=== PATIENT | male | born 1935 | race Caucasian/White ===

== ENCOUNTER 2017-09-17 17:41 | Inpatient (IN) | payer BC, MEDICARE ==
[2017-09-17 18:27] VITALS: BMI 32.9
[2017-09-17] MEDS ORDERED: Pantoprazole 40 MG VIAL IVP SCH (18:30)
[2017-09-17 18:59] LABS: #Basophils 0.1 thou/uL (0.0-0.2); #Eosinphils 0.2 thou/uL (0.0-0.7); #Lymphocytes 1.2 thou/uL (1.20-3.40); #Monocytes 0.8 thou/uL (0.11-0.59); #Neutrophils 7.5 thou/uL (1.40-6.50); %Basophils 0.6 % (0.0-1.0); %Eosinophils 1.7 % (0.0-10.0); %Lymphocytes 12.3 % (21.0-51.0); %Monocytes 7.8 % (0.0-10.0); %Neutrophils 77.6 % (42.0-75.0); Mean Corpuscular HGB CONC 33.4 g/dL (32.0-36.0); Mean Corpuscular Hemoglobin 30.4 pg (27.0-31.0); Mean Corpuscular Volume 91.1 fL (78.0-98.0); Mean Platelet Volume 6.8 fL (7.4-10.4); Platelet Count 406 thou/uL (130-400); RBC Distribution Width 12.6 % (11.5-14.5); Red Blood Cell (RBC) Count 3.96 mill/uL (4.70-6.10); White Blood Cell (WBC) Count 9.6 thou/uL (4.8-10.8)
[2017-09-17 19:13] LABS: Anion Gap 14 mmol/L (10-20); BUN (Urea Nitrogen) 37 mg/dL (8.4-25.7); Calc. Creatinine Clearance 81 mL/min (70-130); Calcium 9.6 mg/dL (7.8-10.44); Carbon Dioxide 27 mmol/L (23-31); Chloride 100 mmol/L (98-107); Estimated GFR-MDRD 67; Glucose 77 mg/dL (83-110); Potassium 4.2 mmol/L (3.5-5.1); Sodium 137 mmol/L (136-145)
[2017-09-17] MEDS: Piperacillin/Tazobactam 3.375 GM in Sodium Chloride 0.9% 100 ML IVPB SCH (20:38)
[2017-09-17] MEDS: Gabapentin 300 MG CAP PO SCH (21:16)
[2017-09-18] MEDS: Piperacillin/Tazobactam 3.375 GM in Sodium Chloride 0.9% 100 ML IVPB SCH ×4 (01:51→19:54)
[2017-09-18 04:09] LABS: #Basophils 0.1 thou/uL (0.0-0.2); #Eosinphils 0.3 thou/uL (0.0-0.7); #Lymphocytes 1.4 thou/uL (1.20-3.40); #Monocytes 0.7 thou/uL (0.11-0.59); %Basophils 0.7 % (0.0-1.0); %Eosinophils 3.3 % (0.0-10.0); %Lymphocytes 16.9 % (21.0-51.0); %Monocytes 8.1 % (0.0-10.0); Hemoglobin 10.5 g/dL (14.0-18.0); Mean Corpuscular HGB CONC 33.9 g/dL (32.0-36.0); Mean Corpuscular Hemoglobin 30.9 pg (27.0-31.0); Mean Corpuscular Volume 91.2 fL (78.0-98.0); Mean Platelet Volume 6.7 fL (7.4-10.4); Platelet Count 346 thou/uL (130-400); RBC Distribution Width 12.6 % (11.5-14.5); White Blood Cell (WBC) Count 8.4 thou/uL (4.8-10.8)
[2017-09-18 04:24] LABS: Anion Gap 10 mmol/L (10-20); BUN (Urea Nitrogen) 31 mg/dL (8.4-25.7); Calc. Creatinine Clearance 96 mL/min (70-130); Calcium 8.4 mg/dL (7.8-10.44); Carbon Dioxide 27 mmol/L (23-31); Chloride 105 mmol/L (98-107); Estimated GFR-MDRD 82; Glucose 91 mg/dL (83-110); Sodium 138 mmol/L (136-145)
[2017-09-18] MEDS: Levothyroxine 150 MCG TAB PO SCH (05:30)
--- NOTE | 2017-09-18 08:10 | ULT ---
RIGHT UPPER QUADRANT ULTRASOUND: Date: 09/18/17 INDICATION: Concern for cholelithiasis. FINDINGS: There is a partially underdistended gallbladder with sludge and stones. No sonographic Rios's sign is reported. Common bile duct measures 4.2 mm. Pancreas is obscured. Right kidney measures 12.0 x 5.4 x 5.3 cm. There is a 1.2 cm exophytic cyst seen off the superior to mid pole of the right kidney. Smaller, 8.0 mm, cyst is seen off the anterior aspect of the upper pole of the right kidney. There is an adrenal adenoma seen within the right adrenal gland as seen and evaluated on comparison C Ts from 2004 and 2017. Liver is mildly enlarged, measuring 22.8 cm. IMPRESSION: 1. Cholelithiasis and gallbladder sludge without evidence of cholecystitis. 2. Right renal cyst. 3. Right adrenal adenoma. POS: [facility]
[2017-09-18] MEDS: Gabapentin 100 MG CAP PO SCH (09:21)
[2017-09-18] MEDS: Pantoprazole 40 MG VIAL IVP SCH (09:22)
[2017-09-18] MEDS: Gabapentin 300 MG CAP PO SCH (21:03)
[2017-09-19] MEDS: Piperacillin/Tazobactam 3.375 GM in Sodium Chloride 0.9% 100 ML IVPB SCH ×2 (01:50→08:39)
[2017-09-19 05:44] LABS: #Basophils 0.1 thou/uL (0.0-0.2); #Eosinphils 0.3 thou/uL (0.0-0.7); #Lymphocytes 1.4 thou/uL (1.20-3.40); #Monocytes 0.6 thou/uL (0.11-0.59); #Neutrophils 6.4 thou/uL (1.40-6.50); %Basophils 0.7 % (0.0-1.0); %Eosinophils 3.3 % (0.0-10.0); %Lymphocytes 15.7 % (21.0-51.0); %Monocytes 7.3 % (0.0-10.0); Hemoglobin 10.7 g/dL (14.0-18.0); Mean Corpuscular HGB CONC 33.2 g/dL (32.0-36.0); Mean Corpuscular Hemoglobin 30.6 pg (27.0-31.0); Mean Corpuscular Volume 92.3 fL (78.0-98.0); Mean Platelet Volume 6.8 fL (7.4-10.4); Platelet Count 433 thou/uL (130-400); RBC Distribution Width 12.6 % (11.5-14.5); White Blood Cell (WBC) Count 8.8 thou/uL (4.8-10.8)
[2017-09-19] MEDS: Levothyroxine 150 MCG TAB PO SCH (07:11)
[2017-09-19 08:27] VITALS: TEMP 97.5
[2017-09-19] MEDS: Gabapentin 100 MG CAP PO SCH (08:40)
[2017-09-19] MEDS: Pantoprazole 40 MG VIAL IVP SCH (08:41)
--- NOTE | 2017-09-19 11:29 | PRG ---
DATE OF SERVICE: 09/19/2017 SUBJECTIVE: Mr. Tsai feels better today, has no pain, no nausea. He is tolerating regular diet starting this morning. OBJECTIVE: VITAL SIGNS: He is afebrile. Vital signs are stable. ABDOMEN: Soft, nontender, nondistended. ASSESSMENT: Enteritis, resolving. PLAN: Discharge home on oral antibiotics for another week. Follow up with Dr. Yap. The me ntions gallstones seen on CT done at the [facility]. He does have chronic right subscapular p ain, so I suspect this is symptomatic, I would recommend elective outpatient laparoscopic cholecystec kati at a later date, not right now.
--- NOTE | 2017-09-19 11:34 | DIS ---
DATE OF ADMISSION: 09/17/2017 DATE OF DISCHARGE: 09/19/2017 ADMITTING DIAGNOSES: Small bowel enteritis, gout, benign prostatic hyperplasia, chronic pain, venous stasis disease. DISCHARGE DIAGNOSES: Small bowel enteritis, gout, benign prostatic hyperplasia, chronic pain, venous stasis disease. PROCEDURES: None. CONDITION AT DISCHARGE: Improved. STAFF: Taz Yap M.D. HOSPITAL COURSE: The patient was admitted with small bowel enteritis, initially on clear liquids onl y, on broad spectrum antibiotics. He is now improved clinically, has no residual pain. This morning, his infectious count is normal. His vital signs are stable. He is to be discharged home. We will give him a week of outpatient antibiotics. He will follow up with Dr. Yap in a week.
[2017-09-19 12:10] VITALS: BP 102/61
== END 2017-09-19 13:51 | disposition home or self-care (01) | DRG 392 ==
LOC: ONC 17:41
PROVIDERS: ADMIT Surgery; ATTEND Surgery
DX: K52.9 Noninfective gastroenteritis and colitis, unspecified (principal); M10.9 Gout, unspecified; N40.0 Benign prostatic hyperplasia without lower urinary tract symptoms; I87.8 Other specified disorders of veins; G89.29 Other chronic pain
CPT/HCPCS: 36415; 76705; 80048; 85025; A4216; C9113; J2543; J7050

== ENCOUNTER 2017-09-30 16:26 | Inpatient (IN) | payer BC, MEDICARE ==
[2017-09-30 16:53] LABS: #Basophils 0.1 thou/uL (0.0-0.2); #Eosinphils 0.2 thou/uL (0.0-0.7); #Lymphocytes 1.3 thou/uL (1.20-3.40); #Neutrophils 6.1 thou/uL (1.40-6.50); %Basophils 0.6 % (0.0-1.0); %Eosinophils 1.9 % (0.0-10.0); %Lymphocytes 14.8 % (21.0-51.0); %Monocytes 11.6 % (0.0-10.0); %Neutrophils 71.2 % (42.0-75.0); Mean Corpuscular HGB CONC 33.7 g/dL (32.0-36.0); Mean Corpuscular Volume 89.1 fL (78.0-98.0); Mean Platelet Volume 6.1 fL (7.4-10.4); Platelet Count 618 thou/uL (130-400); RBC Distribution Width 13.4 % (11.5-14.5); Red Blood Cell (RBC) Count 3.34 mill/uL (4.70-6.10); White Blood Cell (WBC) Count 8.6 thou/uL (4.8-10.8)
[2017-09-30 17:18] LABS: ALT (SGPT) 14 U/L (8-55); AST (SGOT) 21 U/L (5-34); Albumin 3.6 g/dL (3.4-4.8); Alkaline Phosphatase 88 U/L (40-150); Anion Gap 14 mmol/L (10-20); BUN (Urea Nitrogen) 26 mg/dL (8.4-25.7); Bilirubin, Total 0.6 mg/dL (0.2-1.2); CK (CPK) 47 U/L (30-200); Calc. Creatinine Clearance 0 mL/min (70-130); Calcium 9.1 mg/dL (7.8-10.44); Carbon Dioxide 28 mmol/L (23-31); Chloride 97 mmol/L (98-107); Estimated GFR-MDRD 49; Globulin 2.9 g/dL (2.4-3.5); Glucose 93 mg/dL (83-110); Lipase 89 U/L (8-78); Potassium 3.7 mmol/L (3.5-5.1); Protein, Total 6.5 g/dL (5.8-8.1); Sodium 135 mmol/L (136-145)
[2017-09-30 17:19] LABS: CKMB 1.4 ng/mL (0-6.6)
--- NOTE | 2017-09-30 17:30 | RAD ---
CHEST ONE VIEW: 09/30/17 HISTORY: Dizziness. COMPARISON: 08/21/14. FINDINGS: Left sided transvenous pacemaker with lead position right atrium and right ventricle. Elongation of t he aorta. There is cardiomegaly. Pulmonary vessels and hilum are normal. Blunting of the left costoph renic angle related to small effusion or atelectasis. The right costophrenic angle is clear. No conso lidation or masses. No pneumothorax or osseous abnormalities. IMPRESSION: 1. Cardiomegaly without evidence of congestive heart failure. 2. Small effusion or atelectasis in the left lung base. POS: [facility]
[2017-09-30 17:42] LABS: PTT 56.9 SEC (22.9-36.1)
[2017-09-30 17:44] LABS: INR-International Normal Ratio 1.9; Prothrombin Time 21.4 SEC (12.0-14.7)
[2017-09-30 17:45] LABS: Iron 23 ug/dL (65-175); Iron Binding Capacity, Total 345 mcg/dL (261-462)
[2017-09-30] MEDS ORDERED: Pantoprazole 40 MG VIAL ONE (18:04)
[2017-09-30 20:56] VITALS: BMI 31.4
[2017-09-30] MEDS ORDERED: Acetaminophen 325 MG TAB PO PRN (22:26)
[2017-09-30] MEDS ORDERED: Guaifenesin DM 100-10/5 ML UDCUP PO PRN (22:26)
[2017-09-30] MEDS ORDERED: Ondansetron HCl/PF 4 MG/2 ML Vial IVP PRN (22:26)
[2017-09-30] MEDS: Sodium Chloride 0.9% 1,000 ML IV SCH (23:23)
--- NOTE | 2017-10-01 04:08 | HP ---
REASON FOR ADMISSION: Possible GI bleed, labile hypertension. HISTORY OF PRESENT ILLNESS: The patient gives history of having black tarry stools 3 days back. He has not had any since then. He also mentions that 2 weeks back he had nausea, vomiting, and had gone to see his primary care physician Dr. Gallegos. He had a CT of the abdomen and ultrasound of the abdomen done which showed findings suggestive of inflammation/infection in the intestines. He was given an option to either undergo surgery or antibiotics. He chose antibiotics. From last week, his blood pressure has been labile, it goes down to 90/60 with dizziness and comes up to 126/70 at home. This has been ongoing from last 1 week. He checks his blood pressures 3 times a day. He went for followup with Dr. Gallegos this afternoon and was asked to go to the emergency room as due to heavy fluctuation in blood pressures with patient being symptomatic. PAST MEDICAL AND SURGICAL HISTORY: History of multiple colon surgeries, chronic atrial fibrillation with prior ablation, pacemaker, history of CHF, history of colon cancer. Tonsillectomy, mastoidectomy, vasectomy, hernia repair bilateral, has had electrical cardioversion done on 04/23/2010, AV guicho ablation done in 07/2010, had prior angiogram done in 06/2013, which showed mild to moderate coronary artery disease, diastolic dysfunction due to atrial fibrillation, hypothyroidism, sensorineural deafness. CURRENT MEDICATIONS: Aspirin 81 mg p.o. daily, Pradaxa 150 mg p.o. twice daily , allopurinol 300 mg p.o. daily, Avodart 0.5 mg p.o. q.a.m., Lasix 120 mg daily , Synthroid 150 mcg p.o. daily, Naprosyn 220 mg p.o. q.a.m., K-Dur 20 mEq p.o. daily. The patient finished a course of Levaquin and Flagyl. PERSONAL HISTORY: Does not abuse alcohol or drugs. 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 ALLERGIES: No known drug allergies. FAMILY HISTORY: No history of aortic aneurysm or coronary artery disease in both parents, per prior records. CODE STATUS: FULL. Power of mortgage assistant is his . REVIEW OF SYSTEMS: The following complete review of systems was negative, unless otherwise mentioned in the HPI or below: Constitutional: Weight loss or gain, ability to conduct usual activities. Skin: Rash, itching. Eyes: Double vision, pain. ENT/Mouth: Nose bleeding, neck stiffness, pain, tenderness. Cardiovascular: Palpitations, dyspnea on exertion, orthopnea. Respiratory: Shortness of breath, wheezing, cough, hemoptysis, fever or night sweats. Gastrointestinal: Poor appetite, abdominal pain, heartburn, nausea, vomiting, constipation, or diarrhea. Genitourinary: Urgency, frequency, dysuria, nocturia. Musculoskeletal: Pain, swelling. Neurologic/Psychiatric: Anxiety, depression. Allergy/Immunologic: Skin rash, bleeding tendency. PHYSICAL EXAMINATION: GENERAL: The patient is an 82-year-old male who is currently not in any acute distress. VITAL SIGNS: Blood pressure 103/60, pulse 70 per minute, respiratory rate 18 per minute, temperature 98.1 degrees Fahrenheit, saturating 95% on room air. NECK: Supple, no. No elevated JVD. HEENT: Eyes: Extraocular muscles intact. Pupils reacting to light. Oral cavity: Mucous membranes are moist. No exudates or congestion. CARDIOVASCULAR SYSTEM: S1, S2 heard. Regular rhythm. RESPIRATORY: Air entry 1+ bilateral. No rales or rhonchi. ABDOMEN: Soft, bowel sounds heard. No tenderness, rigidity, or guarding. EXTREMITIES: No peripheral edema or calf tenderness. VASCULAR SYSTEM: Peripheral pulses 1+ bilateral, no ischemic ulcerations or gangrene. CENTRAL NERVOUS SYSTEM: No gross focal deficits noted. The patient is alert, awake, oriented well. PSYCHIATRIC SYSTEM: The patient's mood is euthymic. No hallucinations or delusions. LABORATORY DATA AND X-RAY FINDINGS: White count of 8.6, H&H 10 and 29, platelet count 618 with 71% neutrophils, MCV is 89. PT and INR is 21 and 1.9, PTT 56. Sodium 135, serum chloride 97, serum bicarbonate 28, BUN 26, creatinine 1.4. Serum iron 23, ferritin is 80. Liver enzymes are within normal limits. Albumin is 3.6. Lipase is 89. Chest x-ray done shows cardiomegaly with small effusions. CLINICAL IMPRESSION AND PLAN: The patient will be admitted to telemetry for possible gastrointestinal bleed with labile hypertension and feeling dizzy and unable to concentrate. We will reevaluate his CBC in the morning. His current hemoglobin is 10. We will also place him on normal saline at 50 mL per hour. We will obtain orthostatic blood pressures. We will continue his Avodart, Zyloprim, Synthroid for now. He will be on Protonix 40 mg IV q.12 hourly. The patient's Pradaxa, aspirin, and Aleve all three of which will be held for now. On the , the patient had an ultrasound done which showed cholelithiasis and gallbladder sludge without evidence of cholecystitis. He was briefly admitted by Dr. Agustin for small bowel enteritis and was sent home on Levaquin and Flagyl then. If his hemoglobin stays stable around 10 grams then patient will likely require a CT of the abdomen and pelvis in the morning. If his hemoglobin drops, then he likely will need a Gastroenterology consultation. He has history of chronic atrial fibrillation and is on Pradaxa for the same. We will closely monitor his vital signs as well and he will be on normal saline at 50 mL per hour. [facility]
[2017-10-01] MEDS: Levothyroxine 150 MCG TAB PO SCH (05:22)
[2017-10-01 05:42] LABS: #Basophils 0.1 thou/uL (0.0-0.2); #Eosinphils 0.2 thou/uL (0.0-0.7); #Lymphocytes 1.5 thou/uL (1.20-3.40); #Monocytes 0.9 thou/uL (0.11-0.59); #Neutrophils 5.7 thou/uL (1.40-6.50); %Basophils 0.7 % (0.0-1.0); %Eosinophils 2.6 % (0.0-10.0); %Lymphocytes 18.1 % (21.0-51.0); %Monocytes 10.7 % (0.0-10.0); %Neutrophils 67.8 % (42.0-75.0); Hemoglobin 9.9 g/dL (14.0-18.0); Mean Corpuscular HGB CONC 32.9 g/dL (32.0-36.0); Mean Corpuscular Hemoglobin 29.5 pg (27.0-31.0); Mean Corpuscular Volume 89.6 fL (78.0-98.0); Platelet Count 580 thou/uL (130-400); RBC Distribution Width 13.3 % (11.5-14.5); Red Blood Cell (RBC) Count 3.34 mill/uL (4.70-6.10); White Blood Cell (WBC) Count 8.5 thou/uL (4.8-10.8)
[2017-10-01 05:54] LABS: Anion Gap 11 mmol/L (10-20); BUN (Urea Nitrogen) 19 mg/dL (8.4-25.7); Calc. Creatinine Clearance 75 mL/min (70-130); Calcium 8.6 mg/dL (7.8-10.44); Carbon Dioxide 28 mmol/L (23-31); Chloride 101 mmol/L (98-107); Estimated GFR-MDRD 68; Glucose 90 mg/dL (83-110); Potassium 3.4 mmol/L (3.5-5.1); Sodium 137 mmol/L (136-145)
[2017-10-01] MEDS ORDERED: Prevnar 13-Val Conj/PF 0.5 ML SYRINGE IM ONE (09:00)
[2017-10-01] MEDS: Allopurinol 300 MG TAB PO SCH (09:29)
[2017-10-01] MEDS: Dutasteride 0.5 MG CAP PO SCH (09:29)
[2017-10-01] MEDS: Pantoprazole 40 MG VIAL IVP SCH ×2 (09:30→20:28)
[2017-10-01] MEDS: Enoxaparin Sodium 40 MG/0.4 ML SYRINGE SC SCH (09:30)
--- NOTE | 2017-10-01 11:17 | PQF ---
CLINICAL DOCUMENTATION IMPROVEMENT CLARIFICATION FORM: ICD-10 Updated PLEASE DO AN ADDENDUM TO THE PROGRESS NOTE WITH ANY DOCUMENTATION UPDATES OR ADDITIONS AND CARRY THROUGH TO DC SUMMARY. THANK YOU. DATE: 10/01/17 ATTN : DR. CRUZ Please exercise your independent, professional judgment in responding to the clarification form. Clinical indicators are provided on the bottom of this form for your review Please check appropriate box(s): [ ] Acute blood loss anemia [ ] Post-op anemia related to acute blood loss [ ] Anemia: [ ] Aplastic [ ] Nutritional [ ] Drug induced (specify) ___ [ ] Hemolytic [ ] Hereditary [ ] Acquired [ ] Autoimmune [ ] Non-autoimmune [ ] Enzyme disorder [ ] Chronic Anemia: [ ] Blood loss [ ] Hemolytic [ ] Simple [ ] Due to Vitamin B12 Deficiency [ ] Other [ ] Anemia of Chronic Disease (please specify) [ ] Anemia due to Neoplasm: [ ] Primary [ ] Secondary [ ] Anemia due to (please choose): [ ] Due to Chemotherapy [ ] Due to Radiotherapy [ ] Due to Immunotherapy [ ] Other diagnosis [ ] Unable to determine In addition, please specify: Present on Admission (POA): [ ] Yes [ ] No [ ] Unable to determine For continuity of documentation, please document condition throughout progress notes and discharge summary. Thank You. CLINICAL INDICATORS - SIGNS / SYMPTOMS / LABS H&P: "REASON FOR ADMISSION: POSSIBLE GI BLEED" "THE PATIENT GIVES HISTORY OF HAVING BLACK TARRY STOOLS 3 DAYS BACK" HGN 09/30: 10.0 HGN 10/01: 9.9 RISKS: RECENT INTESTINAL INFECTION H/O MULTIPLE COLON SURGERIES ANTICOAGULATION MEDICATIONS TREATMENT: IV FLUIDS TRANSFUSION OF PACKED CELLS (This form is maintained as a part of the permanent medical record) 2014 [employer]. All Rights Reserved ANTONIETA [email or web address] Office: [phone] [facility]
[2017-10-01] MEDS ORDERED: Sodium Chloride 0.9% 250 ML IV SCH (12:45)
[2017-10-01 19:38] LABS: Hemoglobin 10.2 g/dL (14.0-18.0)
--- NOTE | 2017-10-01 23:27 | PDOC.PN ---
- Objective Resuscitation Status: Resuscitation Status FULL:Full Resuscitation Vital Signs & Weight: Vital Signs (12 hours) Temp Pulse Resp BP Pulse Ox 10/01/17 19:05 97.6 F 85 16 112/56 L 94 L 10/01/17 17:49 73 97/53 L 10/01/17 15:29 98.3 F 72 18 96/57 L 97 10/01/17 13:39 74 95/60 10/01/17 12:23 97.4 F L 70 18 93/52 L 92 L I&O: 09/30/17 10/01/17 10/02/17 06:59 06:59 06:59 Intake Total 330 2170 Output Total 275 100 Balance 55 2070 Result Diagrams: 10/01/17 19:27 10/01/17 05:25 Dx/Plan - Plan * .
[2017-10-02] MEDS: Sodium Chloride 0.9% 1,000 ML IV SCH ×2 (03:04→11:44)
--- NOTE | 2017-10-02 04:25 | CON ---
DATE OF SERVICE: 10/01/2017 REASON FOR CONSULTATION: GI bleed. HISTORY OF PRESENT ILLNESS: Mr. Tsai is an 82-year-old gentleman who was admitted to the [facility] yesterday evening from Dr. Gallegos, his primary physician's office for fluctuating blood pressures and black stools for a few days. Patient reports he was actually here after he gone to his PCP with some loose stools and had a CAT scan at [facility] that apparently showed enteritis. This was nonspecific. It was felt that possibly he had infectious enteritis. He was seen by Dr. Jose monte and ultimately discharged today after admission on liquids and outpatient antibiotics. Today, on this admission, he states that he had dizziness for about 3 days before coming in and blood pressure fluctuations. Today, the patient's tells me that he has had black stools for 3 days. The nurse tells me he has had 2 black stools today. Presently, he feels okay, although he is a darek le bit upset. He is hungry and no one is letting him eat. In March of this year, he was seen for some diarrhea and bloody stool, which was felt to be infectious as well. At that time, he had an upp er endoscopy with Dr. Fabian, EGD at this hospital on 03/23/2017 and 03/25/2017, which was normal. The patient does have a history of colorectal cancer about 10 years ago. He has had a colonoscopy about 1-2 years ago at [facility]. He reports that I did this and told him that it was normal. LABORATORY DATA: Labs today, BUN was 26 when he came in, it was 19 today. Creatinine 1.4 and 1.05 t roderick, hemoglobin was 10.0 yesterday and 9.9 at 5 this morning, it was 10.7 on 09/19/2017. His white count was 580. Presently he feels well. He denies NSAID use. He takes Pradaxa, which did not help for which he has not had. This is the second day he had not had it. He was on Lovenox, this has bee n held. INR is 1.9. Liver function tests normal, lipase today on admission, electrolytes and CBC as per HPI. PAST MEDICAL HISTORY: Paroxysmal atrial fibrillation, prior attempted ablation, pacemaker, congestiv e heart failure with ejection fraction of 50% and significant diastolic dysfunction. He has a sensor ineural deafness, hypothyroidism. PAST SURGICAL HISTORY: Includes colon resection for colon cancer, and a colonoscopy about a year or two ago that was reportedly normal. An EGD in March of this year, which was normal. Angiogram on 07/04 with moderate to mild coronary artery disease. MEDICATIONS: He is on Aspirin, Pradaxa 150 b.i.d., allopurinol, Avodart, Lasix, Synthroid, Naprosyn, K-Dur and Levaquin. He was recently on metronidazole and Flagyl. MEDICATIONS: Tylenol, zolpidem or Avodart, Lovenox, Robitussin, Synthroid, Zofran, Protonix 40 IV q. 12, normal saline 50 an hour. PHYSICAL EXAMINATION: GENERAL: He is resting in bed. His is at the bedside. He is very hard of hearing. VITAL SIGNS: Temperature is 98, pulse 72, blood pressure 197/53. LUNGS: Clear. HEART: Regular rate and rhythm. ABDOMEN: Soft and nontender. There is no rebound or guarding. Bowel sounds are present, hyperactiv e. RECTAL EXAMINATION: Reveals melenic stool. ASSESSMENT: 1. Gastrointestinal bleed. He has melena on rectal exam. He takes aspirin and Plavix and Naprosyn at home and ulcer is the most likely etiology. 2. He has had previous issues with concern for gastrointestinal bleeding, one was in March, I [facility] it was this year, but actually last year. He had an upper endoscopy at the hospital, which was n ormal. He had a colonoscopy about a year or two ago at the [facility] for history of colorectal cancer. 3. The patient is on chronic anticoagulation, is probably a little bit over anticoagulated was on Pr adaxa, one would not expect an elevated INR, his is 1.9. RECOMMENDATIONS: 1. Check an H&H now. He is hypotensive. 2. Continue IV Protonix q.12 hours. 3. EGD in the morning. 4. If patient's hemoglobin drops below 7, will need to be resuscitated.
[2017-10-02] MEDS: Levothyroxine 150 MCG TAB PO SCH (06:09)
--- NOTE | 2017-10-02 11:13 | OP ---
DATE OF PROCEDURE: 10/02/2017 SURGEON: Ronnell White M.D. PROCEDURE: Esophagogastroduodenoscopy. PREPROCEDURE DIAGNOSES: 1. Melena. 2. Mild low blood pressure, but stable hemoglobin around 10. POSTOPERATIVE DIAGNOSES: 1. Hiatal hernia with no stigmata of bleeding such as Remi ulcers or erosions. 2. Normal esophagus, no signs of esophagitis. 3. Normal stomach in forward and retroflexed views. 4. Normal duodenal bulb in second and third portion. 5. Only yellow bile was noted in the upper GI tract extending to the third portion of the duodenum. 6. Two duodenal diverticula noted. No stigmata of bleeding. RECOMMENDATIONS: 1. As the patient has had a normal colonoscopy within last year and a half at the [facility] and a normal colonoscopy about 2 years before that as well, I recommend getting a tagge d bleeding scan. 2. I would hold Lovenox and his Pradaxa. I would check serial H&Hs. If hemoglobin is less than 10 I would transfuse a unit of blood secondary to his low blood pressure. 3. Would look for cardiac causes or medication causes of his hypotension that were present on admiss ion as his hemoglobin has remained right around 10 since he has been admitted. It is unclear how muc h he is truly bleeding. ANESTHESIA: TIVA. PROCEDURE IN DETAIL: After the patient was informed of the risks, benefits and possible complication s of endoscopy to include perforation, reactions to medication and aspiration, informed consent obtai nathanael. The patient was brought to endoscopy suite where he was sedated in gradual fashion. Once he wa s comfortable a bite block was placed in the incisural orifice. The endoscope was advance through th e esophagus, stomach, and second and third portion of duodenum and to the third and fourth portion. There were no bleeding sites identified. There was clear yellow bile in the duodenum. There was a d uodenal diverticula in the third portion of the duodenum and also at the periampullary region. The p ylorus was normal. The bulb was normal. Retroflexed views in the stomach were normal except for the hiatal hernia. There were no Remi's ulcerations or erosions or Dieulafoy-like lesions. The esop hagus was normal. The scope was removed. The patient tolerated procedure well with no complications .
[2017-10-02] MEDS: Allopurinol 300 MG TAB PO SCH (11:42)
[2017-10-02] MEDS: Pantoprazole 40 MG VIAL IVP SCH ×2 (11:42→21:09)
[2017-10-02] MEDS: Dutasteride 0.5 MG CAP PO SCH (11:42)
[2017-10-02] MEDS: Enoxaparin Sodium 40 MG/0.4 ML SYRINGE SC SCH (11:53)
[2017-10-02 12:12] LABS: Hemoglobin 9.2 g/dL (14.0-18.0)
--- NOTE | 2017-10-02 15:36 | NM ---
NUCLEAR MEDICINE BLEEDING SCAN: Date: 10/02/17 HISTORY: GI bleed. Normal EGD today. Black, tarry-colored stools. Normal colonoscopy yesterday. TECHNIQUE: Patient administered 28 mCi of technetium-99m tagged red blood cells. Static images were performed fo r a total of 89 minutes. FINDINGS: Expected distribution of the radiotracer. No evidence of an active GI bleed. IMPRESSION: No scintigraphic evidence of active GI bleed. POS: [facility]
[2017-10-02] MEDS ORDERED: GoLYTELY 4,000 ml Bottle PO SCH (19:15)
[2017-10-02 19:39] LABS: Hemoglobin 10.9 g/dL (14.0-18.0)
[2017-10-03] MEDS: Sodium Chloride 0.9% 1,000 ML IV SCH ×2 (01:04→14:54)
--- NOTE | 2017-10-03 04:37 | PDOC.PN ---
- Subjective Encounter Start Date: 10/02/17 Encounter Start Time: 15:00 Subjective: nsg notes rev, radha ovn, pt still dizzy but less frequently -: no new c/o - Objective Resuscitation Status: Resuscitation Status FULL:Full Resuscitation Vital Signs & Weight: Vital Signs (12 hours) Temp Pulse Resp BP BP Pulse Ox 10/03/17 04:00 97.3 F L 88 20 133/65 10/03/17 00:00 73 16 92/59 L 10/02/17 20:00 97.9 F 77 18 117/68 96 I&O: 10/01/17 10/02/17 10/03/17 06:59 06:59 06:59 Intake Total 330 2950 735 Output Total 275 575 25 Balance 55 4285 710 Result Diagrams: 10/02/17 19:31 10/01/17 05:25 Phys Exam - Physical Examination Constitutional: NAD HEENT: PERRLA, sclera anicteric Respiratory: no wheezing, no rales, no rhonchi, clear to auscultation bilateral Cardiovascular: RRR, no significant murmur, no rub Gastrointestinal: soft, non-tender, positive bowel sounds Neurological: moves all 4 limbs Dx/Plan - Plan * dizziness with melena * pt c/o of brbpr earlier today as well * s/p endoscopy and tagged rbc scan - grossly unremarkable * apprec GI c/s * H/H grossly stable but slight downward trend hypotension * improving * hold anithypertensives and diuretics * ? related to volume loss * cautious IV hydration diet: cardiac activity: as fracisco, rec PT dvt ppx d/w pt and his at bedside NB: pt limited by hearing impairment greater than 30 min spent at bedside reviewing plan as above and discussing findings with pt and his Review of Systems - Medications/Allergies Allergies/Adverse Reactions: Allergies Allergy/AdvReac Type Severity Reaction Status Date / Time No Known Allergies Allergy Verified 09/30/17 20:47 Medications: Current Medications Acetaminophen (Tylenol) 650 mg PO Q4H PRN PRN Reason: Headache/Fever or Pain Allopurinol (Zyloprim) 300 mg PO QAM [facility] Last Admin: 10/02/17 11:42 Dose: 300 mg Dutasteride (Avodart) 0.[facility] [place] Admin: 10/02/17 11:42 Dose: 0.5 mg Guaifenesin/Dextromethorphan (Robitussin Dm) 15 ml PO Q4H PRN PRN Reason: Cough Sodium Chloride (Normal Saline 0.9%) 1,000 mls @ 75 mls/hr IV .[id number] [facility] Last Admin: 10/03/17 01:04 Dose: Not Given Levothyroxine Sodium (Synthroid) 150 mcg PO 0600 [facility] Last Admin: 10/02/17 06:09 Dose: 150 mcg Ondansetron HCl (Zofran) 4 mg IVP Q6H PRN PRN Reason: Nausea/Vomiting Pantoprazole Sodium (Protonix) 40 mg IVP Q12HR [facility] Last Admin: 10/02/17 21:09 Dose: 40 mg Sodium Chloride (Flush - Normal Saline) 10 ml IVF Q12HR [facility] Last Admin: 10/02/17 21:10 Dose: 10 ml Sodium Chloride (Flush - Normal Saline) 10 ml IVF PRN PRN PRN Reason: Saline Flush
[2017-10-03] MEDS: Levothyroxine 150 MCG TAB PO SCH (06:32)
[2017-10-03] MEDS: Pantoprazole 40 MG VIAL IVP SCH (09:12)
[2017-10-03] MEDS: Allopurinol 300 MG TAB PO SCH (09:12)
[2017-10-03] MEDS: Dutasteride 0.5 MG CAP PO SCH (09:12)
[2017-10-03] MEDS ORDERED: Promethazine HCl 25 MG/ML VIAL SLOW IVP PRN (11:45)
[2017-10-03] MEDS ORDERED: Promethazine HCl 25 MG/ML VIAL IM PRN (11:45)
[2017-10-03] MEDS ORDERED: Ondansetron HCl/PF 4 MG/2 ML Vial IVP PRN (11:45)
[2017-10-03] MEDS ORDERED: PROPOFOL 200 MG/20 ML VIAL ONE (13:04)
[2017-10-03] MEDS ORDERED: Lidocaine 1% PF 5 ML VIAL ONE (13:04)
[2017-10-03 16:52] VITALS: BP 100/66; TEMP 97.4
--- NOTE | 2017-10-03 18:10 | OP ---
DATE OF PROCEDURE: 10/03/2017 OPERATIVE PROCEDURE: Colonoscopy. PREOPERATIVE DIAGNOSES: Gastrointestinal bleeding, negative EGD. The patient has history of colon c ancer, status post surgery many years ago. The patient underwent colonoscopy. 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 At the time of endoscopy, no bleeding seen . No other pathology seen. PROCEDURE IN DETAIL: The patient was placed on his left lateral position and was given sedation by A nesthesia Department. A rectal exam was done. The scope was advanced into the rectum. No lesions f elt on rectal exam. A Pentax video colonoscope was introduced into the rectum and advanced all the w ay into the cecum. The prep was good. The mucosa appears normal throughout the colon. The appendic al opening, ileocecal valve, cecum, no pathology seen. The colon was completely free of any blood or any coffee-ground material. The prep was good. Withdrawal of scope from the cecum to the ascending colon and hepatic flexure, no pathology seen. The transverse colon showed occasional diverticula. The splenic flexure and descending colon, no pathology seen. It appears that he has had a previous s igmoid resection. The anastomotic area appears healthy. He has some couple of anastomotic are a. Retroflexion of scope in the rectum show no pathology except for small hemorrhoids. RECOMMENDATIONS: 1. Heart healthy diet. 2. From a GI standpoint, he can be discharged home today. He will follow up with Dr. Ronnell Casey as an outpatient in the future.
--- NOTE | 2017-10-04 09:02 | DIS ---
DATE OF ADMISSION: 09/30/2017 DATE OF DISCHARGE: 10/03/2017 DISCHARGE DIAGNOSES: 1. Lower gastrointestinal bleed. 2. Atrial fibrillation. 3. Borderline hypotension. 4. Dizziness. 5. History of congestive heart failure. 6. History of pacemaker. HISTORY OF PRESENT ILLNESS: This patient is an 82-year-old male with history of complicated atrial f ibrillation situation who is followed by Dr. Jonathan Box. Patient is on Pradaxa and aspirin. He presented to the emergency department with the complaint of melanotic stools. The patient also had some related dizziness, and his blood pressure was in the 90s at times. The patient reported he had had a prior history of similar symptoms with lower GI bleeding. Given the fact that he was borderlin e hypotensive and was dizzy concerning for possible symptomatic hypotension. Patient was admitted to the hospital for further evaluation. Initially, his hemoglobin was 10, platelet count was 618. INR was 1.9. PTT is 56, PT is 21. BUN 26, creatinine 1.4. Iron was 23, ferritin 80. HOSPITAL COURSE: Patient was admitted to the hospital and his Pradaxa and aspirin were held. GI was consulted. The patient subsequently underwent upper endoscopy with no significant findings. He the n underwent a GI bleeding scan, which was also unremarkable and then ultimately on the day of dischar ge colonoscopy without significant findings. The patient's hemoglobin remained stable throughout his hospitalization with the initial level being 10.0 and his level at discharge being 10.9. PLAN: The patient's blood pressure was somewhat up and down, but ultimately on the day of discharge, he was ambulating well in the hallway following his colonoscopy and his blood pressure was 98/55 but he was completely asymptomatic with that and eager for discharge. I had a long discussion with the patient regarding the risks and benefits of being on the anticoagulation in the setting of the GI ble ed. Ultimately, I believe this is something he needs to follow up with Dr. Box to discuss. In the interim, however, he should remain off the anticoagulation for approximately 1 week to allow all bleeding to stop and all bleeding areas to clot and heal properly. He understands the potential ris k of stroke during that time, albeit somewhat low. DISPOSITION: Patient will be discharged to home. He will be on his usual diet and he will continue with his usual home medications to include Avodart 0.5 mg q.a.m., aspirin 81 mg every day, allopurino l 300 q.a.m., potassium 200 mEq b.i.d., Zofran 4 mg q.6., multivitamin 1 p.o. q.a.m., levothyroxine 1 50 mcg every day, and Lasix 120 mg p.o. daily. Patient is to have his usual activity level and he is to follow up with his primary care physician, Nnamdi Gallegos in 1 week and he is to follow up with Dr. Box within 1 week as well. Patient i s to return to the emergency department, should he have any problems prior to his followup.
== END 2017-10-03 18:12 | disposition home or self-care (01) | DRG 378 ==
LOC: ERS 16:26 → 2NO 19:51
PROVIDERS: ADMIT Internal Medicine Infectious Disease; ATTEND Internal Medicine Infectious Disease
PROC: 0DJ08ZZ Inspection of Upper Intestinal Tract, Via Natural or Artificial Opening Endoscopic (ICD-10-PCS; 2017-10-02)
PROC: 0DJD8ZZ Inspection of Lower Intestinal Tract, Via Natural or Artificial Opening Endoscopic (ICD-10-PCS; principal; 2017-10-03)
DX: K92.1 Melena (principal); I50.30 Unspecified diastolic (congestive) heart failure; I48.91 Unspecified atrial fibrillation; I95.9 Hypotension, unspecified; R42 Dizziness and giddiness; K57.30 Diverticulosis of large intestine without perforation or abscess without bleeding; K44.9 Diaphragmatic hernia without obstruction or gangrene; I25.10 Atherosclerotic heart disease of native coronary artery without angina pectoris; Z85.038 Personal history of other malignant neoplasm of large intestine; Z95.0 Presence of cardiac pacemaker; Z79.01 Long term (current) use of anticoagulants; Z79.82 Long term (current) use of aspirin
CPT/HCPCS: 36415; 71045; 78278; 80048; 80053; 82274; 82550; 82553; 82728; 83540; 83550; 83690; 84443; 84484; 85014; 85018; 85025; 85610; 85730; 86850; 86870; 86900; 86901; 86905; 86922; 93005; 93306; 96361; 96374; A4216; A9604; C9113; J1650; J2001; J2704

== ENCOUNTER 2018-04-29 08:04 | Inpatient (IN) | payer BC, MEDICARE ==
[2018-04-29] MEDS ORDERED: Ondansetron PF 4 MG/2 ML Vial ONE ×2 (08:14→10:31)
[2018-04-29] MEDS ORDERED: Morphine 4 MG/ML VIAL ONE (08:30)
[2018-04-29 08:36] LABS: #Basophils 0.1 thou/uL (0.0-0.2); #Eosinphils 0.2 thou/uL (0.0-0.7); #Lymphocytes 1.2 thou/uL (1.20-3.40); #Monocytes 0.6 thou/uL (0.11-0.59); #Neutrophils 4.5 thou/uL (1.40-6.50); %Basophils 1.1 % (0.0-1.0); %Eosinophils 3.1 % (0.0-10.0); %Lymphocytes 18.1 % (21.0-51.0); %Monocytes 8.8 % (0.0-10.0); %Neutrophils 68.8 % (42.0-75.0); Hemoglobin 16.1 g/dL (14.0-18.0); Mean Corpuscular Hemoglobin 28.2 pg (27.0-31.0); Platelet Count 242 thou/uL (130-400); RBC Distribution Width 14.2 % (11.5-14.5); White Blood Cell (WBC) Count 6.6 thou/uL (4.8-10.8)
[2018-04-29 08:51] LABS: ALT (SGPT) 18 U/L (8-55); AST (SGOT) 17 U/L (5-34); Albumin 3.8 g/dL (3.4-4.8); Alkaline Phosphatase 90 U/L (40-150); Anion Gap 14 mmol/L (10-20); BUN (Urea Nitrogen) 24 mg/dL (8.4-25.7); Bilirubin, Total 0.9 mg/dL (0.2-1.2); Calc. Creatinine Clearance 0 mL/min (70-130); Calcium 9.2 mg/dL (7.8-10.44); Carbon Dioxide 22 mmol/L (23-31); Chloride 107 mmol/L (98-107); Estimated GFR-MDRD 73; Globulin 2.8 g/dL (2.4-3.5); Glucose 145 mg/dL (83-110); Lipase 40 U/L (8-78); Potassium 4.1 mmol/L (3.5-5.1); Protein, Total 6.6 g/dL (5.8-8.1); Sodium 139 mmol/L (136-145)
[2018-04-29] MEDS ORDERED: Promethazine HCl 25 MG/ML VIAL ONE (08:56)
--- NOTE | 2018-04-29 10:16 | CT ---
CTA CHEST WITH IV CONTRAST AND 3D POSTPROCESSING CTA ABDOMEN WITH IV CONTRAST AND 3D POSTPROCESSING: Date: 04/29/18 HISTORY: 82-year-old male with abdominal pain. FINDINGS: There are vascular calcifications without evidence of aneurysmal dilatation of the thoracoabdominal a karina. The lumen is well opacified without intimal flap to suggest dissection. The main pulmonary ferny tamiko are well opacified without filling defects to suggest central pulmonary embolism. There is a tin y right pleural effusion. No pericardial effusion is seen. There is incomplete visualization of a left-sided thyroid nodule. The ascending thoracic aorta measur es 4.0 cm in diameter and the descending thoracic aorta measures 3.4 cm in diameter. There are mild d ependent changes in the lung bases. 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 There is good flow in the celiac axis, SMA, MEGGAN and re nal arteries. There is suggestion of inflammatory change in the mesentery of the left lower quadrant with associated dilated small bowel loop which are incompletely visualized. A small hiatal hernia is present. No free air or free fluid is seen in the abdomen. No lymphadenopath y is noted in the chest or abdomen. There are degenerative changes in the thoracolumbar spine. No asc ites is seen. There are calcified gallstones. A 1.5 cm exophytic right renal cyst is noted. There is a fat-containing heterogenous 3.5 cm right adrenal mass, which is smaller compared to exam o f 09/16/17 (6 cm). This mass measured 3.5 cm and had findings consistent with that of a benign adenom a on 10/21/04. IMPRESSION: 1. No evidence of aortic dissection. 2. Tiny right pleural effusion. 3. Right renal cyst. 4. Cholelithiasis. 5. Heterogeneous 3.5 cm right adrenal mass with interval reduction in size since 09/06/17. 6. Changes in the LLQ as above. Etiology uncertain. Ischemic process not excluded. D/W Dr Cheikh Elder over the phone @ 9:43 am. CODE CR POS: [facility]
[2018-04-29] MEDS ORDERED: Iopamidol 370 76% 100 ML VIAL ONE (10:30)
--- NOTE | 2018-04-29 13:04 | CT ---
CT ABDOMEN AND PELVIS WITHOUT IV CONTRAST: Date: 04/29/18 INDICATION: History of abdominal pain with recent CT aortic dissection protocol performed earlier. FINDINGS: There is a closed loop small bowel obstruction with wall thickening and mesenteric edema in the left lower quadrant of the abdomen. There is no leonardo evidence of pneumatosis. Previously administered excreted IV contrast is seen within the renal collecting systems. Remainder o f exam does not appear appreciably changed from the comparison examination. Right adrenal lesion is s imilar appearing. Gallbladder demonstrates small stones. No focal hepatic lesion is evident. Pancreas is unremarkable appearing. Diverticula involving third stage of duodenum is again noted. Motion iza fact limits image detail. No definite acute osseous abnormality is evident. IMPRESSION: 1. Findings most suspicious for a closed loop obstruction in the left lower quadrant with dilated lo ops of inflamed small bowel in the left lower quadrant suspicious for strangulation. No leonardo evidenc e of pneumatosis is present. There is prominent mesenteric edema. Surgical consultation is recommende d. 2. Cholelithiasis. 3. Right adrenal lesion as detailed on prior exams. 4. Other chronic findings as above. Findings called to Dr. Elder at 1230 hours on 04/29/18. CODE CR. POS: [facility]
[2018-04-29] MEDS ORDERED: Rocuronium Bromide 10 MG/ML (10ML VIAL) ONE ×2 (13:10→16:23)
[2018-04-29] MEDS ORDERED: Vecuronium 10 MG VIAL ONE (13:10)
[2018-04-29] MEDS ORDERED: PHENYLEPHRINE-NS 100 MCG/ML 10 ML SYRINGE ONE (13:10)
[2018-04-29] MEDS ORDERED: Lidocaine 1% PF 5 ML VIAL ONE (13:10)
[2018-04-29] MEDS ORDERED: PROPOFOL 200 MG/20 ML VIAL ONE (13:10)
[2018-04-29] MEDS ORDERED: Bupivacaine HCl 0.5%/Epinephrine 1:200,000/PF 30 ml Vial ONE (14:48)
[2018-04-29] MEDS ORDERED: Fentanyl 100 MCG/2 ML VIAL ONE ×2 (15:44→21:43)
[2018-04-29] MEDS ORDERED: Sodium Chloride 0.9% 30 ML ONE (15:47)
[2018-04-29 16:00] LABS: INR-International Normal Ratio 1.3; PTT 43.3 SEC (22.9-36.1); Prothrombin Time 15.8 SEC (12.0-14.7)
[2018-04-29] MEDS ORDERED: cefOXitin Sodium/Dextrose,Iso 2 GM in Premix Bag 1 BAG IVPB SCH ×2 (16:15→21:45)
[2018-04-29] MEDS ORDERED: Norepinephrine 8 MG/0.9% NS 250 ML ONE (16:20)
[2018-04-29] MEDS ORDERED: Lidocaine 2% Jelly 5 ML TUBE ONE (16:23)
--- NOTE | 2018-04-29 16:33 | HP ---
HISTORY: This is an 82-year-old man, who was seen in an [facility] in [place] with insidious onset generalized lower abdominal pain started since last night. The pain is described as crampy and intermittent. The maximum intensity, he rated the pain as "12/10". Pain is associated with multiple episodes of dry heaves, though no leonardo emesis. Last bowel movement and flatus yesterday. The patient denies any unexplained weight loss. He has not experienced similar pain in the past. PAST MEDICAL HISTORY: Significant for coronary artery disease, chronic atrial fibrillation, status post previous pulmonary ablation, colon cancer, hypothyroidism, benign prostatic hypertrophy and gout. PAST SURGICAL HISTORY: Significant for partial colectomy, childhood tonsillectomy and adenoidectomy, bilateral inguinal herniorrhaphies, AV guicho ablation, coronary angiography, pacemaker implantation, and previous upper and lower endoscopies. SOCIAL HISTORY: He is and lives at home with his . He denies any cigarette smoking, ethanol, or illicit drug abuse. FAMILY HISTORY: Noncontributory for this patient's age. PRE-HOSPITAL MEDICATIONS: Includes; 1. Pradaxa 150 mg p.o. b.i.d. 2. Allopurinol 300 mg p.o. daily. 3. Avodart 0.5 mg p.o. daily. 4. Aspirin 81 mg p.o. daily. 5. Levothyroxine 150 mcg p.o. daily. 6. K-Dur 20 mEq p.o. daily. ALLERGIES: THE PATIENT DENIES ANY KNOWN DRUG ALLERGIES. REVIEW OF SYSTEMS: Ten-point review of systems is essentially unremarkable except as stated in past medical history and chief complaint. PHYSICAL EXAMINATION: GENERAL: This reveals an 82-year-old normally developed man, who is otherwise coherent, interactive, and appears stated age. The patient is alert and oriented x3. He appears to be in no acute distress at the time of my evaluation. VITAL SIGNS: Include blood pressure 106/68, pulse is 73, respiratory rate is 19, temperature is 98.2 degrees Fahrenheit, oxygen saturation is 93% on room air. HEENT: Reveals normocephalic and atraumatic. Pupils equal, round, reactive to light and accommodation. NECK: He has no jugular venous distention noted. HEART: Reveals irregular rate and irregular rhythm. LUNGS: Clear to auscultation bilaterally. Breathing, regular and nonlabored. ABDOMEN: Soft and distended with right lower quadrant tenderness to palpation. He has no rebound tenderness present. Liver and spleen are nonpalpable below costal margin. EXTREMITIES: Reveal 2+ radial and pedal pulses bilaterally. No ankle edema is present. NEUROLOGIC: Reveals no focal deficits present. LABORATORY FINDINGS: Today includes a CBC with 6,600 white blood cells, hemoglobin and hematocrit of 16.1 and 50.2 respectively. Platelet count is 242,000. Metabolic profile; sodium 139, potassium is 4.1, chloride is 107, bicarb is 22, BUN 24, creatinine 0.99, glucose 145, lactic acid is 1.6. AST and ALT normal at 17 and 18 respectively. Serum lipase is also normal at 40. I have personally reviewed the CT scan of the abdomen and pelvis, which was obtained earlier in [place], this is remarkable for incidental cholelithiasis. Also noted is loop of intestine in the left lower quadrant, which appeared to be closed-loop obstructed. There is surrounding fat stranding. There is otherwise no pneumatosis intestinalis observed. IMPRESSION: 1. Closed-loop small bowel obstruction, likely secondary to adhesions. 2. Qualitative coagulopathy. The patient is on Pradaxa. 3. History of chronic atrial fibrillation. 4. History of coronary artery disease. 5. History of chronic congestive heart failure. PLAN: 1. We will correct the patient's coagulopathy if indicated by coagulation studies. 2. The patient needs an urgent laparoscopic and possible laparotomy for lysis of adhesion. 3. Above findings and plan have been discussed with the patient and his at bedside. 4. I advised the patient of the risks and benefits of the proposed surgery to include, but not limited to bleeding, infection, injury to bowel or surrounding structures. 5. The patient also understands that due to his comorbidities, he faces additional risk for myocardial infarction versus perioperative respiratory failure. 6. I did inform the patient that if the bowel is nonviable, this may require segmental small bowel resection with primary anastomosis. 7. The patient and his , both indicated understanding information given. 8. I answered their questions. 9. The patient and his have granted consent for the surgical intervention. Job ID: [id number]
[2018-04-29] MEDS ORDERED: Dextrose 50% Abboject 50 ML SYRINGE SLOW IVP PRN (20:25)
[2018-04-29] MEDS ORDERED: Dextrose 5% in Water 1,000 ML IV PRN (20:25)
[2018-04-29] MEDS ORDERED: Ondansetron PF 4 MG/2 ML Vial IVP PRN (20:25)
[2018-04-29] MEDS ORDERED: Acetaminophen 1,000 MG in Premix Bag 1 BAG IVPB SCH (20:45)
[2018-04-29] MEDS ORDERED: Lactated Ringer's 1,000 ML IV SCH (20:45)
[2018-04-29] MEDS ORDERED: Propofol 1,000 MG/100 ML VIAL IV ONE (20:52)
--- NOTE | 2018-04-29 20:56 | RAD ---
SUPINE VIEW ABDOMEN: 04/29/18 HISTORY: GI bleeding. AP view abdomen obtained. There is a Dobhoff tube in place, distal tip overlying the fourth portion of the duodenum. Surgical taylor seen in the left lower abdomen. Bowel taylor also seen. No evidence of bowel obstruction or ileus seen. No dilated loops of bowel se en. A moderate amount of stool seen in the colon. IMPRESSION: No evidence of bowel obstruction or ileus. Dobhoff tube in good position. POS: [facility]
--- NOTE | 2018-04-29 21:01 | RAD ---
AP VIEW CHEST: 04/29/18 HISTORY: Endotracheal tube placement. AP view chest obtained on 04/29/18. Comparison made to previous exam from 09/30/17. AP view chest demonstrates an NG tube in place. Distal tip is overlying the body of the stomach with the side port at the region of the gastroesophageal junction. There is a dual lead intracardiac pacing device in place. A right subclavian central line is seen dis ashley tip overlying the right atrium. Cardiomegaly seen. Pulmonary vascular congestion seen. Endotracheal tube is in good position. There is some blunting of the left costophrenic angle compatible with a small left sided pleural effu tereza. IMPRESSION: 1. Cardiomegaly. 2. Lines and tubes in good position. Endotracheal tube is in good position. Nasogastric tube jaylan uld be advanced approximately 5 cm to be in optimum position. POS: [facility]
[2018-04-29 21:04] LABS: Actual Bicarbonate (HCO3a) 20.6 mEq/L (22-28); Base Excess (BEa) -6.3 mEq/L (-2.0 to +3.0); CO2 Tension 45.9 mmHg (35.0-45.0); Calcium, Ionized 1.11 mmol/L (1.12-1.30); Carboxyhemoglobin (COHb) 1.3 gm% (0.0-3.0); O2 Tension (PaO2) 123.4 mmHg (> 60.0); Potassium - ABG Lab 4.71 mmol/L (3.70-5.30); pH, Arterial 7.27 (7.35-7.45)
[2018-04-29 21:24] LABS: ALV-art Gradient 318.325 (0-20); Puncture Site LINE
[2018-04-29 21:35] LABS: #Lymphocytes 0.8 thou/uL (1.20-3.40); #Monocytes 0.6 thou/uL (0.11-0.59); #Neutrophils 11.5 thou/uL (1.40-6.50); %Eosinophils 0.1 % (0.0-10.0); %Monocytes 4.9 % (0.0-10.0); Hemoglobin 15.9 g/dL (14.0-18.0); Mean Corpuscular Hemoglobin 29.5 pg (27.0-31.0); Mean Corpuscular Volume 92.4 fL (78.0-98.0); Mean Platelet Volume 6.9 fL (7.4-10.4); Platelet Count 351 thou/uL (130-400); RBC Distribution Width 14.1 % (11.5-14.5); Red Blood Cell (RBC) Count 5.38 mill/uL (4.70-6.10); White Blood Cell (WBC) Count 12.9 thou/uL (4.8-10.8)
[2018-04-29 21:42] LABS: INR-International Normal Ratio 1.3; PTT 36.7 SEC (22.9-36.1); Prothrombin Time 16.4 SEC (12.0-14.7)
[2018-04-29 21:47] LABS: Anion Gap 12 mmol/L (10-20); BUN (Urea Nitrogen) 19 mg/dL (8.4-25.7); Calc. Creatinine Clearance 0 mL/min (70-130); Calcium 8.3 mg/dL (7.8-10.44); Carbon Dioxide 22 mmol/L (23-31); Chloride 109 mmol/L (98-107); Estimated GFR-MDRD 70; Glucose 159 mg/dL (83-110); Magnesium 1.5 mg/dL (1.6-2.6); Phosphorus 3.2 mg/dL (2.3-4.7); Potassium 4.7 mmol/L (3.5-5.1); Sodium 138 mmol/L (136-145)
[2018-04-29] MEDS ORDERED: Propofol 1,000 MG/100 ML VIAL IV PRN (21:48)
[2018-04-29] MEDS ORDERED: Fentanyl BOLUS 250 ML IVPB PRN (21:48)
[2018-04-29] MEDS ORDERED: Propofol BOLUS 1,000 MG/100 ML VIAL IV PRN (21:48)
[2018-04-29] MEDS ORDERED: Fentanyl 100 MCG/2 ML VIAL SLOW IVP SCH (22:00)
[2018-04-29] MEDS: cefOXitin Sodium/Dextrose,Iso 2 GM in Premix Bag 1 BAG IVPB SCH (22:00)
[2018-04-29] MEDS: fentaNYL Citrate/PF 2,000 MCG in Sodium Chloride 0.9% 60 ML IV SCH (22:12)
[2018-04-30] MEDS ORDERED: Lactated Ringer's 1,000 ML IV SCH (01:30)
[2018-04-30] MEDS ORDERED: Sodium Chloride 0.9% 250 ML 250 ML IVPB SCH (01:30)
[2018-04-30] MEDS ORDERED: Magnesium 2 GM/50 ML 2 GM in Premix Bag 1 BAG IVPB SCH (01:30)
[2018-04-30] MEDS ORDERED: Lactated Ringer's 500 ML IV SCH (02:45)
[2018-04-30 04:54] LABS: Band 34 % (5-11); Hemoglobin 14.7 g/dL (14.0-18.0); Lymphocytes 2 % (21-51); MDiff Complete? YES; Mean Corpuscular HGB CONC 31.7 g/dL (32.0-36.0); Mean Corpuscular Hemoglobin 29.4 pg (27.0-31.0); Mean Corpuscular Volume 92.7 fL (78.0-98.0); Mean Platelet Volume 7.4 fL (7.4-10.4); Monocytes 6 % (0-10); Neutrophil 56 % (42-75); Platelet Count 302 thou/uL (130-400); Platelet Morphology Comment Appears Adequate; RBC Distribution Width 13.9 % (11.5-14.5); Reactive Lymphocytes 2 % (0-10); White Blood Cell (WBC) Count 15.6 thou/uL (4.8-10.8)
[2018-04-30 04:56] LABS: Phosphorus 3.4 mg/dL (2.3-4.7)
[2018-04-30 05:03] LABS: Anion Gap 16 mmol/L (10-20); BUN (Urea Nitrogen) 25 mg/dL (8.4-25.7); Calc. Creatinine Clearance 49 mL/min (70-130); Carbon Dioxide 17 mmol/L (23-31); Chloride 109 mmol/L (98-107); Estimated GFR-MDRD 40; Glucose 172 mg/dL (83-110); Magnesium 2.3 mg/dL (1.6-2.6); Sodium 137 mmol/L (136-145)
[2018-04-30] MEDS: cefOXitin Sodium/Dextrose,Iso 2 GM in Premix Bag 1 BAG IVPB SCH ×2 (05:09→15:00)
--- NOTE | 2018-04-30 05:42 | OP ---
DATE OF PROCEDURE: 04/29/2018 PREOPERATIVE DIAGNOSES: 1. Acute closed-loop small-bowel obstruction. 2. Acute peritonitis secondary to #1. POSTOPERATIVE DIAGNOSES: 1. Acute closed-loop small-bowel obstruction. 2. Acute peritonitis secondary to #1. 3. Extensive intra-abdominal adhesions and strangulated proximal ileum. PROCEDURES PERFORMED: 1. Placement of a triple-lumen right subclavian central venous catheter. 2. Exploratory laparotomy. 3. Extensive adhesiolysis. 4. Segmental small bowel resection with primary anastomosis. 5. Placement of feeding nasojejunal tube. ANESTHESIA: General endotracheal. ESTIMATED BLOOD LOSS: 320 mL. FLUIDS GIVEN: 6 packs of platelets and 3500 mL of crystalloids. SPONGE AND INSTRUMENT COUNT: Verified as correct x2. COMPLICATIONS: None apparent at the time of operation. INDICATION FOR PROCEDURE: This is an 82-year-old man with history of multiple abdominal operations, who presented to the emergency department with insidious onset of generalize lower abdominal pain, which started about midnight. Pain was described as crampy and intermittent and was rated at "12/10" at maximum intensity. Clinical radiographic examination was consistent with acute closed-loop small-bowel obstruction, for which the patient was brought to the operating room for exploration. Findings are consistent with extensive intraabdominal adhesions, there is a strangulated mid jejunum involving a long segment of bowel. Distal to this, there was another shorter segment of proximal ileum, which is encased in a dense adhesion involving the umbilical mesh herniorrhaphy. DESCRIPTION OF PROCEDURE: Informed consent was obtained from the patient and his . The patient was brought to the operating room and placed in supine position. Following general anesthesia, the right chest wall was sterilely prepped and draped in usual fashion. The right subclavian vein was cannulated with an 18-gauge introducer needle returning dark venous blood. A guidewire was passed through the needle and advanced into the right subclavian vein without resistance. Needle was withdrawn over the guidewire. Stab incision was made adjacent to the guidewire using 11 scalpel. Dilator was passed over the guidewire, dilating the subcutaneous tissues. Finally, a triple-lumen central venous catheter was advanced over the guidewire and placed in the left subclavian vein without resistance. The guidewire was removed and dark venous blood was aspirated from all 3 ports, which were individually flushed with saline. Catheter was secured to anterior chest wall using 3-0 silk suture at two points. Biopatch and sterile dressings were applied. Attention was then directed to the abdomen, where we proceeded with laparotomy. A Caruso catheter was inserted and placed to bedside drain. Orogastric tube was inserted and placed to wall suction. The abdomen was sterilely prepped and draped in the usual fashion. The skin below the umbilicus was infiltrated with 0.5% Marcaine with epinephrine. A small infraumbilical incision was made using 11 scalpel at the midline. The umbilical stalk was grasped here and elevated. Veress needle was inserted and advanced into the peritoneal cavity, through which the abdomen was insufflated with 2 L of CO2 gas. Intraabdominal pressure was noted at 1 mmHg. Following abdominal insufflation, Veress needle was removed and a 5-mm trocar introduced using a Visiport under laparoscopy. Laparoscopy revealed a dense intraabdominal adhesions involving the multiple loops of small bowel and anterior abdominal wall. Also noted, he has some bloody ascites which was highly suggestive of strangulated bowel as we suspected this in a closed loop of bowel obstruction. Given this, we decided to convert this to a laparotomy. The abdomen was desufflated. All ports were removed. A midline incision was then made using a 10 scalpel. Incision was carried through subcutaneous tissues and maintained hemostasis using cautery. Fascia was incised in midline using cautery. Peritoneal cavity was carefully entered using a fresh scalpel. We encountered some adhesions along the way, which were meticulously taken down using Metzenbaum scissors. The incision was then extended superiorly and inferiorly. Dense omental adhesions were carefully taken down off the abdominal wall. We were then able to inspect the small bowel from ligament of Treitz, encountering extensive amount of jejunal diverticula along the way with no evidence of diverticulitis. Bowel to bowel adhesions were taken down using Metzenbaum scissors as they were encountered. We were then able to encounter a segment of small bowel, which is a trapped densely to the previous umbilical herniorrhaphy with mesh. This was tediously, but meticulously taken down using Metzenbaum scissors. Care was taken to avoid enterotomies. We then continued without dissection encountering a long segment of small bowel, which was trapped in an adhesive band causing a closed-loop bowel obstruction. The bowel was quite strangulated, hyperemic, and hemorrhagic. It was markedly thick walled. The mesentery also was markedly thickened and hemorrhagic. Once the adhesive bands were excised, we elected to leave the bowel to observe it for return of circulation and peristalsis. The remainder of the small bowel was freed from adhering tissues. This allowed us to run the rest of the bowel down to the terminal ileum. The large intestine was then inspected from the cecum through the ascending, transverse colon, down to the level of the colorectal anastomosis and besides some hard stools within the colon, no other pathology was palpated. The gallbladder was dilated and palpated with a small cholesterol stone. The gallbladder itself was normal appearing. Liver was palpated, free of any abnormalities. The previous orogastric tube was palpated within the gastric lumen. At this juncture, a feeding nasojejunal tube was inserted by Anesthesia. The tip of which was palpated by myself within the gastric lumen. The manipulated tip of this catheter into proximal small bowel without resistance. I then turned my attention to the previous adherent bowel to the umbilical hernia mesh. This bowel appeared to be aperistaltic. I decided to resect this bowel. To achieve this, rent was created in the mesentery proximal and distal to the involved segment, through which the AURORA stapler was introduced. Bowel was divided. Mesentry of the specimen was serially divided using LigaSure device with good hemostasis. This was passed off the operative field followed by transmission to Pathology. The staple ends were then approximated in a [id number] fashion using interrupted sutures of 3-0 silk. Enterotomies made at both apices, through which free ends of AURORA stapler were introduced and functional end-to-end, but anatomic [id number] enteroenterostomy was perfected. Mesenteric defect was closed using a running stitch of 2-0 Vicryl. I inspected the long segment of small bowel, which was previously trapped in a closed-loop obstruction and the bowel is now peristaltic and pinking up nicely. I decided to avoid resection. Finding no other pathology, exploration was terminated. All sponges and instrument were removed and accounted for. The abdominal cavity was copiously irrigated clear with saline solution, perfected hemostasis using cautery. I placed a #19 Don drain in the deep pelvis and allowing this to exit the abdominal cavity through a separate stab incision. Drain was secured to anterior abdominal wall using 2-0 silk suture. I then placed one sheet of Seprafilm in the deep pelvis, return part of the small bowel and placed two more pieces of Seprafilm in between small bowel loops prior they rest in place in the normal anatomic position. Omentum was drawn over the remainder of the viscera. Fascia was approximated in the midline using a running stitch of #1 double-stranded PDS. Subcutaneous tissue was irrigated clear with saline solution. Good hemostasis was noted. Skin was closed using taylor. Sterile dressings were applied. The patient tolerated the operation without any apparent complication and was returned to the intensive care unit in critical, but stable condition. Job ID: [id number]
[2018-04-30] MEDS ORDERED: Sodium Bicarb 50 MEQ/50 ML Abboject 8.4% SYRINGE IVP SCH (05:45)
[2018-04-30] MEDS ORDERED: Sodium Chloride 0.9% 1,000 ML IV SCH (05:45)
[2018-04-30] MEDS ORDERED: Sodium Bicarbonate 150 MEQ in Dextrose 5% in Water 1,000 ML IV SCH ×2 (05:45→09:31)
[2018-04-30] MEDS ORDERED: Sodium Bicarb 50 MEQ/50 ML VIAL ONE (05:45)
--- NOTE | 2018-04-30 06:04 | PDOC.EVN ---
Event Note - Event Note Event Note: Called by nurse overnight for minimal urine output per hour. Increased IVF with no change, CVP 1-3, IVF boluses ordered with no change. Asked to go ahead and get am labs. BP trending down. Bedside evaluation of patient and phone call to Dr. Che. Bicarb drip started and bicab bolus. DC LR. Pt on minimal sedation. Brown urine output currently from leonardo blood post OR. Bilat BS clear. Bilateral radial and pedal pulses 2+.
[2018-04-30] MEDS: HumaLOG 300 UNITS/3 ML VIAL SC PRN ×2 (06:25→12:56)
[2018-04-30 06:45] LABS: Actual Bicarbonate (HCO3a) 20.7 mEq/L (22-28); Base Excess (BEa) -2.2 mEq/L (-2.0 to +3.0); CO2 Tension 30.6 mmHg (35.0-45.0); Calcium, Ionized 1.03 mmol/L (1.12-1.30); Hemoglobin (Hb) 14.1 g/dL (14.0-18.0); O2 Tension (PaO2) 108.9 mmHg (> 60.0); Potassium - ABG Lab 4.75 mmol/L (3.70-5.30); pH, Arterial 7.45 (7.35-7.45)
[2018-04-30] MEDS ORDERED: Hydrocortisone Sod Succ/PF 100 mg/2 ml Vial IVP SCH (07:00)
[2018-04-30 07:05] LABS: Puncture Site ALINE
--- NOTE | 2018-04-30 08:46 | RAD ---
PORTABLE CHEST: DATE: 04/30/2018. PROVIDED CLINICAL HISTORY: Respiratory failure. FINDINGS: Comparison 04/29/2018. Significant interval change with respect to the prior examination is not apparent. IMPRESSION: As above. POS: [facility]
[2018-04-30] MEDS ORDERED: Enoxaparin Sodium 30 MG/0.3 ML SYRINGE SC SCH (09:00)
[2018-04-30] MEDS ORDERED: Calcium Chloride 1 GM/10 ML Abboject SYRINGE IVP STA (09:30)
[2018-04-30] MEDS ORDERED: Calcium Chloride 1 GM/10 ML Abboject SYRINGE ONE (09:31)
[2018-04-30] MEDS ORDERED: Albumin 5% 500 ML ONE (10:12)
[2018-04-30] MEDS ORDERED: Midazolam HCl 2 mg/2 ml Vial SLOW IVP PRN (11:01)
[2018-04-30] MEDS ORDERED: Famotidine/PF 20 mg/2ml Vial SLOW IVP SCH ×2 (11:15→21:00)
[2018-04-30] MEDS ORDERED: Albumin 5% 250 ML ONE (11:45)
[2018-04-30] MEDS: DOPamine 400 MG/D5W 250 ML 250 ML IVPB SCH (11:46)
[2018-04-30 13:22] LABS: Actual Bicarbonate (HCO3a) 25.8 mEq/L (22-28); Base Excess (BEa) 3.3 mEq/L (-2.0 to +3.0); CO2 Tension 32.2 mmHg (35.0-45.0); Calcium, Ionized 1.09 mmol/L (1.12-1.30); Carboxyhemoglobin (COHb) 1.2 gm% (0.0-3.0); O2 Tension (PaO2) 133.3 mmHg (> 60.0); Potassium - ABG Lab 4.22 mmol/L (3.70-5.30); pH, Arterial 7.52 (7.35-7.45)
[2018-04-30 13:29] LABS: Puncture Site ALINE
[2018-04-30 14:28] LABS: Anion Gap 9 mmol/L (10-20); BUN (Urea Nitrogen) 30 mg/dL (8.4-25.7); Calc. Creatinine Clearance 49 mL/min (70-130); Calcium 8.5 mg/dL (7.8-10.44); Carbon Dioxide 27 mmol/L (23-31); Chloride 106 mmol/L (98-107); Estimated GFR-MDRD 40; Glucose 184 mg/dL (83-110); Potassium 4.3 mmol/L (3.5-5.1); Sodium 138 mmol/L (136-145)
[2018-04-30] MEDS ORDERED: DOPamine 400 MG/D5W 250 ML 250 ML IVPB SCH (15:45)
[2018-04-30] MEDS: Heparin 5,000 UNITS/ML VIAL SC SCH ×2 (17:38→21:59)
[2018-04-30] MEDS: Dextrose 5 %-0.45 % NaCl 1,000 ML IV SCH (17:38)
[2018-04-30] MEDS: Piperacillin/Tazobactam 3.375 GM in Sodium Chloride 0.9% 100 ML IVPB SCH (22:00)
--- NOTE | 2018-04-30 22:27 | PRG ---
DATE OF SERVICE: 04/30/2018 HISTORY OF PRESENT ILLNESS: Mr. Tsai is an 82-year-old man who is postop day #1 status post exploratory laparotomy with extensive adhesiolysis, segmental small bowel resection with primary anastomosis. The patient was admitted to the intensive care unit in critical condition. Overnight, his urinary output dwindled and was poorly responsive to fluid resuscitation. This morning, I placed him on bicarbonate infusion for several hours, having also given him fluid boluses. He remains on full mechanical ventilator support. He is minimally sedated, but appears comfortable, moving all extremities and following commands. Over the course of the day, his urinary output is improving. He is now on dopamine at 3 to 5 mcg/kg per min achieving main arterial pressure of 65 to 70. PHYSICAL EXAMINATION: VITAL SIGNS: Current vital signs include blood pressure 107/47, pulse is 78, respiratory rate is 18, temperature is 100.7 degrees Fahrenheit, oxygen saturation is 96% on FiO2 of 50%. HEENT: Reveals pupils are equal, round, and reactive to light bilaterally. HEART: Reveals regular rate and rhythm. No murmurs or gallops auscultated. LUNGS: Reveal bibasilar rhonchi. Breathing is regular and nonlabored. ABDOMEN: Soft and moderately distended. Incision is intact and clean. EXTREMITIES: Reveal 2 +radial and pedal pulses bilaterally. He has bilateral pedal and ankle edema present. NEUROLOGIC: Reveals no focal deficits present. LABORATORY FINDINGS: Includes a CBC with 15,600 white blood cells, hemoglobin and hematocrit of 14.7 and 46.3 respectively. Platelet count is 302,000. Differential count is as follows, 56 segmented neutrophils, 34 bands, 2 lymphocytes, and 6 monocytes. Initial arterial blood gas today with pH 7.45, pCO2 is 31, pO2 of 109, base excess is -2.2. Ionized calcium 1.03. Metabolic profile includes sodium 138, potassium is 4.3, chloride is 106, bicarb is 27, BUN 30, creatinine is 1.67, glucose is 184. IMPRESSION: 1. Postop day #1 status post exploratory laparotomy with extensive adhesiolysis and segmental small bowel resection with primary anastomosis for strangulated closed loop small bowel obstruction. 2. Acute respiratory failure. 3. Acute kidney injury secondary to closed loop small bowel obstruction. 4. Acute metabolic alkalosis. PLAN: 1. Continue with full mechanical ventilator support until the patient is hemodynamically stable. 2. Continue with fluid resuscitation. We will discontinue bicarbonate infusion and convert to D5 half-normal saline. Monitor urinary output as endpoint of resuscitation. 3. Continue with broad-spectrum antibiotic therapy. 4. Above findings and plan has been discussed with the patient's family at bedside. They both indicated understanding of information given. I have answered their questions. TIME SPENT: Total critical care time is 50 minutes. Job ID: [id number]
[2018-05-01] MEDS: Dextrose 5 %-0.45 % NaCl 1,000 ML IV SCH ×3 (01:19→15:50)
[2018-05-01] MEDS: Piperacillin/Tazobactam 3.375 GM in Sodium Chloride 0.9% 100 ML IVPB SCH ×4 (03:37→21:05)
[2018-05-01 04:10] LABS: Lactic Acid 1.9 mmol/L (0.5-2.2)
[2018-05-01 04:14] LABS: Anion Gap 11 mmol/L (10-20); BUN (Urea Nitrogen) 30 mg/dL (8.4-25.7); Calc. Creatinine Clearance 57 mL/min (70-130); Carbon Dioxide 28 mmol/L (23-31); Chloride 104 mmol/L (98-107); Estimated GFR-MDRD 48; Glucose 146 mg/dL (83-110); Magnesium 2.1 mg/dL (1.6-2.6); Phosphorus 2.5 mg/dL (2.3-4.7); Potassium 3.7 mmol/L (3.5-5.1); Sodium 139 mmol/L (136-145)
[2018-05-01 04:18] LABS: Band 20 % (5-11); Hemoglobin 10.4 g/dL (14.0-18.0); Hypochromia SLIGHT = 6-15 cells (100X) (0-5/hpf); Lymphocytes 1 % (21-51); MDiff Complete? YES; Mean Corpuscular HGB CONC 32.7 g/dL (32.0-36.0); Mean Corpuscular Hemoglobin 30.1 pg (27.0-31.0); Monocytes 4 % (0-10); Neutrophil 73 % (42-75); Platelet Count 186 thou/uL (130-400); Platelet Morphology Comment Appears Adequate; Reactive Lymphocytes 2 % (0-10); Red Blood Cell (RBC) Count 3.47 mill/uL (4.70-6.10); White Blood Cell (WBC) Count 16.9 thou/uL (4.8-10.8)
[2018-05-01 07:08] LABS: Actual Bicarbonate (HCO3a) 27.4 mEq/L (22-28); Base Excess (BEa) 3.8 mEq/L (-2.0 to +3.0); CO2 Tension 37.7 mmHg (35.0-45.0); Calcium, Ionized 1.06 mmol/L (1.12-1.30); Carboxyhemoglobin (COHb) 0.8 gm% (0.0-3.0); Hemoglobin (Hb) 11.2 g/dL (14.0-18.0); O2 Tension (PaO2) 87.6 mmHg (> 60.0); Potassium - ABG Lab 3.53 mmol/L (3.70-5.30); pH, Arterial 7.48 (7.35-7.45)
[2018-05-01 08:31] LABS: ALV-art Gradient 150.475 (0-20); Puncture Site ALINE
[2018-05-01] MEDS ORDERED: Pantoprazole 40 MG VIAL IVP SCH ×2 (09:00)
[2018-05-01] MEDS: Heparin 5,000 UNITS/ML VIAL SC SCH ×3 (09:01→21:05)
[2018-05-01] MEDS: Pantoprazole 40 MG VIAL IVP SCH ×2 (09:04→21:06)
[2018-05-01] MEDS ORDERED: Potassium Phosphate 30 MMOL in Sodium Chloride 0.9% 500 ML IVPB SCH (10:45)
--- NOTE | 2018-05-01 11:26 | PRG ---
DATE OF SERVICE: 05/01/2018 SUBJECTIVE: Mr. Tsai is an 82-year-old man who is 2 days status post exploratory laparotomy, extensive adhesiolysis, segmental small bowel resection, primary anastomosis. The patient remains on full mechanical ventilator support. Blood pressure is stable now. Urinary output is improving. He requires dopamine at 5 mcg/kg/min to sustain mean arterial pressure of almost 70. The patient is lightly sedated on fentanyl at 25 mcg/hr. With that, he moves all extremities and follows commands. He tolerates trophic feeds at 10 mL/hr. OBJECTIVE: VITAL SIGNS: This morning includes blood pressure 107/54, pulse is 78, respiratory rate is 16, temperature is 99.4 degrees Fahrenheit. Maximum temperature in the last 24 hours, however, is 100.7 degrees Fahrenheit. HEENT: Pupils are equal, round, and reactive to light and accommodation. He has decreased scleral edema. NECK: He has no jugular venous distention noted. HEART: Reveals regular rate and rhythm. No murmurs or gallops auscultated. LUNGS: Clear to auscultation bilaterally. Breathing, regular and nonlabored. ABDOMEN: Soft and moderately distended. Incision is intact clean and dry. Liver and spleen nonpalpable below costal margin. NEUROLOGIC: Reveals no focal deficits present. LABORATORY FINDINGS: Today includes a CBC with 16,900 white blood cells, hemoglobin and hematocrit 10.4 and 31.9 respectively. Platelet count is 186,000. Differential count as follows 73 segmented neutrophils, 20 bands, 1 lymphocyte, and 4 monocytes. Arterial blood gas this morning pH 7.48, pCO2 is 38, PO2 is 88, oxygen saturation 97%, base excess 3.8, ionized calcium is 1.06 and this is on FiO2 of 40%. Metabolic profile; sodium 139, potassium is 3.7, chloride is 104, bicarb is 28, BUN and creatinine 30 and 1.42 respectively which is better than 30 and 1.67 yesterday. Glucose is 146, magnesium is 2.1 and phosphorus is 2.5. IMPRESSIONS: 1. Postoperative day #2 status post exploratory laparotomy with segmental small bowel resection. 2. Resolving acute respiratory failure. 3. Resolving acute septic shock. PLAN: 1. Continue fluid resuscitation. Monitor urinary output and renal function as endpoint of resuscitation. 2. Correct abnormal electrolytes. 3. We will initiate weaning on the mechanical ventilator support and consider extubation once the patient's hemodynamic and neurological status indicates. 4. Acute kidney injury is resolving. No further intervention here warranted. Above findings and plan discussed with the patient's and daughter at bedside. They indicated understanding of information given. I have answered their questions. Total critical care time is 45 minutes. Job ID: [id number]
[2018-05-01 14:21] LABS: #Lymphocytes 0.6 thou/uL (1.20-3.40); #Monocytes 0.7 thou/uL (0.11-0.59); #Neutrophils 17.4 thou/uL (1.40-6.50); %Basophils 0.1 % (0.0-1.0); %Eosinophils 0.1 % (0.0-10.0); %Lymphocytes 3.2 % (21.0-51.0); %Monocytes 3.5 % (0.0-10.0); %Neutrophils 93.2 % (42.0-75.0); Hemoglobin 10.4 g/dL (14.0-18.0); Mean Corpuscular Hemoglobin 29.6 pg (27.0-31.0); Mean Corpuscular Volume 92.7 fL (78.0-98.0); Mean Platelet Volume 7.3 fL (7.4-10.4); Platelet Count 207 thou/uL (130-400); RBC Distribution Width 13.8 % (11.5-14.5); White Blood Cell (WBC) Count 18.7 thou/uL (4.8-10.8)
[2018-05-01 14:27] LABS: INR-International Normal Ratio 1.4; Prothrombin Time 17.5 SEC (12.0-14.7)
[2018-05-01] MEDS: DOPamine 400 MG/D5W 250 ML 250 ML IVPB SCH (15:49)
[2018-05-01] MEDS: Sodium Chloride 0.9% (PF) 10 ML VIAL FS PRN (21:06)
[2018-05-01] MEDS: fentaNYL Citrate/PF 2,000 MCG in Sodium Chloride 0.9% 60 ML IV SCH (22:34)
[2018-05-02] MEDS: Dextrose 5 %-0.45 % NaCl 1,000 ML IV SCH ×2 (02:35→18:32)
[2018-05-02] MEDS: DOPamine 400 MG/D5W 250 ML 250 ML IVPB SCH ×2 (02:45→18:49)
[2018-05-02] MEDS: Piperacillin/Tazobactam 3.375 GM in Sodium Chloride 0.9% 100 ML IVPB SCH ×4 (04:28→21:02)
[2018-05-02 04:57] LABS: Anion Gap 10 mmol/L (10-20); BUN (Urea Nitrogen) 25 mg/dL (8.4-25.7); Calc. Creatinine Clearance 74 mL/min (70-130); Calcium 7.8 mg/dL (7.8-10.44); Carbon Dioxide 27 mmol/L (23-31); Chloride 106 mmol/L (98-107); Estimated GFR-MDRD 64; Glucose 142 mg/dL (83-110); Phosphorus 2.7 mg/dL (2.3-4.7); Potassium 3.8 mmol/L (3.5-5.1); Sodium 139 mmol/L (136-145)
[2018-05-02 05:01] LABS: Band 26 % (5-11); Hemoglobin 9.4 g/dL (14.0-18.0); Lymphocytes 3 % (21-51); MDiff Complete? YES; Mean Corpuscular HGB CONC 33.1 g/dL (32.0-36.0); Mean Corpuscular Hemoglobin 30.5 pg (27.0-31.0); Mean Corpuscular Volume 92.1 fL (78.0-98.0); Mean Platelet Volume 7.4 fL (7.4-10.4); Monocytes 1 % (0-10); Neutrophil 70 % (42-75); Platelet Count 181 thou/uL (130-400); Platelet Morphology Comment Appears Adequate; RBC Distribution Width 13.7 % (11.5-14.5); White Blood Cell (WBC) Count 13.8 thou/uL (4.8-10.8)
[2018-05-02 07:13] LABS: Actual Bicarbonate (HCO3a) 27.2 mEq/L (22-28); Base Excess (BEa) 3.7 mEq/L (-2.0 to +3.0); CO2 Tension 36.7 mmHg (35.0-45.0); Calcium, Ionized 1.06 mmol/L (1.12-1.30); Carboxyhemoglobin (COHb) 0.4 gm% (0.0-3.0); Hemoglobin (Hb) 9.9 g/dL (14.0-18.0); O2 Tension (PaO2) 110.1 mmHg (> 60.0); Potassium - ABG Lab 3.65 mmol/L (3.70-5.30); pH, Arterial 7.49 (7.35-7.45)
[2018-05-02 07:16] LABS: ALV-art Gradient 129.225 (0-20); Puncture Site ALINE
[2018-05-02] MEDS: Pantoprazole 40 MG VIAL IVP SCH ×2 (07:50→20:57)
[2018-05-02] MEDS: Sodium Chloride 0.9% (PF) 10 ML VIAL FS PRN ×2 (07:51→20:57)
[2018-05-02] MEDS: Heparin 5,000 UNITS/ML VIAL SC SCH ×3 (07:51→20:56)
[2018-05-02] MEDS ORDERED: Potassium Phosphate 30 MMOL in Sodium Chloride 0.9% 500 ML IVPB SCH (08:00)
[2018-05-02] MEDS ORDERED: traMADol HCl 50 MG TAB PO PRN (10:59)
[2018-05-02] MEDS: traMADol HCl 50 MG TAB PO PRN (11:24)
[2018-05-02] MEDS: Acetaminophen 1,000 MG in Premix Bag 1 BAG IVPB SCH ×2 (12:42→17:59)
--- NOTE | 2018-05-02 20:57 | PRG ---
DATE OF SERVICE: 05/02/2018 SUBJECTIVE: Mr. Tsai is an 82-year-old man, who is postop day #2, status post exploratory laparotomy, extensive adhesiolysis, segmental small-bowel resection, and primary anastomosis. The patient is on mechanical ventilatory support. He is tolerated ventilator wean. Off sedation. He moves all extremities. Follows commands. Urinary output is adequate. He tolerates trophic tube feeds. He is on dopamine at 5 mcg/kg/minute. OBJECTIVE: VITAL SIGNS: This morning as noted, blood pressure 128/60, pulse 79, respiratory rate is 22, temperature is 99.3 degrees Fahrenheit, maximum temperature in last 24 hours 100.2 degrees Fahrenheit, and oxygen saturation 100% on FiO2 of 40%. HEENT: Pupils are equal, round, and reactive to light bilaterally. NECK: He has no jugular venous distention noted. HEART: Reveals regular rate and rhythm. No murmurs or gallops auscultated. LUNGS: Reveals scattered rhonchi. Breathing, regular and nonlabored. ABDOMEN: Soft and moderately tender to palpation. Incision is intact, clean, and dry. Harsh-Parnell drain returns 440 mL of slightly serosanguineous fluid. NEUROLOGIC: Reveals no focal deficits present. LABORATORY DATA: Laboratory findings today include CBC with 13,800 white blood cells, hemoglobin and hematocrit are 9.4 and 28.5 respectively. Platelet count 181,000. Metabolic profile; sodium 139, potassium is 3.8, chloride is 106, bicarb is 27, BUN is 25, creatinine is 1.10, glucose 142, magnesium 2.0, and phosphorus is 2.7. IMPRESSION: 1. Postop day #3, status post exploratory laparotomy. 2. Resolving acute respiratory failure. 3. Resolved acute kidney injury. 4. Stable acute blood loss anemia. 5. Resolving septic shock. PLAN: 1. The patient was successfully weaned and extubated without incident. 2. We will continue with dopamine infusion and wean as tolerated, so long as the main arterial pressure remains above 60 and the patient achieving adequate urinary output. 3. We will start iron replacement therapy once bowel function returns. 4. We will increase trophic tube feeds to 20 mL/h. Above findings and plan discussed with the patient and his and daughter at bedside. They indicated understanding information given. I have answered their questions Total critical care time is 45 minutes. Job ID: [id number]
[2018-05-03] MEDS: Acetaminophen 1,000 MG in Premix Bag 1 BAG IVPB SCH ×3 (01:25→11:33)
[2018-05-03] MEDS: Dextrose 5 %-0.45 % NaCl 1,000 ML IV SCH ×4 (03:10→22:45)
[2018-05-03] MEDS: Piperacillin/Tazobactam 3.375 GM in Sodium Chloride 0.9% 100 ML IVPB SCH ×4 (05:24→21:49)
[2018-05-03] MEDS ORDERED: Calcium Chloride 1 GM/10 ML Abboject SYRINGE IVP SCH (08:00)
[2018-05-03 08:26] LABS: Hemoglobin 8.6 g/dL (14.0-18.0); Mean Corpuscular HGB CONC 32.6 g/dL (32.0-36.0); Mean Corpuscular Hemoglobin 30.4 pg (27.0-31.0); Mean Corpuscular Volume 93.4 fL (78.0-98.0); Mean Platelet Volume 7.7 fL (7.4-10.4); Platelet Count 198 thou/uL (130-400); RBC Distribution Width 13.6 % (11.5-14.5); Red Blood Cell (RBC) Count 2.83 mill/uL (4.70-6.10); White Blood Cell (WBC) Count 8.8 thou/uL (4.8-10.8)
[2018-05-03 08:43] LABS: Anion Gap 12 mmol/L (10-20); BUN (Urea Nitrogen) 23 mg/dL (8.4-25.7); Calc. Creatinine Clearance 92 mL/min (70-130); Calcium 7.8 mg/dL (7.8-10.44); Carbon Dioxide 24 mmol/L (23-31); Chloride 109 mmol/L (98-107); Estimated GFR-MDRD 82; Glucose 129 mg/dL (83-110); Magnesium 1.9 mg/dL (1.6-2.6); Phosphorus 2.5 mg/dL (2.3-4.7); Potassium 3.8 mmol/L (3.5-5.1); Sodium 141 mmol/L (136-145)
[2018-05-03] MEDS: Pantoprazole 40 MG VIAL IVP SCH ×2 (08:48→20:11)
[2018-05-03] MEDS: Sodium Chloride 0.9% (PF) 10 ML VIAL FS PRN (08:48)
[2018-05-03] MEDS ORDERED: Potassium Phosphate 15 MMOL in Sodium Chloride 0.9% 250 ML 250 ML IVPB SCH (09:00)
[2018-05-03 09:09] LABS: Band 13 % (5-11); Eosinophils 2 % (0-10); Lymphocytes 8 % (21-51); MDiff Complete? YES; Monocytes 6 % (0-10); Neutrophil 71 % (42-75); Platelet Morphology Comment Appears Adequate; Polychromasia SLIGHT = 2-3 cells (100X) (0-2/hpf)
[2018-05-03] MEDS: Heparin 5,000 UNITS/ML VIAL SC SCH ×2 (09:51→20:24)
--- NOTE | 2018-05-03 13:59 | PRG ---
DATE OF SERVICE: 05/03/2018 SUBJECTIVE: Stephen Tsai is doing well today. He is confused. He is in ICU. He does interact, but he is confused. OBJECTIVE: VITAL SIGNS: Heart rate 75, respiratory rate 21, blood pressure 95/56. LUNGS: Clear to auscultation. CARDIAC: Regular rate and rhythm. No murmur or gallop. ABDOMEN: Soft. Bowel sounds present. Nondistended, non-tympanitic. Midline wound taylor intact, wound intact. No evidence of infection. LABORATORY DATA: This morning, his white count is 8 and hemoglobin 8.6. Basic metabolic profile is normal. ASSESSMENT AND PLAN: 1. Improved mental status postoperatively. Continue to observe in ICU. 2. Begin full liquids as tolerated. 3. Acute kidney injury, improved. 4. Stable anemia. No indications for transfusion. 5. Advance diet. Job ID: [id number]
[2018-05-04] MEDS: traMADol HCl 50 MG TAB PO PRN ×2 (00:23→11:03)
[2018-05-04 04:58] LABS: #Lymphocytes 0.4 thou/uL (1.20-3.40); #Monocytes 0.6 thou/uL (0.11-0.59); %Basophils 0.1 % (0.0-1.0); %Eosinophils 0.4 % (0.0-10.0); %Lymphocytes 3.6 % (21.0-51.0); %Monocytes 5.6 % (0.0-10.0); %Neutrophils 90.3 % (42.0-75.0); Hemoglobin 8.9 g/dL (14.0-18.0); Mean Corpuscular HGB CONC 31.3 g/dL (32.0-36.0); Mean Corpuscular Hemoglobin 29.4 pg (27.0-31.0); Mean Corpuscular Volume 93.7 fL (78.0-98.0); Mean Platelet Volume 7.3 fL (7.4-10.4); Platelet Count 250 thou/uL (130-400); RBC Distribution Width 13.7 % (11.5-14.5); Red Blood Cell (RBC) Count 3.03 mill/uL (4.70-6.10)
[2018-05-04] MEDS: Piperacillin/Tazobactam 3.375 GM in Sodium Chloride 0.9% 100 ML IVPB SCH ×4 (05:01→21:28)
[2018-05-04] MEDS: Dextrose 5 %-0.45 % NaCl 1,000 ML IV SCH ×2 (05:01→11:51)
[2018-05-04 05:22] LABS: Anion Gap 9 mmol/L (10-20); BUN (Urea Nitrogen) 22 mg/dL (8.4-25.7); Calc. Creatinine Clearance 92 mL/min (70-130); Calcium 8.4 mg/dL (7.8-10.44); Carbon Dioxide 24 mmol/L (23-31); Chloride 108 mmol/L (98-107); Estimated GFR-MDRD 82; Glucose 146 mg/dL (83-110); Magnesium 1.9 mg/dL (1.6-2.6); Phosphorus 2.1 mg/dL (2.3-4.7); Potassium 3.5 mmol/L (3.5-5.1); Sodium 137 mmol/L (136-145)
[2018-05-04] MEDS ORDERED: Magnesium 2 GM/50 ML 2 GM in Premix Bag 1 BAG IVPB SCH (08:00)
[2018-05-04] MEDS ORDERED: Potassium Phosphate 30 MMOL in Sodium Chloride 0.9% 500 ML IVPB SCH (08:00)
[2018-05-04] MEDS ORDERED: Potassium Phosphate 30 MMOL, Magnesium Sulfate 2 GM in Sodium Chloride 0.9% 250 ML 250 ML IVPB SCH (08:15)
[2018-05-04] MEDS ORDERED: Furosemide 40 MG/4 ML VIAL SLOW IVP SCH (08:30)
[2018-05-04] MEDS: Heparin 5,000 UNITS/ML VIAL SC SCH ×2 (09:01→21:27)
[2018-05-04] MEDS: Pantoprazole 40 MG VIAL IVP SCH ×2 (09:02→21:28)
--- NOTE | 2018-05-04 12:03 | ULT ---
ULTRASOUND RENAL BILATERAL STANDARD: Date: 05/04/18 HISTORY: Acute renal failure. COMPARISON: None. FINDINGS: Urinary bladder is decompressed with a Caruso catheter. Left kidney is not seen. Right kidney measures 12.2 x 5.7 x 5.3 cm with an exophytic cyst. IMPRESSION: 1. No evidence for obstructive uropathy on the right. Left kidney not seen. 2. Decompressed urinary bladder with a Caruso catheter. POS: [facility]
--- NOTE | 2018-05-04 14:19 | PRG ---
DATE OF SERVICE: 05/04/2018 SUBJECTIVE: Mr. Tsai is an 82-year-old man, who is postoperative day #5 status post exploratory laparotomy, extensive adhesiolysis, segmental small bowel resection with primary anastomosis. The patient was successfully extubated 2 days previously. He has been off dopamine infusion over the last 24 hours. Blood pressure is stable. The patient is awake today, but confused, though interactive. He does follow commands. [place] Coma Scale is noted at E4, V4, M6. Tube feeds were placed on hold as the patient was nauseated earlier today. Urinary output has been adequate. OBJECTIVE: VITAL SIGNS: Today include blood pressure 125/80, pulse is 74, respiratory rate is 26, maximum temperature in the last 24 hours is 98.7 degrees Fahrenheit, oxygen saturation is 96% on 4 L by nasal cannula oxygen. HEENT: Reveals pupils are equal, round, and reactive to light and accommodation. NECK: He does have jugular venous distention noted. HEART: Reveals irregular rate and irregular rhythm. LUNGS: Reveal bibasilar rhonchi. Breathing, regular and nonlabored. He has few expiratory wheezes present. ABDOMEN: Soft and distended. Incision is intact with incisional tenderness to palpation. Harsh-Parnell drain returns 170 mL of serous fluid over the last 24 hours. He has bowel sounds in all 4 quadrants. NEUROLOGIC: Reveals no focal deficits present. LABORATORY FINDINGS: Today include a CBC with 10,000 white blood cells, hemoglobin and hematocrit 8.9 and 28.4 respectively, platelet count is 250,000. Metabolic profile; sodium 137, potassium is 3.5, chloride is 108, bicarb is 24, BUN 22, creatinine 0.89, glucose is 146, magnesium is 1.9, phosphorus is 2.1. BNP is 338.5. Troponin I is 0.012. IMPRESSION: 1. Postoperative day #5 status post exploratory laparotomy, extensive adhesiolysis, and segmental small bowel resection with primary anastomosis. 2. Acute metabolic encephalopathy. 3. Acute hypokalemia. 4. Acute hypophosphatemia. 5. Acute hypomagnesemia. 6. Acute pulmonary insufficiency. PLAN: 1. Correct abnormal electrolytes. 2. Increase activity per Physical and Occupational Therapy. 3. Optimize pulmonary toilet in addition to bronchodilator therapy. 4. We will decrease IV fluid at this time and obtain 2D echocardiography to evaluate cardiac chamber size, wall motion, and function. 5. We will ask Cardiology to evaluate the patient with regard to the recent runs of ventricular tachycardia on the monitor. 6. Above findings and plan have been discussed with the patient's family. 7. We anticipate the patient will be transferred ultimately to inpatient rehabilitation once he becomes hemodynamically and neurologically stable. Job ID: [id number] MTDD
[2018-05-04 14:52] LABS: Anion Gap 14 mmol/L (10-20); BUN (Urea Nitrogen) 27 mg/dL (8.4-25.7); Calc. Creatinine Clearance 73 mL/min (70-130); Calcium 8.6 mg/dL (7.8-10.44); Carbon Dioxide 23 mmol/L (23-31); Chloride 109 mmol/L (98-107); Estimated GFR-MDRD 64; Glucose 136 mg/dL (83-110); Magnesium 2.3 mg/dL (1.6-2.6); Phosphorus 3.9 mg/dL (2.3-4.7); Potassium 4.1 mmol/L (3.5-5.1); Sodium 142 mmol/L (136-145)
--- NOTE | 2018-05-04 14:55 | CON ---
DATE OF CONSULTATION: 05/04/2018 [employer]IMARY [employer] AND TRACK AND FIELD COACH: Dr. Jonathan Box. HISTORY OF PRESENT ILLNESS: Mr. Tsai is a pleasant 82-year-old white gentleman, who comes to the hospital for abdominal pain. He was diagnosed with a closed-loop small bowel obstruction and acute peritonitis. Secondary to this, he was taken to the OR on the 29 of April for this and had an exploratory laparotomy with extensive adhesiolysis, segmental small-bowel resection with primary anastomosis and placement of feeding nasojejunal tube. He did well postoperatively. He has a pacemaker, unknown reasons for the pacemaker, but he has had history of atrial fibrillation, status post ablation. He may have had AVJ ablation. He has been in a postoperative state, doing well and started having several runs of a wide-complex irregular rhythm which was thought to be ventricular tachycardia, so Cardiology was consulted for this. On my evaluation, Mr. Tsai denies any chest pain, tightness, or pressure; only abdominal pain, which is much better since surgery. He is somewhat sedated and difficult to arouse but when arouse, he is able to converse. He has no other issues at that time. PAST MEDICAL HISTORY: 1. Atrial fibrillation, status post ablation from what I can tell. 2. Pacemaker placement. 3. Coronary artery disease. 4. Chronic atrial fibrillation. 5. Colon cancer. 6. Hypothyroidism. 7. BPH. 8. Gout. PAST SURGICAL HISTORY: 1. Partial colectomy. 2. Tonsillectomy. 3. Adenoidectomy. 4. Bilateral inguinal herniorrhaphies. 5. AV guicho ablation. 6. Coronary angiography. 7. Pacemaker implantation. 8. Upper and lower endoscopies. SOCIAL HISTORY: No alcohol, tobacco, or drugs. FAMILY HISTORY: Noncontributory. OUTPATIENT MEDICATIONS: Include, 1. Pradaxa 150 mg b.i.d. 2. Allopurinol 300 mg a day. 3. Avodart. 4. Aspirin 81 a day. 5. Levothyroxine 150 mcg a day. 6. Potassium chloride 20 mEq a day. ALLERGIES: NO KNOWN DRUG ALLERGIES. REVIEW OF SYSTEMS: Unobtainable as the patient is mostly sedated. PHYSICAL EXAMINATION: VITAL SIGNS: Temperature 98.4. His last fever was on the at 100.2. He had up to 100.9 on the 9th. Pulse 75, respiratory rate 30, saturating 95% on 1 L, blood pressure 135/78. GENERAL: Sedated, but easily arousable. HEENT: Normocephalic and atraumatic. NECK: Supple. LUNGS: Have mild crackles at bases. CARDIOVASCULAR: S1 and S2. No S3 or S4. There is a grade 2/6 systolic murmur at right upper sternal border. ABDOMEN: Soft. Positive bowel sounds. EXTREMITIES: Trace edema. SKIN: Warm and dry. LABORATORY DATA AND DIAGNOSTIC STUDIES: Laboratory work was reviewed. CBC with a white count of 10, hemoglobin 8.9, hematocrit 28, platelet count 250. Coags were reviewed. ABG was reviewed. Chemistry was reviewed. BNP was 338. Troponin was negative x2; one on the , one on the . Normal electrolytes. Glucose was 146. Lactic acid 1.9, this was on the 01 of May. Magnesium is normal. Phosphorus, a little bit on the low side. Renal ultrasound was reviewed. Chest x-ray showed dual chamber pacemaker in place with no evident change. ASSESSMENT: 1. Wide-complex tachycardia. 2. History of chronic atrial fibrillation. 3. History of AVJ ablation. 4. Pacemaker placement. PLAN: 1. We will get an interrogation of the device to see if this is in fact VT at times. It looks on the tracing that it could be artifact. At other times, it could also seem like it is atrial fibrillation. However, if he has had an AVJ ablation, this is less likely. Hopefully, the interrogation will give us some light to this matter. 2. Given his severe illness and the possibility of this being VT, some of it looks polymorphic at times, on the side of caution, we will start on amiodarone drip. We will get an echocardiogram. 3. We will follow. 4. Further recommendations per results of interrogation. Job ID: [id number]
[2018-05-04] MEDS: Amiodarone 450 MG in Dextrose 5% in Water 250 ML IVPB SCH (15:01)
--- NOTE | 2018-05-04 15:39 | RAD ---
ABDOMEN TWO VIEW WITH ONE VIEW CHEST: 05/04/18 HISTORY: Respiratory failure. Abdominal distention. COMPARISON: CT of 04/29/18. FINDINGS: The pulmonary arteries are markedly enlarged. Layering left effusion. Heart size is enlarged. Likely some free intraperitoneal gas. Dobhoff tube tip at the level of the third portion of the duode num. There is distended air filled loops of bowel in the upper abdomen. IMPRESSION: 1. Dobhoff tube tip at the level of the junction of the third and fourth portions of the duodenu m. 2. Lowe volume free intraperitoneal gas with left lower quadrant and multiple surgical clips. 3. Postsurgical ileus. POS: [facility]
[2018-05-04] MEDS ORDERED: Senokot 8.6 MG TAB PO PRN (16:09)
[2018-05-05] MEDS: Amiodarone 450 MG in Dextrose 5% in Water 250 ML IVPB SCH ×2 (00:30→17:39)
[2018-05-05 04:20] LABS: Band 3 % (5-11); Hemoglobin 10.2 g/dL (14.0-18.0); Hypochromia SLIGHT = 6-15 cells (100X) (0-5/hpf); Lymphocytes 18 % (21-51); MDiff Complete? YES; Mean Corpuscular HGB CONC 31.8 g/dL (32.0-36.0); Mean Corpuscular Hemoglobin 29.4 pg (27.0-31.0); Mean Corpuscular Volume 92.5 fL (78.0-98.0); Mean Platelet Volume 7.7 fL (7.4-10.4); Neutrophil 79 % (42-75); Platelet Count 359 thou/uL (130-400); Platelet Morphology Comment Appears Adequate; Red Blood Cell (RBC) Count 3.47 mill/uL (4.70-6.10); White Blood Cell (WBC) Count 4.7 thou/uL (4.8-10.8)
[2018-05-05] MEDS: Piperacillin/Tazobactam 3.375 GM in Sodium Chloride 0.9% 100 ML IVPB SCH ×4 (04:28→21:27)
[2018-05-05 04:31] LABS: Anion Gap 14 mmol/L (10-20); BUN (Urea Nitrogen) 45 mg/dL (8.4-25.7); Calc. Creatinine Clearance 48 mL/min (70-130); Calcium 8.3 mg/dL (7.8-10.44); Carbon Dioxide 24 mmol/L (23-31); Chloride 109 mmol/L (98-107); Estimated GFR-MDRD 39; Glucose 122 mg/dL (83-110); Magnesium 2.2 mg/dL (1.6-2.6); Phosphorus 3.7 mg/dL (2.3-4.7); Sodium 143 mmol/L (136-145)
[2018-05-05] MEDS ORDERED: Acetaminophen 1,000 MG in Premix Bag 1 BAG IVPB SCH (06:45)
[2018-05-05 07:32] LABS: Bilirubin Negative (Negative); Blood, Urine Large (Negative); Leukocyte Moderate (Negative); pH, Urine 6.5 (5.0-9.0)
[2018-05-05 07:35] LABS: Clarity Turbid (Clear); Glucose, Urine (Dipstick) Unable to Interpret mg/dL (Negative); Nitrite Unable to Interpret (Negative); Protein, Urine (Dipstick) Unable to Interpret mg/dL (Neg-Trace)
[2018-05-05 07:36] LABS: RBC/HPF GREATER THAN 50-TNTC HPF (0-3)
[2018-05-05 07:37] LABS: Hyaline Casts/LPF 0-3 HYALINE CAST LPF (0-3 Hyaline)
[2018-05-05 07:39] LABS: Bacteria/HPF None Seen HPF (None Seen)
[2018-05-05] MEDS: Lactated Ringer's 1,000 ML IV SCH ×2 (08:24→17:39)
[2018-05-05 08:25] LABS: ALT (SGPT) 16 U/L (8-55); AST (SGOT) 24 U/L (5-34); Albumin 2.5 g/dL (3.4-4.8); Alkaline Phosphatase 122 U/L (40-150); Bilirubin, Direct 0.6 mg/dL (0.1-0.3)
--- NOTE | 2018-05-05 08:58 | RAD ---
FRONTAL VIEW CHEST: COMPARISON: Reference is made to a radiograph of previous day. INDICATION: Fever. FINDINGS: There is enlargement of the cardiac silhouette with obscuration of the left lung base. There is a garcia zy density at the inferior right chest. Enteric catheter is again seen traversing the chest and the left upper abdomen. There is a right subclavian venous catheter. Air density at the partially image d left upper abdomen is grossly stable to prior exam. IMPRESSION: 1. Persistent bibasilar densities 2. Air density at the left upper abdomen incompletely assessed is grossly stable to prior exam. POS: [facility]
[2018-05-05] MEDS: Heparin 5,000 UNITS/ML VIAL SC SCH (09:00)
[2018-05-05 09:30] LABS: Actual Bicarbonate (HCO3a) 22.4 mEq/L (22-28); Base Excess (BEa) -0.5 mEq/L (-2.0 to +3.0); Calcium, Ionized 1.04 mmol/L (1.12-1.30); Carboxyhemoglobin (COHb) 0.6 gm% (0.0-3.0); Hemoglobin (Hb) 11.1 g/dL (14.0-18.0); O2 Tension (PaO2) 70.9 mmHg (> 60.0); Potassium - ABG Lab 3.78 mmol/L (3.70-5.30); pH, Arterial 7.48 (7.35-7.45)
[2018-05-05] MEDS: Pantoprazole 40 MG VIAL IVP SCH ×2 (09:35→20:31)
[2018-05-05] MEDS: Polyethylene Glycol 3350 17 GM Packet PER TUBE SCH (09:35)
[2018-05-05] MEDS ORDERED: Norepinephrine 8 MG/0.9% NS 250 ML ONE ×2 (09:47→11:35)
[2018-05-05] MEDS ORDERED: Fentanyl BOLUS 250 ML IVPB PRN ×2 (10:06→15:39)
[2018-05-05] MEDS ORDERED: DISCONTINUE PREVIOUS NARCOTIC PAIN MEDICATIONS AND BENZODIAZEPINES FS SCH ×2 (10:06→15:39)
[2018-05-05] MEDS ORDERED: Propofol 1,000 MG/100 ML VIAL IV PRN ×2 (10:06→15:39)
[2018-05-05] MEDS ORDERED: Lorazepam 2 MG/ML VIAL SLOW IVP PRN ×2 (10:06→15:39)
[2018-05-05] MEDS ORDERED: Morphine 2 MG/ML SYRINGE SLOW IVP PRN ×2 (10:06→15:39)
[2018-05-05] MEDS ORDERED: Propofol BOLUS 1,000 MG/100 ML VIAL IV PRN ×2 (10:06→15:39)
[2018-05-05 10:31] LABS: Puncture Site RRA
[2018-05-05] MEDS: fentaNYL Citrate/PF 2,000 MCG in Sodium Chloride 0.9% 60 ML IV SCH (10:48)
[2018-05-05 11:16] LABS: Actual Bicarbonate (HCO3a) 20.5 mEq/L (22-28); Base Excess (BEa) -3.2 mEq/L (-2.0 to +3.0); CO2 Tension 32.1 mmHg (35.0-45.0); Calcium, Ionized 1.07 mmol/L (1.12-1.30); Carboxyhemoglobin (COHb) 0.6 gm% (0.0-3.0); Hemoglobin (Hb) 10.2 g/dL (14.0-18.0); O2 Tension (PaO2) 66.7 mmHg (> 60.0); Potassium - ABG Lab 3.87 mmol/L (3.70-5.30); pH, Arterial 7.42 (7.35-7.45)
[2018-05-05] MEDS ORDERED: Iopamidol 370 76% 50 ML VIAL FS ONE (11:26)
[2018-05-05] MEDS ORDERED: Metoprolol Tartrate 5 MG/5 ML VIAL ONE (11:27)
[2018-05-05] MEDS ORDERED: Midazolam HCl 2 mg/2 ml Vial ONE ×3 (11:29→14:41)
[2018-05-05] MEDS ORDERED: Fentanyl 250 MCG/5 ML VIAL ONE (11:35)
[2018-05-05] MEDS ORDERED: Sodium Bicarb 50 MEQ/50 ML Abboject 8.4% SYRINGE ONE (11:35)
[2018-05-05] MEDS ORDERED: Calcium Chloride 1 GM/10 ML Abboject SYRINGE ONE ×2 (11:35→13:25)
[2018-05-05 11:36] LABS: ALV-art Gradient 320.975 (0-20); Puncture Site RRA
--- NOTE | 2018-05-05 11:43 | CT ---
ABDOMEN AND PELVIS WITHOUT IV CONTRAST: DATE: 05/05/2018. HISTORY: Postop fever. Recent small bowel surgery secondary to internal hernia and closed-loop obstruction. COMPARISON: Studies on 04/29/2018. FINDINGS: There are small bilateral pleural effusions with bibasilar areas of consolidation which may be relate d to atelectasis, but bibasilar pneumonia should be considered. The heart is enlarged. Cardiac pacemaking leads are again noted in place. There is a Dobbhoff feeding tube noted in place with the tip in the third portion of the duodenum. T he stomach is distended with contrast. There are gas densities seen in the nondependent portion of t he fundus of the stomach, and gas within the bowel wall involving the fundus of the stomach is suspec ramin. There are foci of gas seen within the liver with gas in the left hepatic lobe appearing to be within the region of the left portal vein and findings are worrisome for portal venous gas. No history of r ecent ERCP or manipulation of the common bile duct is provided. The gallbladder is mildly distended measuring 13 cm in length and several gallbladder calculi are pre sent in the gallbladder lumen. The heterogeneous right adrenal lesion is again identified. A subcentimeter too small to characterize hypodense lesion is again seen in the superior pole of the right kidney. The spleen, pancreas, left adrenal gland, and left kidney demonstrate a grossly normal nonenhanced CT appearance. Postsurgical changes of the small bowel are noted within the left upper quadrant left mid abdomen wit h suture material present. There is dilatation of the loop of bowel in the region of the anastomosis. No bowel wall thickening is present and no definite gas is seen within the bowel wall of loops of s mall bowel in the region of postsurgical change. There are dilated loops of small bowel measuring up to 4.3 cm. Findings could be related to ileus given recent postsurgical changes. There is no bowel wall thickening present. A small amount of free fluid is seen adjacent to the liver as well as in each paracolic gutter. Smal l foci of gas are seen within the anterior aspect of the right upper quadrant with a suggestion of pu nctate foci of gas adjacent to the region of postsurgical change involving loops of small bowel. There is a drainage catheter entering via the anterior left abdomen with the tip seen in the midline of the upper pelvis. Postsurgical changes of the rectosigmoid junction are noted. There is an increased density mass-like structure within the right anterolateral lower pelvis measuri ng 6.7 cm x 4.1 cm which was not present on the prior study and likely represents a hematoma. There is increased density material extending into the right inguinal canal also likely related to hemorrha ge and right inguinal hernia. A Caruso catheter is present in the urinary bladder which is decompressed. There is increased density seen within the urinary bladder which could be related to hemorrhage. Midline postsurgical changes are present. Subcutaneous edema is seen in the gluteal regions bilatera lly as well as involving the lateral aspect of the abdomen bilaterally. IMPRESSION: 1. Foci of gas within the liver related to gas within the portal vein which can be seen with ischemi c bowel. No definitive gas is seen within the wall of loops of small bowel, but there is gas within the nondependent portion of the fundus of the stomach which may be related to gas within the bowel wa ll of the fundus of the stomach. The stomach is also distended with contrast and gas. 2. Dilated loops of small bowel with postsurgical change of the small bowel. Dilated loops could be related to ileus given postoperative changes, although developing partial small bowel obstruction is a possibility. 3. Bibasilar areas of consolidation which could be related to atelectasis, but bibasilar pneumonia s hould be considered. 4. Small bilateral pleural effusions. 5. Cardiomegaly. 6. Cholelithiasis with distention of the gallbladder. 7. A small amount of free fluid in the abdomen with foci of free intraperitoneal gas also present. 8. Hematoma in the right anterior lower pelvis. There is also hemorrhage extending into the right i nguinal canal incompletely visualized in the most caudal extent. 9. Caruso catheter in the urinary bladder. There is increased density material in the urinary bladde r which may be related to hemorrhage within the urinary bladder. However, correlation for hematuria is suggested. 10. Postsurgical changes rectosigmoid junction. 11. Subcutaneous edema. 12. Stable heterogeneous right adrenal lesion. 13. Above findings were discussed with Dr. Che on 05/05/2018 at 1056 hours involving gas within the portal veins and suggestion of pneumatosis involving the fundus of the stomach. Bowel ischemia canno t be excluded given the portal venous gas. CODE CR POS: [facility]
[2018-05-05] MEDS ORDERED: Lidocaine 2 gm/D5W 500 ml 0 ML ONE (11:45)
[2018-05-05 12:01] LABS: INR-International Normal Ratio 1.2; PTT 31.8 SEC (22.9-36.1); Prothrombin Time 15.4 SEC (12.0-14.7)
--- NOTE | 2018-05-05 12:11 | PRG ---
DATE OF SERVICE: 05/05/2018 SUBJECTIVE: Mr. Tsai is an 82-year-old man, who is postoperative day #6 status post exploratory laparotomy, segmental small bowel resection for acute closed- loop small-bowel obstruction. The patient was successfully extubated 2 days ago. Overnight, he has become progressively confused with oliguria. His abdomen has been markedly distended. He is having abdominal pain. OBJECTIVE: VITAL SIGNS: This morning include blood pressure 116/59, pulse is 78 and irregular, respiratory rate is 24, temperature is 102.2 degrees Fahrenheit, oxygen saturation is 96% on FiO2 100%. He was re-intubated this morning for progressive respiratory difficulties. HEENT: Pupils are equal, round, reactive to light bilaterally. HEART: Reveals irregular rate and irregular rhythm. LUNGS: Reveal bibasilar rhonchi. Breathing, regular and nonlabored. ABDOMEN: Soft, markedly distended, and tender to palpation. Incision is otherwise intact. He has gross rebound tenderness present. EXTREMITIES: Reveal 2+ radial and pedal pulses bilaterally. No ankle edema is present. NEUROLOGIC: Reveals no focal deficits present. LABORATORY FINDINGS: Today include a CBC with 4007 white blood cells, hemoglobin and hematocrit are 10.2 and 32.1 respectively, platelet count is 359,000. Metabolic profile; sodium 143, potassium is 4.0, chloride is 109, bicarb is 24, BUN is 45, creatinine is elevated now at 1.69, glucose is 122, magnesium 2.2, phosphorus 3.7. CT scan of the abdomen and pelvis is remarkable for scant pneumoperitoneum with small amount of free fluid in right upper quadrant. There is also portal venous gas, which is new. Chest x-ray as well as the evaluation of the CT scan of the abdomen and pelvis reveal bilateral lower lobe pulmonary consolidation. No pneumoperitoneum is present. IMPRESSIONS: 1. Postop day #6 status post exploratory laparotomy with segmental small bowel resection for closed-loop small-bowel obstruction. 2. Suspected acute ischemic bowel necrosis. 3. Acute hypoxemic respiratory failure. 4. Acute kidney injury. PLAN: Bronchoscopy to exclude acute pneumonia. This will be followed by exploratory laparotomy and possible bowel resection. Above findings and plan discussed with the patient's family at bedside. They indicated understanding of information given. I have answered their questions. Total Critical Care time : 45 minutes Job ID: [id number] [facility]
--- NOTE | 2018-05-05 12:23 | OP ---
DATE OF PROCEDURE: 05/05/2018 PREOPERATIVE DIAGNOSES: 1. Acute respiratory failure. 2. Suspected bilateral pneumonia. POSTOPERATIVE DIAGNOSES: 1. Acute respiratory failure. 2. Suspected bilateral pneumonia. PROCEDURES PERFORMED: Fiberoptic bronchoscopy with bronchoalveolar lavage. INDICATIONS FOR PROCEDURE: An 82-year-old man, postop day #6 status post exploratory laparotomy with segmental small-bowel resection for closed-loop small-bowel obstruction. The patient developed worsening hypoxemic respiratory insufficiency this morning. He was intubated for acute hypoxemic respiratory failure following a CT scan of the abdomen and pelvis, which reveals bilateral pulmonary consolidation suspicious for pneumonia. Decision was made to perform a bronchoscopy for both diagnostic and therapeutic purposes. Findings are consistent with thin pulmonary secretions. No gross purulence in the airway to suggest pneumonic process. DESCRIPTION OF PROCEDURE: Informed consent was obtained from the patient's at bedside. The patient was placed in supine position. He is on full mechanical ventilator support, FiO2 at 100%. He was given fentanyl and midazolam for comfort. A fiberoptic bronchoscope was introduced through the previous endotracheal tube and advanced to visualize the tera. Scope was advanced first to the left upper and left lower lobes, thin secretions encountered in the airways. No gross purulence or mucus plugs noted. Next, the scope was withdrawn, advanced to the right upper, bronchus intermedius, and finally right lower lobe. Again, thin secretions encountered in airway. No gross purulence or mucus plugs noted. The patient tolerated the procedure without any apparent complication and remains hemodynamically stable following completion of the procedure. FINAL DIAGNOSIS: Acute noncardiogenic pulmonary edema. No evidence of pneumonia. Job ID: [id number]
[2018-05-05] MEDS ORDERED: PHENYLEPHRINE-NS 100 MCG/ML 10 ML SYRINGE ONE (13:25)
[2018-05-05] MEDS ORDERED: Rocuronium Bromide 10 MG/ML (10ML VIAL) ONE (13:25)
[2018-05-05] MEDS ORDERED: Sodium Bicarb 50 MEQ/50 ML VIAL ONE (13:25)
[2018-05-05] MEDS ORDERED: ePHEDrine 50 MG/ML VIAL ONE (13:25)
[2018-05-05] MEDS ORDERED: Ventilator Sedation Protocol 1 EACH FS SCH (15:15)
[2018-05-05] MEDS ORDERED: fentaNYL Citrate/PF 2,000 MCG in Sodium Chloride 0.9% 60 ML IV SCH (15:39)
[2018-05-05] MEDS: DOPamine 400 MG/D5W 250 ML 250 ML IVPB SCH (15:47)
--- NOTE | 2018-05-05 17:20 | PDOC.CTH ---
Cardiology Progress Note - Subjective Heavy work of breathing. - Objective Vital Signs Temp Pulse Resp BP Pulse Ox 05/05/18 16:00 101.1 F H 17 05/05/18 15:03 16 05/05/18 15:00 73 89/49 L 05/05/18 12:00 101.3 F H 29 H 97 05/05/18 10:57 78 116/59 L 05/05/18 10:00 23 H 05/05/18 07:26 97 05/05/18 07:20 74 27 H 92 L 05/05/18 07:18 94 L 05/05/18 07:00 102.2 F H 05/05/18 06:32 101.9 F H Admit Weight 219 lb Weight 219 lb 5.759 oz 05/04/18 05/05/18 05/06/18 06:59 06:59 06:59 Intake Total 6009 1751 100 Output Total 1615 1390 225 Balance 4394 361 -125 - Physical Examination General/Neuro: other: (mod to sev resp distress) Neck: carotid US brisk Lungs: other: (Laboured respirations. Coarse breath sounds. ) Heart: other: (Irreg) Abdomen: NT/ND Extremities: + edema B (1+) - Telemetry Telemetry Rhythm: Underl Afib, V paced - Labs Result Diagrams: 05/05/18 03:40 05/05/18 03:40 Troponin/CKMB Troponin I 0.012 ng/mL (< 0.028) 05/04/18 04:50 - Assessment/Plan 1. Acute hypoxic respiratory insufficiency 2. Underlying afib. 3. Wide complex tachycardia. 4. Bowel obstruction. 5. 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 S/P AVJ ablation. PLAN: - Continue Amiodarone drip. - Supportive care.
--- NOTE | 2018-05-05 19:01 | CON ---
DATE OF CONSULTATION: 05/05/2018 HISTORY OF PRESENT ILLNESS: This is an 82-year-old white male I think I have seen him in my office before, although I cannot recall why we have seen him before, but I will check that as I go to my office later today. He was admitted here a few days ago and has started a bit of a rough course currently. When he presented on the , so that will be 6 days ago, he underwent an exploratory laparotomy, lysis of adhesions, and small bowel resection because of acute closed-loop small-bowel obstruction and peritonitis secondary to that. There is apparently some strangulation of the proximal ileum noted. He got sick again. It looks like from his vital sign standpoint, collected maybe yesterday afternoon, he started having fevers up to over 102.0. He also had developed some gross hematuria. He was still febrile this morning. Repeat CAT scan was done and his kidneys looked unobstructed and I do not see any obvious evidence of any stones in the ureters. He has a very large prostate and indwelling Caruso balloon was right at the level of the prostatic urethra. He was found to have on that scan some gas in his portal system, which was concerning and some clot in the bladder. MEDICAL HISTORY: He has coronary artery disease, atrial fibrillation. He has had pulmonary ablations. He has had history colon cancer, low thyroid, gout, lower urinary tract symptoms. SURGICAL HISTORY: Partial colectomy, inguinal hernia repairs, ablation, coronary angiography, pacemaker placement. ROUTINE MEDICINES: Include: 1. Pradaxa. 2. Allopurinol. 3. Avodart. 4. Aspirin. 5. Thyroid. 6. Potassium replacement. ALLERGIES: NO KNOWN DRUG ALLERGIES. PHYSICAL EXAMINATION: Hs abdomen is distended and tender. His bladder is not distended. His penis is circumcised without lesions. The Caruso catheter is hanging out a significant amount and wondered if this was gotten actually pulled in the prostatic urethra. It is draining of maroon urine. The testicles descended without mass or tenderness. Rectal exam was not done. I removed his indwelling Caruso, sterilely prepped him with Betadine. I used 2% xylocaine jelly for topical anesthesia and placed a 22-[place] [address] with 20 mL in the balloon. It is in good placement. I irrigated out a fair amount of clot and looks a lot clear currently. We plugged the irrigation port, we may need to start CBI when we get back from the OR. He is going acutely to the OR now for re-exploration by Dr. Che. I will follow with you. I think a urine culture was sent today, but I doubt that he has a urinary tract infection. I think this may be just hematuria, probably from the catheter, possibly catheter being pulled back into the prostate and being on some subcu heparin. I will follow along with you. Job ID: [id number]
--- NOTE | 2018-05-05 20:33 | CON ---
DATE OF CONSULTATION: 05/05/2018 HISTORY OF PRESENT ILLNESS: This is an 82-year-old white male I saw earlier today in the ICU because of gross hematuria and to place the large caliber Caruso catheter and irrigated out a number of clots. He went to the OR because of an acute abdomen and Dr. Che has explored him and it was found that he has had an area of ischemic necrosis and that procedure has been finished. He was concerned because he could not feel the Caruso catheter balloon in the bladder. Also, he was concerned as the right side of the rectus space had been entered and he did not recall ever dissecting that out. I think there was a concern for possible bladder injury or bladder leak. He did state that when he opened him up, he did not find anything that would suggest a bladder leak. There was no significant amount of increased abdominal fluid except for a little bit of fluid up behind the liver. I went ahead and through his indwelling Caruso catheter, filled him with 240 mL of sterile water. The bladder tensed up nicely and there was no evidence of leak at that time, then keeping the bladder distended and gloving and gowning found nothing to suggest a leakage of the bladder and looking at the lateral aspect of the wall of the urinary bladder, I did not see anything to suggest any injury there, albeit this space had been opened. I could not see the ureter. I think the ureter was still retroperitonealized. At this point, it was felt there was no problem with the placement of Caruso catheter, it seemed to be in a good position. It was draining well when we disconnected it and placed it back to bag drainage that decompressed, urine is still somewhat bloody and I think this is probably just related to a very large prostate gland as there was nothing to suggest any other abnormality on his CT scans, which he has now had, I think three of them since he was admitted a few days ago. I would expect that this is hematuria, he clearly may need to be started on some continuous bladder irrigation. Job ID: [id number]
--- NOTE | 2018-05-05 20:51 | OP ---
DATE OF PROCEDURE: 05/05/2018 PREOPERATIVE DIAGNOSES: 1. Acute peritonitis. 2. Pneumoperitoneum. 3. Status post exploratory laparotomy, segmental small-bowel resection with primary anastomosis. POSTOPERATIVE DIAGNOSES: 1. Acute peritonitis. 2. Pneumoperitoneum. 3. Status post exploratory laparotomy, segmental small-bowel resection with primary anastomosis. 4. Ischemic perforation of small bowel x2. 5. Fecal peritonitis. PROCEDURES PERFORMED: 1. Exploratory laparotomy. 2. Enterorrhaphy x3. 3. Abdominal washout. 4. Fascial closure with temporary closure of the skin with wound VAC. ANESTHESIA: General endotracheal. ESTIMATED BLOOD LOSS: 100 mL. FLUIDS GIVEN: 250 mL, 5% albumin and 1500 mL crystalloids. COUNTS: Sponge and instrument counts were verified as correct x2. COMPLICATIONS: None apparent at the time of operation. INDICATIONS FOR OPERATION: This is an 82-year-old man, who is approximately 1 week status post exploratory laparotomy, segmental small-bowel resection for closed-loop small bowel obstruction. The patient developed fever with progressive abdominal distention and pain over the last 24 hours. This was associated with impending renal failure. Noncontrast CT scan of the abdomen and pelvis was obtained today, which revealed pneumoperitoneum. The patient was brought to the operating room for exploration. Findings are consistent with ischemic perforation of jejunum and distal ileum. There was also extensive amount of contamination with succus entericus associated with the perforations. DESCRIPTION OF PROCEDURE: Informed consent obtained from the patient's . The patient was brought to the operating room and placed in supine position. Following general anesthesia, previous Caruso catheter was placed to bedside drain. Orogastric tube was inserted and placed to wall suction. Abdomen was sterilely prepped and draped in usual fashion. Skin taylor were removed, and fascial sutures were excised using scissors. Peritoneal cavity was then entered. Initial exploration reveals large amount of succus entericus, which were evacuated with suction. Small bowel was then run from ligament of Treitz down to terminal ileum. The previous enteroenterostomy remains intact as far as the anastomosis. It was also patent. Of note, however, there was 2-mm ischemic perforation involving the jejunum distal to the previous anastomosis and another 2-mm ischemic perforation in the distal ileum. This perforations were individually repaired using interrupted sutures of 3-0 silk, then imbricated with another layer of 3-0 silk in a Lembert fashion. The abdominal cavity was copiously irrigated clear with saline solution. Remainder of the small bowel was again reinspected. There was an area where the serosa of the jejunum appeared weak. This area was imbricated using interrupted sutures of 3-0 silk. I inspected the remainder of the colon, finding no pathology. The orogastric tube was palpated within the gastric lumen. The abdominal cavity was again irrigated in all 4 quadrants. The urinary bladder appeared to be pulled away into the space of Retzius. I was concerned about the integrity of the bladder. I did have an intraoperative consultation with Dr. Mora with Urology, who assisted with evaluation of the bladder. There was no bladder injury noted. At this juncture, finding no other pathology, exploration was terminated. All sponges and instruments were removed and accounted for. Small bowel was returned to normal anatomic location. Omentum is drawn over remainder of the viscera. Fascia was approximated in the midline using a running stitch of #1 single stranded PDS. Subcutaneous tissues were pulse lavaged with 3 L of sterile saline. Wound VAC sponge was then placed in the subcutaneous tissues. External wound VAC dressing done over the entire abdomen, connected to vacuum assisted device with good suction. The patient tolerated the operation without any apparent complication and was returned to the intensive care unit in critical, but stable condition. Job ID: [id number]
[2018-05-05] MEDS ORDERED: [UNRECOGNIZED DRUG - OTHER] IV SCH (22:00)
[2018-05-05] MEDS ORDERED: SODIUM ACETATE IV SCH (22:00)
[2018-05-05] MEDS ORDERED: POTASSIUM CHLORIDE IV SCH (22:00)
[2018-05-05] MEDS ORDERED: MULTIVITAMINS IV SCH (22:00)
[2018-05-05] MEDS ORDERED: WATER IV SCH (22:00)
[2018-05-05] MEDS ORDERED: SODIUM CHLORIDE IV SCH (22:00)
[2018-05-05] MEDS ORDERED: [UNRECOGNIZED DRUG - OTHER] IV SCH (22:00)
[2018-05-05] MEDS ORDERED: DEXTROSE IV SCH (22:00)
[2018-05-05] MEDS ORDERED: MULTITRACE IV SCH (22:00)
[2018-05-06] MEDS: Piperacillin/Tazobactam 3.375 GM in Sodium Chloride 0.9% 100 ML IVPB SCH (03:43)
[2018-05-06 05:45] LABS: Anion Gap 16 mmol/L (10-20); BUN (Urea Nitrogen) 64 mg/dL (8.4-25.7); Calc. Creatinine Clearance 31 mL/min (70-130); Calcium 7.9 mg/dL (7.8-10.44); Carbon Dioxide 21 mmol/L (23-31); Chloride 109 mmol/L (98-107); Estimated GFR-MDRD 24; Glucose 176 mg/dL (83-110); Magnesium 2.7 mg/dL (1.6-2.6); Phosphorus 4.3 mg/dL (2.3-4.7); Potassium 3.9 mmol/L (3.5-5.1); Sodium 142 mmol/L (136-145)
[2018-05-06 05:47] LABS: Band 27 % (5-11); Hemoglobin 8.1 g/dL (14.0-18.0); Lymphocytes 4 % (21-51); MDiff Complete? YES; Mean Corpuscular Hemoglobin 30.6 pg (27.0-31.0); Mean Corpuscular Volume 92.8 fL (78.0-98.0); Mean Platelet Volume 8.3 fL (7.4-10.4); Monocytes 7 % (0-10); Neutrophil 62 % (42-75); Platelet Count 330 thou/uL (130-400); Platelet Morphology Comment Appears Adequate; Red Blood Cell (RBC) Count 2.66 mill/uL (4.70-6.10)
[2018-05-06] MEDS ORDERED: Potassium Chloride 20 MEQ in Premix Bag 1 BAG IVPB SCH ×2 (07:15→09:00)
[2018-05-06] MEDS: Lactated Ringer's 1,000 ML IV SCH (08:06)
[2018-05-06] MEDS: Pantoprazole 40 MG VIAL IVP SCH ×2 (08:10→21:14)
[2018-05-06] MEDS: Polyethylene Glycol 3350 17 GM Packet PER TUBE SCH ×2 (08:10→10:48)
[2018-05-06] MEDS ORDERED: Meropenem 1 GM in Sodium Chloride 0.9% 100 ML IVPB SCH (09:00)
[2018-05-06] MEDS: MEROPENEM 1 GM/50 ML 1 GM in Premix Bag 1 BAG IVPB SCH ×2 (09:00→21:14)
[2018-05-06] MEDS ORDERED: Heparin 5,000 UNITS/ML VIAL SC SCH (09:00)
[2018-05-06] MEDS: Amiodarone 450 MG in Dextrose 5% in Water 250 ML IVPB SCH (09:03)
--- NOTE | 2018-05-06 09:34 | PRG ---
DATE OF SERVICE: 05/06/2018 Mr. Tsai is intubated on the ventilator. He required urgent intubation yesterday. He is sedated now. OBJECTIVE: VITAL SIGNS: His blood pressure is 117/84, pulse in the 70s, it is paced. LUNGS: Clear. CARDIAC: Normal S1 and S2. ABDOMEN: Soft and nontender. EXTREMITIES: [id number] edema. SKIN: Warm and dry. LABORATORY DATA: Pertinent laboratory; his creatinine is up to 2.6. ASSESSMENT: 1. Respiratory failure. 2. Chronic atrial fibrillation. 3. Renal failure. 4. Wide-complex tachycardia, controlled. PLAN: 1. Continue intravenous amiodarone. 2. We will hold off on diuretics today inducing increased creatinine. 3. Chest x-ray tomorrow. May need diuretics tomorrow. . Job ID: [id number]
[2018-05-06 10:34] LABS: Actual Bicarbonate (HCO3a) 23.4 mEq/L (22-28); Base Excess (BEa) -0.6 mEq/L (-2.0 to +3.0); CO2 Tension 35.8 mmHg (35.0-45.0); Calcium, Ionized 1.03 mmol/L (1.12-1.30); Carboxyhemoglobin (COHb) 0.8 gm% (0.0-3.0); Hemoglobin (Hb) 8.9 g/dL (14.0-18.0); O2 Tension (PaO2) 87.1 mmHg (> 60.0); Potassium - ABG Lab 3.77 mmol/L (3.70-5.30); pH, Arterial 7.43 (7.35-7.45)
[2018-05-06 10:39] LABS: Puncture Site LINE
[2018-05-06] MEDS ORDERED: Sodium Chloride 38.44 MEQ, Sodium Bicarbonate 100 MEQ in Sterile Water Injection 990.39 ML IV SCH ×2 (14:00→17:45)
[2018-05-06] MEDS ORDERED: Calcium Chloride 1 GM/10 ML Abboject SYRINGE IVP SCH (14:15)
--- NOTE | 2018-05-06 14:27 | PRG ---
DATE OF SERVICE: 05/06/2018 SUBJECTIVE: Mr. Tasi is an 82-year-old man, who is postop day #1, status post reoperative laparotomy and enterotomy x2 for ischemic bowel perforations. The patient remains on mechanical ventilator support. He is sedated on fentanyl by continuous infusion at 100 mcg/hour. His blood pressure is maintained on dopamine at 5 mcg/kg/min. Urinary output is approximately 0.5 mL/kg/hour. The patient awakens to voice. Moves all extremities and follows commands. OBJECTIVE: VITAL SIGNS: This morning include blood pressure 118/63, pulse 78, respiratory rate 23, temperature 100.8 degrees Fahrenheit, maximum temperature last 24 hours was 102.2 yesterday, oxygen saturation is 100% on FiO2 of 50%. HEENT: Pupils are equal, round, reactive to light bilaterally. HEART: Reveals irregular rate and irregular rhythm. LUNGS: Reveal bibasilar rhonchi. Breathing, regular and nonlabored. ABDOMEN: Soft. Incision is intact, clean, and dry. The Harsh-Parnell drain returns 210 mL of serous fluid over last 24 hours. NEUROLOGIC: Reveals no focal deficits present. LABORATORY FINDINGS: Today include a CBC with 11,000 white blood cells, hemoglobin and hematocrit 8.1 and 24.7 respectively, platelet count is 330,000. Metabolic profile; sodium 142, potassium 3.9, chloride is 109, bicarb is 21, BUN is 64, creatinine is 2.62, glucose is 176, magnesium is 2.7, phosphorus is 4.3. Arterial blood gas; pH 7.43, pCO2 is 36, pO2 is 87, base excess is -0.6, ionized calcium is 1.03. IMPRESSION: 1. Postop day #1, status post re-exploratory laparotomy and repair of ischemic perforations. 2. Acute respiratory failure. 3. Acute hypocalcemia. 4. Acute blood loss anemia. 5. Acute kidney injury. PLAN: 1. We will transfuse the patient with 1 unit of packed red blood cells given his acute blood loss anemia and concomitant acute kidney injury. 2. Continue full mechanical ventilator support until the patient is hemodynamically stable. 3. We will continue bowel rest and initiate TPN as the patient has been without nutrition now for almost 1 week. 4. Above findings and plan discussed with the patient's family at bedside. They indicated understanding of information given. I have answered their questions. Total critical care time is 50 minutes. Job ID: [id number]
[2018-05-06] MEDS: DOPamine 400 MG/D5W 250 ML 250 ML IVPB SCH (16:52)
[2018-05-06] MEDS ORDERED: POTASSIUM ACETATE IV SCH (22:00)
[2018-05-06] MEDS ORDERED: SODIUM ACETATE IV SCH (22:00)
[2018-05-06] MEDS ORDERED: POTASSIUM PHOSPHATE IV SCH (22:00)
[2018-05-06] MEDS ORDERED: [UNRECOGNIZED DRUG - OTHER] IV SCH (22:00)
[2018-05-07] MEDS: Amiodarone 450 MG in Dextrose 5% in Water 250 ML IVPB SCH (02:10)
[2018-05-07] MEDS: fentaNYL Citrate/PF 2,000 MCG in Sodium Chloride 0.9% 60 ML IV SCH (04:40)
[2018-05-07 05:33] LABS: #Lymphocytes 0.7 thou/uL (1.20-3.40); #Monocytes 0.8 thou/uL (0.11-0.59); #Neutrophils 14.2 thou/uL (1.40-6.50); %Basophils 0.2 % (0.0-1.0); %Eosinophils 0.2 % (0.0-10.0); %Lymphocytes 4.1 % (21.0-51.0); %Monocytes 4.8 % (0.0-10.0); %Neutrophils 90.7 % (42.0-75.0); Hemoglobin 8.2 g/dL (14.0-18.0); Mean Corpuscular HGB CONC 32.1 g/dL (32.0-36.0); Mean Corpuscular Hemoglobin 29.6 pg (27.0-31.0); Mean Corpuscular Volume 92.5 fL (78.0-98.0); Mean Platelet Volume 7.9 fL (7.4-10.4); Platelet Count 310 thou/uL (130-400); RBC Distribution Width 13.8 % (11.5-14.5); Red Blood Cell (RBC) Count 2.76 mill/uL (4.70-6.10); White Blood Cell (WBC) Count 15.7 thou/uL (4.8-10.8)
[2018-05-07 05:45] LABS: Anion Gap 11 mmol/L (10-20); BUN (Urea Nitrogen) 73 mg/dL (8.4-25.7); Calc. Creatinine Clearance 37 mL/min (70-130); Calcium 8.2 mg/dL (7.8-10.44); Carbon Dioxide 27 mmol/L (23-31); Chloride 109 mmol/L (98-107); Estimated GFR-MDRD 27; Glucose 140 mg/dL (83-110); Magnesium 2.1 mg/dL (1.6-2.6); Phosphorus 3.7 mg/dL (2.3-4.7); Potassium 3.4 mmol/L (3.5-5.1); Sodium 144 mmol/L (136-145)
[2018-05-07 07:27] LABS: Actual Bicarbonate (HCO3a) 25.2 mEq/L (22-28); Base Excess (BEa) 2.2 mEq/L (-2.0 to +3.0); CO2 Tension 33.8 mmHg (35.0-45.0); Calcium, Ionized 1.14 mmol/L (1.12-1.30); Carboxyhemoglobin (COHb) 0.8 gm% (0.0-3.0); Hemoglobin (Hb) 11.1 g/dL (14.0-18.0); O2 Tension (PaO2) 90.4 mmHg (> 60.0); Potassium - ABG Lab 3.54 mmol/L (3.70-5.30); pH, Arterial 7.49 (7.35-7.45)
[2018-05-07 07:36] LABS: Puncture Site LINE
[2018-05-07] MEDS ORDERED: Amiodarone 450 MG in Dextrose 5% in Water 250 ML IVPB SCH (07:50)
[2018-05-07] MEDS ORDERED: Potassium Chloride 40 MEQ in Premix Bag 1 BAG IVPB SCH (08:00)
[2018-05-07] MEDS ORDERED: Furosemide 40 MG/4 ML VIAL SLOW IVP SCH (08:00)
[2018-05-07] MEDS ORDERED: Potassium Chloride 20 MEQ/100 ML PREMIX BAG IVPB SCH (08:00)
[2018-05-07] MEDS ORDERED: Dextrose 5 %-0.45 % NaCl 1,000 ML IV SCH (08:15)
[2018-05-07] MEDS: Pantoprazole 40 MG VIAL IVP SCH (08:26)
--- NOTE | 2018-05-07 08:26 | RAD ---
CHEST ONE VIEW: HISTORY: Dyspnea. Respiratory failure. Followup. COMPARISON: 05/05/2018 FINDINGS: The cardiac silhouette is magnified and enlarged. The pulmonary vasculature is more engorged than on the prior study, with worsening bibasilar infiltrates and pleural fluid. The mediastinum is midline . The tip of an endotracheal trachea overlies the thoracic inlet. A nasogastric tube now descends t he stomach. No evidence of pneumothorax. IMPRESSION: 1. Worsening of pulmonary vascular congestion, bibasilar infiltrates, and pleural fluid. 2. Endotracheal catheter and nasogastric tube have been placed and are in good radiographic position . POS: T[facility]
[2018-05-07] MEDS ORDERED: Potassium Chloride 20 MEQ in Premix Bag 1 BAG IVPB SCH (08:30)
[2018-05-07] MEDS: MEROPENEM 1 GM/50 ML 1 GM in Premix Bag 1 BAG IVPB SCH ×2 (08:42→20:56)
--- NOTE | 2018-05-07 08:44 | PRG ---
DATE OF SERVICE: 05/07/2018 SUBJECTIVE: Mr. Tsai remains intubated on the ventilator. OBJECTIVE: VITAL SIGNS: His blood pressure is 100/60, pulse is 70, it is ventricular paced. LUNGS: Clear. CARDIAC: Normal S1, S2. ABDOMEN: Nontender. EXTREMITIES: Warm and dry. IMAGING DATA: Chest x-ray looks like there is pulmonary vascular congestion. LABORATORY DATA: The creatinine stabilized at 2.35, potassium 3.4. ASSESSMENT: 1. Postoperative status. 2. Congestive heart failure. It is volume overloaded, systolic, acute on chronic. 3. Previous pacemaker and atrioventricular junction ablation. 4. Mild hypokalemia. PLAN: 1. Start intravenous furosemide. 2. Replete potassium. 3. We will reduce the amiodarone for the ventricular arrhythmias, probably start tomorrow if stable. Dr. Lopez on-call this weekend, Dr. Douglas will return to care for the patient on Thursday. ADDENDUM I spoke with Dr. Che. He feels at this point, we should not give furosemide in view of his renal insufficiency. Therefore, we will not give furosemide today. He will be evaluated on a daily basis or tomorrow to see whether he needs diuretics. Job ID: [id number]
[2018-05-07] MEDS: DOPamine 400 MG/D5W 250 ML 250 ML IVPB SCH ×2 (09:44→23:17)
[2018-05-07] MEDS: Acetaminophen 1,000 MG in Premix Bag 1 BAG IVPB SCH ×2 (11:27→17:29)
--- NOTE | 2018-05-07 12:35 | PRG ---
DATE OF SERVICE: 05/07/2018 SUBJECTIVE: This is an 82-year-old man, who was admitted with abdominal pain. The patient is postop day #8 status post exploratory laparotomy, extensive adhesiolysis, and segmental small bowel resection with primary anastomosis for acute closed-loop small-bowel obstruction with multiple intraabdominal adhesions. He is also postoperative day #2 status post reoperative laparotomy with enterorrhaphy x2 for ischemic small-bowel perforations. Currently, the patient is slightly sedated, on mechanical ventilatory support. He is on fentanyl at 40 mcg/hour and dopamine at 5 mcg/kg/minute. Urinary output is appropriate for his weight. He opens his eyes to tactile stimulus and moves all extremities and following commands. OBJECTIVE: VITAL SIGNS: This morning, includes blood pressure 102/44, pulse is 79, respiratory rate is 19, and current temperature is 98.9 degrees Fahrenheit. Maximum temperature in the last 24 hours is 100.8 degrees Fahrenheit. HEENT: Pupils are equal, round, and reactive to light and accommodation. NECK: He has no jugular venous distention noted. HEART: Reveals irregular rate and irregular rhythm. It is however, rate controlled. LUNGS: Reveal bibasilar rhonchi. Breathing, regular and nonlabored. ABDOMEN: Soft and obese. Incision is clean at dressing change. Harsh-Parnell drain returns scant serous fluid. He has bowel sounds in all 4 quadrants. He is not having any bowel movements yet. EXTREMITIES: Reveal 2+ radial and pedal pulses bilaterally. There is minimum bilateral ankle edema present. NEUROLOGIC: Reveals no focal deficits present. LABORATORY FINDINGS: Today includes a CBC with 15,700 white blood cells, hemoglobin and hematocrit of 8.2 and 25.5 respectively. Platelet count is 310,000. Metabolic profile reveals sodium 144, potassium is 3.4, chloride is 109, bicarb is 27, BUN is 73, creatinine is 2.35, glucose is 140, magnesium 2.1, and phosphorus is 3.7. IMAGING STUDIES: Chest x-ray today reveals slightly enlarged cardiac silhouette with bilateral pleural effusions. ASSESSMENT: 1. Acute septic shock, stable. 2. Acute respiratory failure. 3. Postop day #2 status post re-exploratory laparotomy and repair of ischemic small-bowel perforations. 4. Resolving acute kidney injury. 5. Acute blood loss anemia. The patient continues to have gross hematuria and is on continuous bladder irrigation. PLAN: 1. Continue with mechanical ventilator support and initiate ventilator wean as the patient tolerates. 2. We will transfuse the patient with 1 unit of packed red blood cells and monitor serial hemoglobin for hemostasis. 3. Continue with broad-spectrum antibiotic therapy. 4. Continue to monitor the patient's urinary output and creatinine clearance as endpoint of resuscitation and begin to wean dopamine as blood pressure tolerates. 5. Above findings and plan were discussed with the patient's at bedside. She indicates understanding of information given. I have answered their questions. Total critical care time is 45 minutes. Job ID: [id number]
[2018-05-07] MEDS: POTASSIUM PHOSPHATE IV SCH (22:18)
[2018-05-07] MEDS: [UNRECOGNIZED DRUG - OTHER] IV SCH (22:18)
[2018-05-07] MEDS: SODIUM ACETATE IV SCH (22:18)
[2018-05-07] MEDS: POTASSIUM ACETATE IV SCH (22:18)
[2018-05-08] MEDS: Acetaminophen 1,000 MG in Premix Bag 1 BAG IVPB SCH ×2 (00:25→05:51)
[2018-05-08 05:28] LABS: Anion Gap 11 mmol/L (10-20); BUN (Urea Nitrogen) 76 mg/dL (8.4-25.7); Calc. Creatinine Clearance 47 mL/min (70-130); Calcium 8.1 mg/dL (7.8-10.44); Carbon Dioxide 27 mmol/L (23-31); Chloride 109 mmol/L (98-107); Estimated GFR-MDRD 35; Glucose 131 mg/dL (83-110); Magnesium 2.3 mg/dL (1.6-2.6); Potassium 3.3 mmol/L (3.5-5.1); Sodium 144 mmol/L (136-145)
[2018-05-08 05:54] LABS: Phosphorus 2.4 mg/dL (2.3-4.7)
[2018-05-08 06:02] LABS: Band 11 % (5-11); Hemoglobin 8.3 g/dL (14.0-18.0); Lymphocytes 5 % (21-51); MDiff Complete? YES; Mean Corpuscular HGB CONC 32.4 g/dL (32.0-36.0); Mean Corpuscular Hemoglobin 29.6 pg (27.0-31.0); Mean Corpuscular Volume 91.4 fL (78.0-98.0); Monocytes 5 % (0-10); Neutrophil 79 % (42-75); Platelet Count 353 thou/uL (130-400); Platelet Morphology Comment Appears Adequate; RBC Distribution Width 13.6 % (11.5-14.5); White Blood Cell (WBC) Count 13.9 thou/uL (4.8-10.8)
[2018-05-08 07:22] LABS: Actual Bicarbonate (HCO3a) 26.2 mEq/L (22-28); Base Excess (BEa) 3.2 mEq/L (-2.0 to +3.0); CO2 Tension 33.4 mmHg (35.0-45.0); Calcium, Ionized 1.19 mmol/L (1.12-1.30); Carboxyhemoglobin (COHb) 0.9 gm% (0.0-3.0); Hemoglobin (Hb) 8.3 g/dL (14.0-18.0); O2 Tension (PaO2) 73.2 mmHg (> 60.0); pH, Arterial 7.51 (7.35-7.45)
[2018-05-08 07:23] LABS: Puncture Site RR
[2018-05-08] MEDS ORDERED: Potassium Phosphate 30 MMOL in Sodium Chloride 0.9% 500 ML IVPB SCH (07:45)
[2018-05-08] MEDS ORDERED: Magnesium Sulfate 2 GM in Sodium Chloride 0.9% 100 ML IVPB SCH (07:45)
[2018-05-08] MEDS ORDERED: Magnesium 2 GM/50 ML 2 GM in Premix Bag 1 BAG IVPB SCH (08:00)
[2018-05-08] MEDS: Pantoprazole 40 MG VIAL IVP SCH (08:46)
[2018-05-08] MEDS: MEROPENEM 1 GM/50 ML 1 GM in Premix Bag 1 BAG IVPB SCH ×2 (08:46→21:00)
[2018-05-08] MEDS ORDERED: Furosemide 40 MG/4 ML VIAL SLOW IVP SCH (09:00)
[2018-05-08] MEDS ORDERED: Acetaminophen 500 MG TAB PER TUBE SCH (09:30)
[2018-05-08] MEDS ORDERED: Acetaminophen 500 MG TAB PO SCH (10:00)
--- NOTE | 2018-05-08 10:14 | PRG ---
DATE OF SERVICE: 05/08/2018 SUBJECTIVE: I am covering for Dr. Mora over the weekend. Mr. Tsai is still intubated, but alert and appropriate and following commands. The catheter has been draining overnight and was irrigated twice by the nursing staff just for concern for clots, but had not been obstructed. CBI has been on a relatively low drip. OBJECTIVE: VITAL SIGNS: His vitals have been stable with a T-max of 99.2, blood pressure in the 90s to 100s systolic, heart rate in the 60s to 70s, saturating 93% to 100% with supplemental oxygen. He was getting physical therapy as I examined the catheter. His scrotum is significantly edematous, but there is a towel placed underneath it for elevation. It was still soft, appearing to be less full given the wrinkling of the scrotum, the swelling may be going down. The phallus was circumcised and somewhat buried in the swelling of the scrotum with the catheter intact but not secured, so I asked the nurse to ensure that. The urine was light pink in the tubing. I flushed it through with the irrigation component on full and noted clear to water color, so turned the CBI back to very low. LABORATORY VALUES: Reveal stable anemia, slightly alkaline blood gas 7.51 with 33.4, 73.2, 26.2. His BUN and creatinine are improved to 76 and 1.87. He has had 2150 listed as output, but I suspect some of this is from the CBI as well. ASSESSMENT: We have an 82-year-old gentleman with persistent general surgical issues, who has gross hematuria and currently is getting a three way, which is most likely from the prostate and seems to be improving. The goal will be to wean off the CBI if allowed, but to definitely keep the catheter for now. If he does get extubated, then we can start finasteride daily to help decrease bleeding from the prostate. Job ID: [id number]
--- NOTE | 2018-05-08 12:01 | PDOC.CTH ---
Cardiology Progress Note - Objective Vital Signs Temp Pulse Pulse Resp BP BP Pulse Ox 05/08/18 09:02 74 101/50 L 05/08/18 08:35 98 05/08/18 08:00 99.0 F 14 100 05/08/18 07:11 74 103/59 L 05/08/18 07:00 99 05/08/18 06:00 17 05/08/18 04:00 99.2 F 15 05/08/18 02:00 18 05/08/18 01:00 98.8 F Pulse Ox 05/08/18 09:02 100 05/08/18 08:35 05/08/18 08:00 05/08/18 07:11 05/08/18 07:00 05/08/18 06:00 05/08/18 04:00 05/08/18 02:00 05/08/18 01:00 Admit Weight 219 lb Weight 236 lb 12.423 oz 05/07/18 05/08/18 05/09/18 06:59 06:59 06:59 Intake Total 2647 6138 50 Output Total 3880 2640 855 Balance -1233 3498 -805 - Physical Examination General/Neuro: alert & oriented x3 Neck: no JVD present Lungs: CTA Heart: RRR Abdomen: soft - Labs Result Diagrams: 05/08/18 05:00 05/08/18 05:00 Troponin/CKMB Troponin I 0.012 ng/mL (< 0.028) 05/04/18 04:50 - Assessment/Plan 1. Acute hypoxic respiratory insufficiency. Extubated this AM. Stable. 2. Underlying afib.pacing. Occasional PVC's. 3. Wide complex tachycardia. short run last night. 4. Bowel obstruction. 5. 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 S/P AVJ ablation. PLAN: - Continue Amiodarone drip. - Supportive care.
--- NOTE | 2018-05-08 12:15 | PRG ---
DATE OF SERVICE: 05/08/2018 SUBJECTIVE: Mr. Tsai is an 82-year-old man, who is postop day #9 status post exploratory laparotomy, extensive adhesiolysis, and segmental small bowel resection with primary anastomosis for acute closed-loop small bowel obstruction. He is also postoperative day #3 status post reoperative exploratory laparotomy with enterorrhaphy x3 for ischemic small bowel perforations. He is currently on mechanical ventilator support. He has tolerated ventilatory wean. Urinary output is adequate. Blood pressure is being maintained with dopamine at 5 mcg/kg/minute. OBJECTIVE: GENERAL: He awakens to voice. Moves all extremities and follows commands. VITAL SIGNS: This morning include blood pressure 101/64, pulse is 74, respiratory rate is 25, temperature is 99 degrees Fahrenheit, maximum temperature in last 24 hours is 99.9 degrees Fahrenheit. He remains on meropenem. He did have Klebsiella pneumoniae bacteremia documented on 05/05/2018. HEENT: Pupils are equal, round, and reactive to light bilaterally. HEART: Reveals irregular rate and irregular rhythm. LUNGS: Reveal bibasilar rhonchi. Breathing regular, nonlabored. ABDOMEN: Soft, moderately distended and with incisional tenderness to palpation. There is minimum rebound tenderness present. Harsh-Parnell drain returns scant amount of serous fluid. : Gross hematuria is resolving. NEUROLOGIC: Reveals no focal deficits present. LABORATORY FINDINGS: Today include a CBC with decreasing white blood cell count of 13,900, hemoglobin and hematocrit remain stable at 8.3 and 25.6 respectively, platelet count is 253,000. Metabolic profile; sodium 144, potassium is 3.3, chloride is 109, bicarb is 27, BUN 76, creatinine is 1.87, glucose is 131, magnesium is 2.3, and phosphorus is 2.4. IMPRESSION: 1. Postop day #9 status post exploratory laparotomy with extensive adhesiolysis, segmental small bowel resection, primary anastomosis for closed-loop small bowel obstruction. 2. Postop day #3 status post re-exploratory laparotomy, enterorrhaphy x3 for ischemic bowel perforations. 3. Acute respiratory failure, resolving. 4. Acute kidney injury, resolving. 5. Acute hypokalemia. 6. Acute hypophosphatemia. 7. Klebsiella pneumoniae bacteremia with septic shock, resolving. PLAN: 1. The patient will be weaned and extubated accordingly. 2. Continue broad-spectrum antibiotic therapy. 3. Correct abnormal electrolytes. 4. Continue to monitor the patient's renal function as the acute kidney injury resolves. 5. In the interim, we will continue TPN as the patient is unlikely able to resume enteral nutritional supplementation due to recent ischemic bowel. 6. Above findings and plan have been discussed with the patient's family at bedside. They indicated understanding information given. I have answered their questions. Total critical care time is 45 minutes. Job ID: [id number]
[2018-05-08] MEDS: DOPamine 400 MG/D5W 250 ML 250 ML IVPB SCH (13:39)
[2018-05-08] MEDS: traMADol HCl 50 MG TAB PO PRN ×2 (16:21→23:49)
[2018-05-08] MEDS: SODIUM ACETATE IV SCH (21:59)
[2018-05-08] MEDS: POTASSIUM ACETATE IV SCH (21:59)
[2018-05-08] MEDS: POTASSIUM PHOSPHATE IV SCH (21:59)
[2018-05-08] MEDS: [UNRECOGNIZED DRUG - OTHER] IV SCH (21:59)
[2018-05-09] MEDS: DOPamine 400 MG/D5W 250 ML 250 ML IVPB SCH (04:18)
[2018-05-09 05:46] LABS: Phosphorus 2.4 mg/dL (2.3-4.7)
[2018-05-09 05:47] LABS: Anion Gap 12 mmol/L (10-20); BUN (Urea Nitrogen) 65 mg/dL (8.4-25.7); Calc. Creatinine Clearance 67 mL/min (70-130); Calcium 8.3 mg/dL (7.8-10.44); Carbon Dioxide 27 mmol/L (23-31); Chloride 110 mmol/L (98-107); Estimated GFR-MDRD 53; Glucose 123 mg/dL (83-110); Magnesium 2.1 mg/dL (1.6-2.6); Potassium 3.4 mmol/L (3.5-5.1); Sodium 146 mmol/L (136-145)
[2018-05-09 08:03] LABS: Band 6 % (5-11); Eosinophils 1 % (0-10); Hemoglobin 9.1 g/dL (14.0-18.0); Lymphocytes 8 % (21-51); MDiff Complete? YES; Mean Corpuscular HGB CONC 32.9 g/dL (32.0-36.0); Mean Corpuscular Hemoglobin 30.4 pg (27.0-31.0); Mean Corpuscular Volume 92.3 fL (78.0-98.0); Monocytes 2 % (0-10); Neutrophil 83 % (42-75); Platelet Count 455 thou/uL (130-400); RBC Distribution Width 13.6 % (11.5-14.5); White Blood Cell (WBC) Count 11.4 thou/uL (4.8-10.8)
[2018-05-09] MEDS ORDERED: Magnesium Sulfate 2 GM in Sodium Chloride 0.9% 100 ML IVPB SCH (08:30)
[2018-05-09] MEDS ORDERED: Magnesium 2 GM/50 ML 2 GM in Premix Bag 1 BAG IVPB SCH (08:30)
[2018-05-09] MEDS ORDERED: Potassium Phosphate 30 MMOL in Sodium Chloride 0.9% 500 ML IVPB SCH (08:30)
[2018-05-09] MEDS ORDERED: Clopidogrel Bisulfate 75 MG TAB ONE (08:33)
[2018-05-09] MEDS: Finasteride 5 MG TAB PO SCH (08:36)
[2018-05-09] MEDS: MEROPENEM 1 GM/50 ML 1 GM in Premix Bag 1 BAG IVPB SCH ×2 (08:56→20:10)
[2018-05-09] MEDS: Pantoprazole 40 MG VIAL IVP SCH (08:58)
--- NOTE | 2018-05-09 11:31 | PRG ---
DATE OF SERVICE: 05/09/2018 SUBJECTIVE: The patient did well over the last 24 hours. He has remained extubated. His catheter has been draining well even after the CBI was stopped at about late afternoon yesterday and he has not required any hand irrigation in the last 24 hours. Nurse does report some spasm around the catheter, but it has always been draining well. OBJECTIVE: VITAL SIGNS: He has been afebrile with T-max 98.4, and vital signs stable. He has put out over 3 L, part of that did include some CBI, but otherwise the majority of that is diuresis. GENERAL: On physical exam, his breathing does appear a little labored, but he is alert and appropriate. The urine is light pink off any CBI. His scrotum is still swollen, but unchanged from yesterday and still elevated. Catheter is secured. LABORATORY DATA: He has an improved H and H of 9.1 and 27.7. His creatinine is improved to 1.31. ASSESSMENT: We have an 82-year-old gentleman with hematuria, most likely from the prostate. He was able to come off a CBI at this time. I asked the nurse to plug the irrigation portion of the catheter, but also to hand irrigate it one more time to ensure that the spasms are not related to residual clot. Otherwise, keep the CBI off and only start it as needed. I have added finasteride to help with prostatic bleeding since he is now tolerating oral medications, and we will continue the Caruso for now. Job ID: [id number] MTDD
[2018-05-09] MEDS ORDERED: Furosemide 40 MG/4 ML VIAL SLOW IVP SCH ×2 (11:45→21:00)
[2018-05-09] MEDS ORDERED: Albumin 25% 25 GM/100 ML BOT IVPB ONE (11:56)
[2018-05-09] MEDS ORDERED: Albumin 25% 25 GM/100 ML BOT IVPB SCH ×2 (12:30→13:40)
[2018-05-09] MEDS: traMADol HCl 50 MG TAB PO PRN ×2 (13:11→20:11)
--- NOTE | 2018-05-09 13:59 | PDOC.CTH ---
Cardiology Progress Note - Subjective Pt. seen and eval. by me. he is extubated, confused but does not appear to be in pain. - Objective Vital Signs Temp Pulse Pulse Pulse Resp BP BP 05/09/18 12:40 76 27 H 05/09/18 12:00 98.1 F 05/09/18 09:00 74 73 110/79 109/59 L 05/09/18 08:00 98.4 F 05/09/18 07:01 05/09/18 06:44 75 18 05/09/18 04:00 97.9 F Pulse Ox Pulse Ox Pulse Ox 05/09/18 12:40 99 05/09/18 12:00 05/09/18 09:00 95 95 05/09/18 08:00 98 05/09/18 07:01 97 05/09/18 06:44 97 05/09/18 04:00 Admit Weight 219 lb Weight 236 lb 12.423 oz 05/08/18 05/09/18 05/10/18 06:59 06:59 06:59 Intake Total 6138 3255.4 110 Output Total 2640 3875 430 Balance 3498 -619.6 -320 - Physical Examination General/Neuro: other: (alert.) Neck: no JVD present Lungs: other: (bilat. rales.) Heart: RRR (pacing.) Abdomen: soft, other: (BS present. Surgical dressing and drain in place.) Extremities: other: (scrotal edema.) - Telemetry Telemetry Rhythm: pacing, underlying afib. - Labs Result Diagrams: 05/09/18 05:05 05/09/18 03:30 Troponin/CKMB Troponin I 0.012 ng/mL (< 0.028) 05/04/18 04:50 - Assessment/Plan 1. Acute hypoxic respiratory insufficiency. Extubated this AM. Stable. Somewhat SOB. 2. Underlying afib.pacing. Occasional PVC's. 3. Wide complex .Pacing. 4. Bowel obstruction. 5. PPM in place. V-pacing.Underlying A-fib. 6. S/P AVJ ablation. 7. S/P surgery for #4. Redo surgery for perforation. bandage inplace. Drain in place. 8. Confusion. 9. Incr. BUN:Creat. Intravascular depletion. 10. anemia,postop. PLAN: - Continue Amiodarone drip. - Supportive care.
--- NOTE | 2018-05-09 14:14 | PRG ---
DATE OF SERVICE: 05/09/2018 SUBJECTIVE: Mr. Tsai is an 82-year-old man. The patient is postop day #10 status post exploratory laparotomy, extensive adhesiolysis, segmental small bowel resection with primary anastomosis for closed-loop small-bowel obstruction. He is also postop day #4 status post re-exploratory laparotomy with enterorrhaphy x3 for ischemic small-bowel perforations. He has been successfully extubated now for 48 hours. He is awake and alert, slightly confused, moving all extremities, but follows commands. This gives him a Fritz Coma Scale of 14. He is on TPN for nutritional support. He is currently n.p.o. and has not had any bowel movements. He is on dopamine at 5 mcg/kg/minute. OBJECTIVE: VITAL SIGNS: Today includes blood pressure 104/63, pulse is 78, respiratory rate is 78 and irregular, oxygen saturation is 100% on 3 L by nasal cannula oxygen. HEENT: Pupils are equal, round, reactive to light and accommodation. NECK: He has no jugular venous distention noted. HEART: Reveals irregular rate and irregular rhythm. LUNGS: Reveal bibasilar rhonchi. Breathing, regular and nonlabored. ABDOMEN: Soft and obese with no significant tenderness to palpation. Bowel sounds in all 4 quadrants appear normoactive. Harsh-Parnell drain returns scant amount of serous fluid over the last 24 hours. EXTREMITIES: Reveal 2+ radial and pedal pulses bilaterally. He has trace bilateral ankle edema present. NEUROLOGIC: Reveals no focal deficits present. LABORATORY FINDINGS: Today includes [place] [address], hemoglobin and hematocrit stable at 9.1 and 27.7 respectively. Platelet count is 455,000. Metabolic profile; sodium 146, potassium is 3.4, chloride is 110, bicarb is 27, BUN and creatinine are improving now 65 and 1.31 respectively. This is a significant improvement from 64 and 2.62 three days previously. Glucose is 123 today. Magnesium and phosphorus 2.1 and 2.4 respectively. His BNP is elevated at 797. IMPRESSION: 1. Postoperative day #10 status post exploratory laparotomy with segmental small bowel resection with primary anastomosis, postoperative day #4 status post re-exploratory laparotomy and enterorrhaphy x3 for ischemic small-bowel perforations. 2. Resolving acute peritonitis. 3. Resolving acute septic shock. 4. Resolving acute kidney injury. 5. Resolving acute pulmonary insufficiency. 6. Acute hypophosphatemia. 7. Acute hypokalemia. 8. Acute on chronic congestive heart failure. PLAN: 1. Initiate gentle diuresis, monitoring the patient's urinary output and creatinine clearance as endpoint of diuresis and resuscitation. 2. Correct abnormal electrolytes. 3. Continue with pulmonary toilet and increase activity as tolerated. 4. We will continue to withhold chemical VTE prophylaxis as the patient has been managed with continuous bladder medication for gross hematuria. We will obtain lower extremity duplex sonography today to rule out DVT. Meanwhile, we will continue with non-pharmacological VTE prophylaxis. 5. We will increase physical activity per Physical and Occupational therapy. Above findings and plan has been discussed with the patient and family at bedside. We will introduce oral intake upon return of bowel function. Total Critical care time : 55 minutes Job ID: [id number] MTDD
--- NOTE | 2018-05-09 15:17 | ULT ---
ULTRASOUND WITH DOPPLER DUPLEX VENOUS LOWER EXTREMITY BILATERAL: CPT: 50812 ICD-10-PCS: B54D INDICATION: Postoperative patient with edema. TECHNIQUE: Color flow Doppler, spectral waveform analysis of pulsed Doppler, and santos-scale imaging with hal tereza and augmentation, were used to evaluate the bilateral common femoral, femoral, popliteal, jig borer ior tibial, and superficial femoral, veins; and the proximal portions of the profunda femoral and gre ater saphenous, veins. FINDINGS: Appropriate compressibility and flow within the imaged deep vein system of each visualized lower extr emity. No deep venous thrombosis is evident. There is interspersed decreased, reticular oriented echogenicity indicative of soft tissue edema. IMPRESSION: 1. No deep venous thrombosis of the visualized bilateral lower extremities. 2. Soft tissue edema. Correlate clinically. POS: ANN
[2018-05-09] MEDS ORDERED: POTASSIUM PHOSPHATE IV SCH (22:00)
[2018-05-09] MEDS ORDERED: SODIUM ACETATE IV SCH (22:00)
[2018-05-09] MEDS ORDERED: POTASSIUM ACETATE IV SCH (22:00)
[2018-05-09] MEDS ORDERED: [UNRECOGNIZED DRUG - OTHER] IV SCH (22:00)
[2018-05-10 05:06] LABS: Band 2 % (5-11); Lymphocytes 1 % (21-51); MDiff Complete? YES; Mean Corpuscular HGB CONC 32.9 g/dL (32.0-36.0); Mean Corpuscular Hemoglobin 30.4 pg (27.0-31.0); Mean Corpuscular Volume 92.2 fL (78.0-98.0); Mean Platelet Volume 7.5 fL (7.4-10.4); Monocytes 6 % (0-10); Neutrophil 91 % (42-75); Platelet Count 527 thou/uL (130-400); Platelet Morphology Comment Appears Increased; RBC Distribution Width 13.9 % (11.5-14.5); Red Blood Cell (RBC) Count 2.96 mill/uL (4.70-6.10); White Blood Cell (WBC) Count 15.6 thou/uL (4.8-10.8)
[2018-05-10] MEDS: Levothyroxine 150 MCG TAB PO SCH (05:45)
[2018-05-10 05:58] LABS: Anion Gap 16 mmol/L (10-20); BUN (Urea Nitrogen) 81 mg/dL (8.4-25.7); Calc. Creatinine Clearance 53 mL/min (70-130); Calcium 8.5 mg/dL (7.8-10.44); Carbon Dioxide 27 mmol/L (23-31); Chloride 110 mmol/L (98-107); Estimated GFR-MDRD 40; Glucose 137 mg/dL (83-110); Magnesium 2.2 mg/dL (1.6-2.6); Phosphorus 3.7 mg/dL (2.3-4.7); Potassium 3.5 mmol/L (3.5-5.1); Sodium 149 mmol/L (136-145)
[2018-05-10] MEDS: Finasteride 5 MG TAB PO SCH (08:36)
[2018-05-10] MEDS: traMADol HCl 50 MG TAB PO PRN ×2 (08:37→17:54)
[2018-05-10] MEDS: Pantoprazole 40 MG VIAL IVP SCH (08:38)
[2018-05-10] MEDS: Bisacodyl 10 MG SUPP PR SCH (08:38)
[2018-05-10] MEDS: DOPamine 400 MG/D5W 250 ML 250 ML IVPB SCH (08:38)
[2018-05-10] MEDS: Amiodarone 200 MG TAB PO SCH ×3 (08:41→20:45)
[2018-05-10] MEDS: MEROPENEM 1 GM/50 ML 1 GM in Premix Bag 1 BAG IVPB SCH ×2 (08:41→20:45)
[2018-05-10] MEDS ORDERED: Dutasteride 0.5 MG CAP PO SCH (09:00)
--- NOTE | 2018-05-10 09:04 | PRG ---
DATE OF SERVICE: 05/10/2018 SUBJECTIVE: Mr. Tsai is extubated. He is sleepy, but arousable. He is taking medications with sips of water. OBJECTIVE: VITAL SIGNS: His blood pressure 110/60, pulse is in the 70s and is paced. LUNGS: Clear. CARDIAC: Normal S1 and S2. ABDOMEN: Soft, nontender. ASSESSMENT: 1. Ventricular arrhythmias improved. 2. Pacemaker dependent. 3. Respiratory failure improved. PLAN: 1. He is on very low-dose intravenous amiodarone. We will turn it off and give him oral amiodarone. 2. No other changes at the present time. Job ID: [id number] [facility]
--- NOTE | 2018-05-10 10:26 | RAD ---
ABDOMEN 1 VIEW: Date: 05/10/18 HISTORY: Dobbhoff placement. COMPARISON: Abdomen radiograph dated 04/29/18. FINDINGS: Dobbhoff tube is in place with tip at the gastric body. Mild distended loops of bowel in the abdomen. Heart size is enlarged. IMPRESSION: Dobbhoff tube tip at the gastric body. Recommend advancing. POS: [facility]
--- NOTE | 2018-05-10 10:35 | PRG ---
DATE OF SERVICE: 05/07/2018 SUBJECTIVE: This is a patient, whom I am seeing because of gross hematuria. He is in the ICU still, still intubated. His creatinine has improved some yesterday, it was 2.6; today, it is 2.3. He is anemic and he is being transfused another unit today, I think he received a unit yesterday. Also, he had a urine culture done on the that was 2 days ago and it has no growth at 48 hours. He is still on a dopamine drip. He is on meropenem for antibiotics. His urine output appears to have increased fairly significantly from yesterday and that is a very good sign. His bulb drainage has decreased, that is an intraperitoneal drain. He did have some trouble last night where the catheter occluded some and the nurses had to irrigate it for clots. This morning when I saw him, it appeared to be draining well. I saw him again at lunch time and I irrigated him with about 500 mL of saline and got a few more clots out . I have got him so he is really looking just a very pale pink color, and a really slow CBI. I do not think we should stop CBI. At this point, we will leave the Caruso in and keep him on continuous bladder irrigation until the urine is cleared. There is no obvious source for the bleeding short of him having a catheter in, having very large prostate and that may be it. He is having this blood after the initial surgery he had in a week or so ago. There was nothing to suggest a bladder injury and I am talking with the Trauma surgeon that would have suggested a ureteral injury and I think the amount of blood they had been unusual and has a ureteral injury as a cause for that. I think most likely it is just prostatic bleeding that should resolve. He is no longer on heparin and that should help. It appears that his creatinine is improving and his urine output is improving. If his urine clears, we can adjust the CBI and even turn it off over the weekend. If not, just keep him on slow CBI over that time. Dr. Singer is on-call this weekend, so I will check out with her, so she will be aware of and she can check on him. Job ID: [id number]
[2018-05-10] MEDS ORDERED: MD-Gastroview 120 ML BOT ONE (11:04)
[2018-05-10 11:20] LABS: Actual Bicarbonate (HCO3a) 28.3 mEq/L (22-28); CO2 Tension 33.2 mmHg (35.0-45.0); Calcium, Ionized 1.15 mmol/L (1.12-1.30); Carboxyhemoglobin (COHb) 0.8 gm% (0.0-3.0); Hemoglobin (Hb) 11.4 g/dL (14.0-18.0); Potassium - ABG Lab 3.43 mmol/L (3.70-5.30)
[2018-05-10 11:21] LABS: O2 Tension (PaO2) 53.5 mmHg (> 60.0); Puncture Site RRA; pH, Arterial 7.55 (7.35-7.45)
--- NOTE | 2018-05-10 12:02 | PRG ---
DATE OF SERVICE: 05/10/2018 SUBJECTIVE: Mr. Tsai is an 82-year-old man postop day #11 status post exploratory laparotomy, extensive adhesiolysis, segmental small bowel resection with primary anastomosis for closed-loop small-bowel obstruction. He is also postop day #4 status post re-exploratory laparotomy with enterorrhaphy x3 for ischemic bowel perforations. He has been over 48 hours now since the patient was extubated. Urinary output is adequate. Gross hematuria is resolving, although intermittently the patient has old clots being flushed out of the urinary bladder. Blood pressure remains stable on dopamine at 5 mcg/kg/minute. OBJECTIVE: VITAL SIGNS: This morning include blood pressure 100/55, pulse 71 and irregular, respiratory rate is 26, temperature 98.3 degrees Fahrenheit, maximum temperature in last 24 hours is 98.9 degrees Fahrenheit. Oxygen saturation is 96% on 3 L by nasal cannula oxygen. HEENT: Pupils are equal, round, and reactive to light bilaterally. HEART: Reveals irregular rate and irregular rhythm. LUNGS: Revealed bibasilar rhonchi. Breathing regular, nonlabored. ABDOMEN: Soft and obese with no tenderness to palpation. Bowel sounds in all 4 quadrants appear normoactive. Midline incisional wound is clean. No gross purulence present. Harsh-Parnell drain returns scant serous fluid output. EXTREMITIES: Reveal 2+ radial and pedal pulses bilaterally. There is trace bilateral ankle edema present. NEUROLOGIC: Reveals no focal deficits present. LABORATORY FINDINGS: Today includes a CBC with 15,600 white blood cells, hemoglobin and hematocrit are 9 and 27.3 respectively. Platelet count 527,000. Metabolic profile; sodium 149, potassium 3.5, chloride is 110, bicarb is 27, BUN is 81, creatinine is 1.66, glucose is 137. Magnesium 2.2, phosphorus 3.7. Arterial blood gas today pH 7.55, pCO2 is 33.2, PO2 is 53, base excess is 6.0, ionized calcium is 1.15. IMPRESSIONS: 1. Postop day #11 status post exploratory laparotomy, postop day #4 status post re-exploratory laparotomy with enterorrhaphy x3 for ischemic small-bowel perforations. 2. Acute pulmonary insufficiency. 3. Acute kidney injury. 4. Acute contraction metabolic alkalosis. 5. Stable acute blood loss anemia. PLAN: 1. Initiate small bowel follow-through to evaluate possible small bowel ileus and exclude any leak from the previous repairs. 2. We will gently rehydrate the patient. We will give the patient a bolus of 5% albumin and monitor urinary output and GFR as endpoint of resuscitation. 3. Increase activity per Physical and Occupational therapy. Above findings and plan discussed with the patient and his at bedside. They both indicated understanding information given. I have answered their questions. Job ID: [id number]
[2018-05-10] MEDS ORDERED: Metoclopramide HCl 10 MG/2 ML VIAL IVP SCH (13:15)
--- NOTE | 2018-05-10 14:19 | PRG ---
DATE OF SERVICE: 05/10/2018 SUBJECTIVE: I am back from this weekend to check on Mr. Tsai. Dr. Singer saw him over the weekend, was able stop the bladder irrigation. He did have some trouble yesterday with some clots occluding his catheter in this morning and the nurses did irrigate out a number of clots and actually become distended. I irrigated him now and I got just a few little clots out and his urine actually is almost crystal clear and this was off bladder irrigation now. Even when he had the clots, the urine itself was not bloody, was more just clots were blocking them. His catheter appears to be in good position. I probably used a couple 100 mL when I irrigated him out today with irrigating syringe. He has had very little come out of his MADHAV drain today, probably 20 mL since the shift started that was a few hours ago. He is extubated now. His vital signs seem to be better. His urine output in general has improved over the weekend and he put out 1650 mL already this morning. His creatinine is 1.6 this morning, was 1.3 yesterday, 1.8 the morning before. PLAN: At this time, I will leave the Caruso catheter, irrigate p.r.n., although it looks like the bleeding is probably stop. The only other thing on exam today, he has had scrotal edema since I have known him, but today checking in the right testicle is quite firm. It may just be a reactive hydrocele, but I am going to ask for the scrotal ultrasound be done to look at this region. I will check on this later in the day. Job ID: [id number]
--- NOTE | 2018-05-10 17:16 | ULT ---
BILATERAL TESTICULAR ULTRASOUND WITH DOPPLER COLOR FLOW AND CEDEÑO SCALE IMAGING AND SPECTRAL ANALYSIS: Date: 05/10/18 CLINICAL INDICATION: Right hemiscrotal/testicular edema. FINDINGS: Doppler evaluation is performed, which reveals flow to each testis. There is asymmetric increased yecenia w documented within the right testis. Within the right testis, there is a complex focus of altered ec hotexture approximating 3 cm in diameter. No evidence of an intratesticular mass on the left. There i s a mild left hydrocele. There is prominent vascularity of the right inguinal canal indicative of beena icocele. As demonstrated, right testicular length is 5.5 cm, and left testicular length 3.1 cm. There is a simple appearing left epididymal cyst measuring 8-9 mm. IMPRESSION: 1. Asymmetric increased size and heterogeneity of the right testis with prominent vascularity. 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 2. Right side varicocele. POS: [facility]
[2018-05-10] MEDS: Metoclopramide HCl 10 MG/2 ML VIAL IVP SCH (17:54)
--- NOTE | 2018-05-10 18:36 | RAD ---
SMALL BOWEL FOLLOW-THROUGH: INDICATIONS: Status post surgery with no return of bowel function. COMPARISON: The exam is compared to a prior KUB, dated 05/10/2018. FINDINGS: On the forestry patrolman images, gas-filled distention of loops of small and large bowel are similar to the anjali rison study performed earlier, at 8:45 a.m. There is a small surgical drain within the lower aspect of the pelvis. A Dobhoff feeding tube tip is seen within the gastric fundus. There is moderate card iomegaly with mild pleural and parenchymal opacity involving both lung bases. There is scattered deg enerative change. Subsequent images, after the administration of Gastrografin contrast, demonstrate slow progression of the Gastrografin contrast through the small bowel, to the level of the right hemicolon, by the 5-kirstin r time paolo. There is a moderate amount of retained stool within the right hemicolon. IMPRESSION: Slow progression of the Gastrografin contrast through mildly dilated loops of small and large bowel s uggest ileus. There is a moderate amount of retained stool within the right hemicolon. POS: ANN
[2018-05-10] MEDS: POTASSIUM ACETATE IV SCH (22:18)
[2018-05-10] MEDS: SODIUM ACETATE IV SCH (22:18)
[2018-05-10] MEDS: POTASSIUM PHOSPHATE IV SCH (22:18)
[2018-05-10] MEDS: [UNRECOGNIZED DRUG - OTHER] IV SCH (22:18)
[2018-05-10 23:12] LABS: Hemoglobin 8.7 g/dL (14.0-18.0)
[2018-05-11] MEDS: Metoclopramide HCl 10 MG/2 ML VIAL IVP SCH ×4 (00:05→17:54)
[2018-05-11 05:39] LABS: #Eosinphils 0.2 thou/uL (0.0-0.7); #Lymphocytes 0.6 thou/uL (1.20-3.40); #Monocytes 0.9 thou/uL (0.11-0.59); #Neutrophils 9.2 thou/uL (1.40-6.50); %Eosinophils 1.4 % (0.0-10.0); %Lymphocytes 5.4 % (21.0-51.0); %Monocytes 8.2 % (0.0-10.0); Hemoglobin 8.4 g/dL (14.0-18.0); Mean Corpuscular HGB CONC 32.5 g/dL (32.0-36.0); Mean Corpuscular Hemoglobin 30.5 pg (27.0-31.0); Mean Corpuscular Volume 93.8 fL (78.0-98.0); Mean Platelet Volume 7.9 fL (7.4-10.4); Platelet Count 574 thou/uL (130-400); Red Blood Cell (RBC) Count 2.76 mill/uL (4.70-6.10); White Blood Cell (WBC) Count 10.8 thou/uL (4.8-10.8)
[2018-05-11] MEDS: Levothyroxine 150 MCG TAB PO SCH (05:58)
[2018-05-11 06:06] LABS: ALT (SGPT) 148 U/L (8-55); AST (SGOT) 213 U/L (5-34); Albumin 2.6 g/dL (3.4-4.8); Alkaline Phosphatase 200 U/L (40-150); Anion Gap 13 mmol/L (10-20); BUN (Urea Nitrogen) 76 mg/dL (8.4-25.7); Calc. Creatinine Clearance 58 mL/min (70-130); Calcium 8.7 mg/dL (7.8-10.44); Carbon Dioxide 31 mmol/L (23-31); Chloride 117 mmol/L (98-107); Estimated GFR-MDRD 45; Globulin 2.7 g/dL (2.4-3.5); Glucose 132 mg/dL (83-110); Potassium 3.1 mmol/L (3.5-5.1); Protein, Total 5.3 g/dL (5.8-8.1); Sodium 158 mmol/L (136-145)
[2018-05-11 06:44] LABS: Actual Bicarbonate (HCO3a) 30.6 mEq/L (22-28); Base Excess (BEa) 7.9 mEq/L (-2.0 to +3.0); CO2 Tension 35.1 mmHg (35.0-45.0); Calcium, Ionized 1.18 mmol/L (1.12-1.30); Carboxyhemoglobin (COHb) 0.3 gm% (0.0-3.0); Hemoglobin (Hb) 8.7 g/dL (14.0-18.0); O2 Tension (PaO2) 86.9 mmHg (> 60.0); Potassium - ABG Lab 3.13 mmol/L (3.70-5.30)
[2018-05-11 06:46] LABS: Puncture Site LRA; pH, Arterial 7.56 (7.35-7.45)
[2018-05-11 06:47] LABS: ALV-art Gradient 225.725 (0-20)
[2018-05-11] MEDS ORDERED: Pancrelipase DR 12000 1 CAP FS PRN (09:40)
[2018-05-11] MEDS ORDERED: Sodium Bicarbonate Tab 325 MG TAB PER TUBE PRN (09:40)
[2018-05-11] MEDS: Bisacodyl 10 MG SUPP PR SCH (09:48)
[2018-05-11] MEDS: Amiodarone 200 MG TAB PO SCH ×3 (09:48→21:03)
[2018-05-11] MEDS: MEROPENEM 1 GM/50 ML 1 GM in Premix Bag 1 BAG IVPB SCH ×2 (09:48→17:56)
[2018-05-11] MEDS: Pantoprazole 40 MG VIAL IVP SCH (09:48)
[2018-05-11] MEDS: Finasteride 5 MG TAB PO SCH (09:48)
[2018-05-11] MEDS: Dextrose 5% in Water 1,000 ML IV SCH (09:49)
[2018-05-11] MEDS: traMADol HCl 50 MG TAB PO PRN (10:10)
[2018-05-11] MEDS: Micafungin 100 MG in Sodium Chloride 0.9% 100 ML IVPB SCH (10:33)
[2018-05-11 11:12] LABS: Phosphorus 3.1 mg/dL (2.3-4.7)
[2018-05-11] MEDS ORDERED: Potassium Phosphate 30 MMOL in Sodium Chloride 0.9% 500 ML IVPB SCH (13:00)
--- NOTE | 2018-05-11 13:15 | PRG ---
DATE OF SERVICE: 05/11/2018 SUBJECTIVE: Mr. Tsai is an 82-year-old man, who is postoperative day #12 status post exploratory laparotomy, extensive adhesiolysis with segmental small bowel resection for closed-loop small-bowel obstruction and postop day #4 status post re-exploratory laparotomy with enterorrhaphy x3. The patient is awake and slightly confused. He has had multiple loose bowel movements overnight, some of which were bloody. Urinary output has been adequate. He is on no vasopressor or inotropic support at the moment. Dopamine was successfully weaned off last night. OBJECTIVE: VITAL SIGNS: Current vital signs include blood pressure 115/65, pulse is 74, respiratory rate is 21, temperature is 98.5 degrees Fahrenheit, maximum temperature in last 24 hours is 99.1 degrees Fahrenheit. Oxygen saturation is 96% on 50% face mask. HEENT: Pupils are equal, round, and reactive to light and accommodation. HEART: Reveals irregular rate and irregular rhythm. LUNGS: Clear to auscultation bilaterally. Breathing, regular and unlabored. ABDOMEN: Soft and obese. Fascia incision remains intact. There is no gross purulence on incisional wound. Harsh-Parnell drain returns scant amount of serous fluid overnight. The patient clearly has no gross peritoneal signs on examination. Bowel sounds in all 4 quadrants are normoactive. EXTREMITIES: Revealed 2+ radial and pedal pulses bilaterally. There is trace bilateral ankle edema present. Scrotal edema is resolving. Indwelling Caruso cath returns blood tinged urine. NEUROLOGIC: Reveals no focal deficits present. LABORATORY FINDINGS: Today include CBC with 10,800 white blood cells, hemoglobin and hematocrit 8.4 and 25.8 respectively. Platelet count 574,000. Chemistry; BMP 158, potassium 3.1, chloride is 117, bicarb is 31, BUN 76, creatinine is 1.51, glucose is 132, phosphorus is 3.1, magnesium is 2.1. AST and ALT are both elevated at 213 and 148 respectively. Alkaline phosphatase is also elevated at 200. Total bilirubin is normal at 1.0. IMPRESSION: 1. Postoperative day #12, status post exploratory laparotomy with extensive adhesiolysis, segmental small bowel resection with primary anastomosis. Postop day #4 status post re-exploratory laparotomy and enterorrhaphy x3 for ischemic small-bowel perforations. 2. Resolving acute adynamic ileus. 3. Acute metabolic encephalopathy. 4. Stable acute blood loss anemia. 5. Acute contraction metabolic alkalosis. 6. Resolving acute kidney injury with predominant prerenal azotemia. 7. Acute hypokalemia. 8. Acute hypophosphatemia. 9. Acute hypernatremia. PLAN: 1. Correct abnormal electrolytes. 2. We will increase total free water intake and monitor serum sodium as endpoint of resuscitation here. 3. Monitor urinary output as the acute kidney injury resolves. 4. Increase activity per Physical and Occupational Therapy. 5. We will initiate antifungal therapy as I suspect the patient's metabolic encephalopathy is likely secondary to fungemia given the recent ischemic small bowel perforations. 6. Continue with broad-spectrum antibiotic therapy in the interim. 7. Above findings and plan has been discussed with the patient's at bedside. She indicated understanding of the information given. I have answered their questions. Job ID: [id number]
[2018-05-11] MEDS ORDERED: MEROPENEM 1 GM/50 ML 1 GM in Premix Bag 1 BAG IVPB SCH (14:00)
--- NOTE | 2018-05-11 14:01 | PRG ---
DATE OF SERVICE: 05/11/2018 SUBJECTIVE: Mr. Tsai is off the ventilator. He is on oxygen by face mask and he is easily arousable. OBJECTIVE: VITAL SIGNS: Blood pressure 123/73, pulse is 74, it is a ventricular paced rhythm. LUNGS: Clear. CARDIAC: Normal S1, normal S2. ABDOMEN: Soft and nontender. EXTREMITIES: There is mild to moderate peripheral edema. SKIN: Warm and dry. PERTINENT LABORATORIES: Hemoglobin is 8.4, hematocrit 25.8. Creatinine is 1.5. Potassium is 3.1. CONCLUSION: Diastolic congestive heart failure appears stable, probably somewhat volume overloaded. Rhythm is well controlled. PLAN: 1. We will reduce amiodarone to 200 mg twice a day. He was taken off the intravenous amiodarone yesterday. 2. Replete potassium. 3. Consideration for single dose of diuretics if okay with Dr. Che. Job ID: [id number]
[2018-05-11] MEDS ORDERED: [UNRECOGNIZED DRUG - OTHER] IV SCH ×2 (22:00→23:00)
[2018-05-11] MEDS ORDERED: POTASSIUM ACETATE IV SCH ×2 (22:00→23:00)
[2018-05-11] MEDS ORDERED: POTASSIUM CHLORIDE IV SCH ×2 (22:00→23:00)
[2018-05-11] MEDS ORDERED: POTASSIUM PHOSPHATE IV SCH ×2 (22:00→23:00)
[2018-05-11] MEDS: POTASSIUM PHOSPHATE IV SCH (23:01)
[2018-05-11] MEDS: [UNRECOGNIZED DRUG - OTHER] IV SCH (23:01)
[2018-05-11] MEDS: SODIUM ACETATE IV SCH (23:01)
[2018-05-11] MEDS: POTASSIUM ACETATE IV SCH (23:01)
[2018-05-12] MEDS: MEROPENEM 1 GM/50 ML 1 GM in Premix Bag 1 BAG IVPB SCH ×3 (02:31→17:12)
[2018-05-12 05:26] LABS: Band 7 % (5-11); Eosinophils 1 % (0-10); Hemoglobin 8.9 g/dL (14.0-18.0); Lymphocytes 8 % (21-51); MDiff Complete? YES; Mean Corpuscular HGB CONC 31.5 g/dL (32.0-36.0); Mean Corpuscular Hemoglobin 29.7 pg (27.0-31.0); Monocytes 11 % (0-10); Neutrophil 73 % (42-75); Platelet Count 604 thou/uL (130-400); Platelet Morphology Comment Appears Increased; RBC Distribution Width 14.1 % (11.5-14.5); Red Blood Cell (RBC) Count 2.99 mill/uL (4.70-6.10)
[2018-05-12 05:31] LABS: Anion Gap 10 mmol/L (10-20); BUN (Urea Nitrogen) 59 mg/dL (8.4-25.7); Calc. Creatinine Clearance 74 mL/min (70-130); Calcium 8.4 mg/dL (7.8-10.44); Carbon Dioxide 32 mmol/L (23-31); Chloride 119 mmol/L (98-107); Estimated GFR-MDRD 59; Glucose 135 mg/dL (83-110); Phosphorus 2.8 mg/dL (2.3-4.7); Potassium 3.1 mmol/L (3.5-5.1); Sodium 158 mmol/L (136-145)
[2018-05-12] MEDS ORDERED: Potassium Phosphate 30 MMOL in Sodium Chloride 0.9% 250 ML 250 ML IVPB SCH (07:15)
[2018-05-12] MEDS: Dextrose 5% in Water 1,000 ML IV SCH ×3 (07:27→22:38)
[2018-05-12] MEDS: Amiodarone 200 MG TAB PO SCH ×3 (08:38→20:44)
[2018-05-12] MEDS: Levothyroxine 150 MCG TAB PO SCH (08:38)
[2018-05-12] MEDS: Finasteride 5 MG TAB PO SCH (08:38)
[2018-05-12] MEDS: Pantoprazole 40 MG VIAL IVP SCH (09:37)
[2018-05-12] MEDS: Saccharomyces boulardii 250 MG CAP PO SCH (09:38)
[2018-05-12] MEDS: Micafungin 100 MG in Sodium Chloride 0.9% 100 ML IVPB SCH (09:40)
--- NOTE | 2018-05-12 10:14 | PRG ---
DATE OF SERVICE: 05/12/2018 SUBJECTIVE: Mr. Tsai is an 82-year-old man, postoperative day #13, status post exploratory laparotomy, extensive adhesiolysis with segmental small bowel resection for closed-loop small bowel obstruction. Postoperative day #5, status post re-exploratory laparotomy with enterotomy x3 for ischemic small bowel perforations. The patient is on day 6 of IV antibiotic therapy for Klebsiella pneumoniae bacteremia. He is day 1 status post initiation of micafungin antifungal. He is more awake and alert today. He moves all extremities and Fritz Coma Scale is E4, M6, V5. He tolerates trophic tube feeds and has been having multiple loose bowel movements. Urinary output remains adequate. OBJECTIVE: VITAL SIGNS: This morning includes blood pressure 114/63, pulse is 74, respiratory rate is 22, temperature is 98.8 degrees Fahrenheit, and oxygen saturation 97% on 3 L by nasal cannula oxygen. HEENT: Pupils are equal, round, and reactive to light and accommodation. He has no jugular venous distention noted. HEART: Reveals irregular rate and irregular rhythm. LUNGS: Clear to auscultation bilaterally. Breathing, regular and nonlabored. ABDOMEN: Soft and obese with minimum tenderness to palpation. Incisional wound remains intact. Wound VAC in place. Serous fluid output noted in scant amount. Harsh-Parnell drain returns very scant amount of serous fluid as well. Bowel sounds in all 4 quadrants appear normoactive. EXTREMITIES: Reveal 2 +radial and pedal pulses bilaterally. ankle edema is present. GENITOURINARY: The patient still has gross hematuria and a Caruso catheter. LABORATORY FINDINGS: Today includes a CBC with 10,000 white blood cells, hemoglobin and hematocrit 8.9 and 28.1 respectively. Platelet count is 604,000. Metabolic profile; sodium 158, potassium 3.1, chloride is 119, bicarb is 32, BUN 59, creatinine is 1.19, glucose is 135, magnesium 2.0, phosphorus is 2.8. IMPRESSIONS: 1. Postoperative day #13, status post exploratory laparotomy with extensive adhesiolysis and segmental small bowel resection. Postoperative day #5, status post re-exploratory laparotomy with enterotomy x3 for ischemic small bowel perforations. 2. Nearly resolved acute kidney injury. 3. Acute hypokalemia. 4. Acute hypophosphatemia. 5. Acute hypernatremia. 6. Resolving acute metabolic encephalopathy. PLAN: 1. Correct abnormal electrolytes. 2. Continue to increase free water intake and monitor serum sodium as endpoint of resuscitation. 3. Complete 10-day course of antibiotic therapy for Klebsiella pneumoniae bacteremia. 4. Increase activity per Physical and Occupational therapy. 5. We will start the patient on clear liquid diet today and ask Speech and Language pathologist to evaluate the patient for speech, cognition, and swallow. 6. The patient has remained hemodynamically stable and will therefore be transferred to intermediate care unit in anticipation to transfer to inpatient rehabilitation once insurance authorization and bed availability have been secured. 7. Above findings and plan have been discussed with the patient and his at bedside. They both indicated understanding information given. 8. I have answered their questions. Job ID: [id number]
[2018-05-12] MEDS ORDERED: [UNRECOGNIZED DRUG - OTHER] IV SCH (22:00)
[2018-05-12] MEDS ORDERED: POTASSIUM PHOSPHATE IV SCH (22:00)
[2018-05-12] MEDS ORDERED: POTASSIUM ACETATE IV SCH (22:00)
[2018-05-12] MEDS ORDERED: POTASSIUM CHLORIDE IV SCH (22:00)
[2018-05-13] MEDS: MEROPENEM 1 GM/50 ML 1 GM in Premix Bag 1 BAG IVPB SCH ×3 (02:07→17:55)
[2018-05-13 04:38] LABS: Band 6 % (5-11); Eosinophils 3 % (0-10); Hemoglobin 8.5 g/dL (14.0-18.0); Lymphocytes 9 % (21-51); MDiff Complete? YES; Mean Corpuscular HGB CONC 31.5 g/dL (32.0-36.0); Mean Corpuscular Volume 95.3 fL (78.0-98.0); Monocytes 8 % (0-10); Neutrophil 74 % (42-75); Platelet Count 600 thou/uL (130-400); Red Blood Cell (RBC) Count 2.82 mill/uL (4.70-6.10); White Blood Cell (WBC) Count 11.9 thou/uL (4.8-10.8)
[2018-05-13 04:44] LABS: ALT (SGPT) 149 U/L (8-55); AST (SGOT) 108 U/L (5-34); Albumin 2.4 g/dL (3.4-4.8); Alkaline Phosphatase 189 U/L (40-150); Anion Gap 9 mmol/L (10-20); BUN (Urea Nitrogen) 47 mg/dL (8.4-25.7); Bilirubin, Total 1.2 mg/dL (0.2-1.2); Calc. Creatinine Clearance 79 mL/min (70-130); Calcium 8.1 mg/dL (7.8-10.44); Carbon Dioxide 31 mmol/L (23-31); Chloride 117 mmol/L (98-107); Estimated GFR-MDRD 63; Globulin 2.6 g/dL (2.4-3.5); Glucose 136 mg/dL (83-110); Magnesium 1.8 mg/dL (1.6-2.6); Phosphorus 2.5 mg/dL (2.3-4.7); Potassium 3.3 mmol/L (3.5-5.1); Sodium 154 mmol/L (136-145)
[2018-05-13] MEDS: Levothyroxine 150 MCG TAB PO SCH (05:33)
[2018-05-13] MEDS ORDERED: Magnesium 2 GM/50 ML 2 GM in Premix Bag 1 BAG IVPB SCH (06:00)
[2018-05-13] MEDS ORDERED: Potassium Phosphate 30 MMOL in Sodium Chloride 0.9% 500 ML IVPB SCH (06:00)
[2018-05-13] MEDS ORDERED: Potassium Phosphate 30 MMOL in Sodium Chloride 0.9% 250 ML 250 ML IVPB SCH (06:30)
[2018-05-13] MEDS: traMADol HCl 50 MG TAB PO PRN (09:11)
[2018-05-13] MEDS: Amiodarone 200 MG TAB PO SCH ×3 (09:17→20:17)
[2018-05-13] MEDS: Pantoprazole 40 MG VIAL IVP SCH (09:18)
[2018-05-13] MEDS: Finasteride 5 MG TAB PO SCH (09:18)
[2018-05-13] MEDS: Saccharomyces boulardii 250 MG CAP PO SCH (09:18)
[2018-05-13] MEDS: Sodium Chloride 0.9% (PF) 10 ML VIAL FS PRN (09:18)
[2018-05-13] MEDS: Micafungin 100 MG in Sodium Chloride 0.9% 100 ML IVPB SCH (09:25)
[2018-05-13] MEDS: Dextrose 5% in Water 1,000 ML IV SCH (12:01)
--- NOTE | 2018-05-13 15:36 | PRG ---
DATE OF SERVICE: 05/13/2018 SUBJECTIVE: Mr. Tsai is an 82-year-old man, postoperative day #14, status post exploratory laparotomy, extensive adhesiolysis with segmental small bowel resection for closed-loop small-bowel obstruction. He is also postop day #5, status post re-exploratory laparotomy with enterotomy x3 for ischemic small-bowel perforation. Currently, the patient is on day #7 of IV antibiotic therapy with meropenem for Klebsiella pneumonia bacteremia secondary to UTI. He is also on day 2 of micafungin antifungal treatment. Currently, fungal cultures are pending. This morning, he moves all extremities and has a GCS of E4, M6, V5. Today, he seems less alert, and little more out of it compared to yesterday. We were informed by and nurse that he has just received a dose of tramadol for pain and prior to this dose, he was more awake. Slept well overnight, tolerating his CPAP, BiPAP well. He has also been tolerating trophic feeds and has had been having multiple loose bowel movements with old dark blood. Urinary output is difficult to determine if it is adequate at this time due to continuos bladder irrigation. Aside from this, there were no acute events overnight. OBJECTIVE: VITAL SIGNS: Temperature 97.8, pulse 77, respirations 24, O2 saturation 93% on 3 L of nasal cannula, blood pressure 104/69, MAP 80. HEENT: Pupils are equal, round, react to light and accommodation. He has no JVD. HEART: Regular rate with irregular rhythm. No murmurs. LUNGS: Clear to auscultation bilaterally. Breathing slightly rapid, but it is nonlabored. No acute severe respiratory distress. ABDOMEN: Soft and obese with minimal tenderness to palpation. Minimal distention. Incisional wound remains intact with wound VAC in place. Inspection after wound VAC is removed reveals a midline abdominal incision that is healing well. Instructions were given to wound care team to make sure to pack down to the fascia in order to appropriately heal bottom up. Bowel sounds in all 4 quadrants appear normoactive. EXTREMITIES: Moves all 4 extremities, neurovascularly intact. Minimal ankle edema present. 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 Currently, continues bladder irrigation is running. LABORATORY FINDINGS: CBC includes WBC 11.9, hemoglobin 8.5, hematocrit 26.9, MCV 95.3, and platelets 600. Chemistry includes sodium 154, potassium 3.3, chloride 117, carbon dioxide 31, anion gap 9, BUN 47, creatinine 1.12, GFR 63, AST 108, ALT 149, ALP 189. Ammonia 20. BNP 357. Procalcitonin 0.77. Microbiology; C diff stool is negative for antigen and toxin. Blood culture; no growth to date at 48 hours. Fungal culture currently pending. DIAGNOSTIC IMAGING: There is no new diagnostic imaging to review today. ASSESSMENT: 1. Postoperative day #14 status post exploratory laparotomy with extensive adhesiolysis and segmental small bowel resection. Postop day #6, status post re-exploratory laparotomy with enterotomy x3 for ischemic small-bowel perforation. 2. Acute kidney injury, resolved. 3. Acute hypokalemia. 4. Acute hypophosphatemia. 5. Acute hypomagnesemia. 6. Elevated LFTs. 7. Elevated BNP. 8. Acute hypernatremia, improved. 9. Resolving acute metabolic encephalopathy. 10. Acute anemia, secondary to acute blood loss from surgeries, likely also delusional in the setting of massive fluid resuscitation. 11. Leukocytosis, new. PLAN: 1. We will replace potassium, phosphate, magnesium. 2. Acute hypernatremia: Continue one half-normal saline at 75 mL an hour. The patient's sodium is appropriately lowering, will continue to monitor and not proceed with aggressive or not increase infusion rate due to history of heart failure. 3. Continue for completion of 10-day course of antibiotic therapy with meropenem for Klebsiella pneumoniae bacteremia. 4. Encouraged an increased physical and occupational therapy to mobilize the patient at bedside. 5. Change in mentation, likely medication-induced from tramadol. We will continue to monitor the patient for any acute changes. 6. We will continue diet as it is in order to allow for continued bowel rest. 7. The patient is hemodynamically stable and will continue care in the IMCU. 8. Anemia: Continue to monitor daily H and H with daily CBC. 9. Instructed the wound care team to continue with adequate packing in order to the midline abdominal incisional wound to heal appropriately. 10. Leukocytosis. The patient is afebrile. No increase in neutrophils. Likely this is not secondary due to infection, however. Given the patient's complicated history, we will monitor with a.m. CBC. Should there be an increase in white count, consider re-infection workup. Currently, the patient is on meropenem and micafungin, with negative blood cultures. Currently, pending fungal cultures. Consider fungemia in this setting. 11. Currently, the patient's disposition includes anticipation of transfer to an inpatient rehabilitation. 12. KOKI, resolved. Continue the patient on one-half normal saline fluids. We will not diurese at this time in order to prevent precipitating another prerenal KOKI . We will continue to monitor for signs of fluid overload and should patient start exhibiting this, we can give him diuretics. 13. The patient was seen and assessed by Dr. Mateo Che, who also discussed this with the patient and his , who were in agreement with the plan above. All questions have been answered. Job ID: [id number] MTDD
[2018-05-13] MEDS: POTASSIUM CHLORIDE IV SCH (22:36)
[2018-05-13] MEDS: [UNRECOGNIZED DRUG - OTHER] IV SCH (22:36)
[2018-05-13] MEDS: POTASSIUM PHOSPHATE IV SCH (22:36)
[2018-05-13] MEDS: POTASSIUM ACETATE IV SCH (22:36)
[2018-05-14] MEDS: MEROPENEM 1 GM/50 ML 1 GM in Premix Bag 1 BAG IVPB SCH ×3 (02:14→17:39)
[2018-05-14] MEDS: Levothyroxine 150 MCG TAB PO SCH (05:15)
[2018-05-14 05:48] LABS: #Eosinphils 0.4 thou/uL (0.0-0.7); #Monocytes 0.7 thou/uL (0.11-0.59); #Neutrophils 9.2 thou/uL (1.40-6.50); %Basophils 0.3 % (0.0-1.0); %Eosinophils 3.2 % (0.0-10.0); %Monocytes 6.2 % (0.0-10.0); %Neutrophils 81.3 % (42.0-75.0); Mean Corpuscular HGB CONC 31.4 g/dL (32.0-36.0); Mean Corpuscular Hemoglobin 29.8 pg (27.0-31.0); Mean Corpuscular Volume 95.1 fL (78.0-98.0); Mean Platelet Volume 8.1 fL (7.4-10.4); Platelet Count 563 thou/uL (130-400); Red Blood Cell (RBC) Count 3.01 mill/uL (4.70-6.10); White Blood Cell (WBC) Count 11.3 thou/uL (4.8-10.8)
[2018-05-14 06:03] LABS: Anion Gap 8 mmol/L (10-20); BUN (Urea Nitrogen) 40 mg/dL (8.4-25.7); Calc. Creatinine Clearance 101 mL/min (70-130); Calcium 7.8 mg/dL (7.8-10.44); Carbon Dioxide 29 mmol/L (23-31); Chloride 114 mmol/L (98-107); Estimated GFR-MDRD 84; Glucose 140 mg/dL (83-110); Magnesium 1.9 mg/dL (1.6-2.6); Phosphorus 2.6 mg/dL (2.3-4.7); Potassium 3.4 mmol/L (3.5-5.1); Sodium 148 mmol/L (136-145)
[2018-05-14] MEDS: Dextrose 5% in Water 1,000 ML IV SCH ×2 (06:43→13:40)
[2018-05-14] MEDS ORDERED: Potassium Chloride 40 MEQ, Magnesium Sulfate 2 GM in Sodium Chloride 0.9% 250 ML 250 ML IVPB SCH (09:00)
[2018-05-14] MEDS: Pantoprazole 40 MG VIAL IVP SCH (09:56)
[2018-05-14] MEDS: Amiodarone 200 MG TAB PO SCH ×3 (09:56→21:50)
[2018-05-14] MEDS: Finasteride 5 MG TAB PO SCH (09:56)
[2018-05-14] MEDS: Saccharomyces boulardii 250 MG CAP PO SCH (09:56)
[2018-05-14] MEDS: Micafungin 100 MG in Sodium Chloride 0.9% 100 ML IVPB SCH (09:57)
[2018-05-14] MEDS: traMADol HCl 50 MG TAB PO PRN (10:15)
--- NOTE | 2018-05-14 19:01 | PRG ---
DATE OF SERVICE: 05/14/2018 SUBJECTIVE: The patient is currently postop day #15 status post exploratory laparotomy, extensive adhesiolysis with segmental small bowel resection for closed-loop small bowel obstruction, who is also postop day #5 status post re-exploratory laparotomy with enterotomy x3 for ischemic small bowel perforations, who is on day 8 of his IV antibiotic therapy and day 2 of his antifungal treatment. The patient remains in the IMCU. He is doing better this morning and according to the rounding team, the patient's mentation is much better. The agrees that the patient is doing much better this morning than he was yesterday morning. The patient is conversant with Dr. Che, and denies any pain at this time. OBJECTIVE: VITAL SIGNS: Temperature is 97.4, heart rate 74, blood pressure 108/64, respirations 22, oxygen saturation 99% on 3 L via nasal cannula. GENERAL: The patient is resting comfortably in bed. He is awake, alert, and conversant and appears appropriate. The patient does have some confusion, but is easily reoriented. LUNGS: Clear to auscultation with good inspiratory and expiratory effort. HEART: Regular rate and rhythm. ABDOMEN: Soft, flat, nontender with very active bowel sounds. EXTREMITIES: Neurovascularly intact x4. LABORATORY FINDINGS: White blood cell count 11.3, hemoglobin 9.0, hematocrit 28.7, platelets 563. Sodium 148, potassium 3.4, chloride 114, CO2 of 29, BUN 40, creatinine 0.87, glucose 140, magnesium 1.9, phosphorus 2.6. There are no radiographs reviewed this morning. ASSESSMENT: 1. Status post exploratory laparotomy with above procedures. 2. Acute kidney injury, resolved. 3. Acute hypernatremia, improving. 4. Resolving acute metabolic encephalopathy. PLAN: Plan will be to continue supportive care. We will maintain his fluids as current. He will remain with trickle tube feeds and TPN. We will ask Speech to see the patient and evaluate him for a p.o. diet, likely this will be full liquids at the most from our standpoint. Evaluation and examination were done with Dr. Che this morning during rounds. Job ID: [id number]
[2018-05-14] MEDS: POTASSIUM ACETATE IV SCH (21:50)
[2018-05-14] MEDS: POTASSIUM CHLORIDE IV SCH (21:50)
[2018-05-14] MEDS: POTASSIUM PHOSPHATE IV SCH (21:50)
[2018-05-14] MEDS: [UNRECOGNIZED DRUG - OTHER] IV SCH (21:50)
--- NOTE | 2018-05-15 01:16 | EKG ---
Test Reason : POSS PACER PROB Blood Pressure : / mmHG Vent. Rate : 074 BPM Atrial Rate : 071 BPM P-R Int : 000 ms QRS Dur : 156 ms QT Int : 428 ms P-R-T Axes : 000 211 041 degrees QTc Int : 475 ms Ventricular-paced rhythm Abnormal ECG When compared with ECG of 30-SEP-2017 16:45, Vent. rate has increased BY 3 BPM Confirmed by LINNETTE WHITE M.D. ([id number] on 05/15/2018 1:15:41 AM Referred By: ROYCE Confirmed By:LINNETTE WHITE M.D.
[2018-05-15] MEDS: MEROPENEM 1 GM/50 ML 1 GM in Premix Bag 1 BAG IVPB SCH ×3 (02:15→21:34)
[2018-05-15] MEDS: Dextrose 5% in Water 1,000 ML IV SCH ×2 (03:14→22:10)
[2018-05-15 05:30] LABS: #Eosinphils 0.3 thou/uL (0.0-0.7); #Monocytes 0.6 thou/uL (0.11-0.59); #Neutrophils 8.9 thou/uL (1.40-6.50); %Basophils 0.2 % (0.0-1.0); %Eosinophils 2.5 % (0.0-10.0); %Lymphocytes 9.5 % (21.0-51.0); %Monocytes 5.8 % (0.0-10.0); Hemoglobin 7.8 g/dL (14.0-18.0); Mean Corpuscular HGB CONC 32.4 g/dL (32.0-36.0); Mean Corpuscular Hemoglobin 30.3 pg (27.0-31.0); Mean Corpuscular Volume 93.6 fL (78.0-98.0); Mean Platelet Volume 7.7 fL (7.4-10.4); Platelet Count 548 thou/uL (130-400); Red Blood Cell (RBC) Count 2.56 mill/uL (4.70-6.10); White Blood Cell (WBC) Count 10.9 thou/uL (4.8-10.8)
[2018-05-15 05:51] LABS: Anion Gap 9 mmol/L (10-20); BUN (Urea Nitrogen) 34 mg/dL (8.4-25.7); Calc. Creatinine Clearance 110 mL/min (70-130); Calcium 7.5 mg/dL (7.8-10.44); Carbon Dioxide 26 mmol/L (23-31); Chloride 113 mmol/L (98-107); Estimated GFR-MDRD Greater than 90; Glucose 134 mg/dL (83-110); Magnesium 2.1 mg/dL (1.6-2.6); Phosphorus 2.2 mg/dL (2.3-4.7); Potassium 3.7 mmol/L (3.5-5.1); Sodium 144 mmol/L (136-145)
[2018-05-15] MEDS: Levothyroxine 150 MCG TAB PO SCH (06:11)
[2018-05-15] MEDS: traMADol HCl 50 MG TAB PO PRN (09:58)
[2018-05-15] MEDS: Finasteride 5 MG TAB PO SCH (10:02)
[2018-05-15] MEDS: Saccharomyces boulardii 250 MG CAP PO SCH (10:02)
[2018-05-15] MEDS: Amiodarone 200 MG TAB PO SCH ×3 (10:02→21:26)
[2018-05-15] MEDS: Pantoprazole 40 MG VIAL IVP SCH (10:02)
[2018-05-15] MEDS: Ascorbic Acid 500 mg Chewable Tablet PO SCH (10:03)
--- NOTE | 2018-05-15 12:18 | PRG ---
DATE OF SERVICE: 05/15/2018 SUBJECTIVE: The patient remains in the IMCU. Does reported last night, he did not sleep well until about 4-5 this morning when he was able to get comfortable and keep his CPAP on, which time he seemed to sleep much better. The patient reportedly had a small bowel movement yesterday. He continues to tolerate his trickle tube feeds. OBJECTIVE: VITAL SIGNS: Temperature is 98.2, heart rate 78, blood pressure 104 /69, respirations 14, oxygen saturation 100% on 2 L via nasal cannula. GENERAL: The patient appears comfortable in bed. He is wearing his CPAP/BiPAP mask and tolerating this. The patient will open his eyes and is somewhat conversant , but does still appear confused. The patient appears slightly less alert than he did yesterday, but again in light of not sleeping until recently, this to be suspected. The patient interacted with myself and his daughter, specifically with her. He was appropriate. He did ask for Dr. Che. LUNGS: Clear to auscultation with good inspiratory and expiratory effort. HEART: Regular rate and rhythm. ABDOMEN: Soft, flat, nontender with active bowel sounds. EXTREMITIES: Neurovascularly intact x4. LABORATORY FINDINGS: White blood cell count 10.9, hemoglobin 7.8, hematocrit 23.9, platelets 548. Sodium 144, potassium 3.7, chloride 113, CO2 of 26, BUN 34, creatinine 0.80, glucose 134, magnesium 2.1, phosphorus 2.2. There are no radiographs reviewed this morning. ASSESSMENT: 1. Status post exploratory laparotomy with extensive adhesiolysis with segmental small bowel resection for closed-loop small-bowel obstruction and return to the OR for re-exploratory laparotomy with enterotomy x3 for ischemic small-bowel perforations. 2. Acute kidney injury, resolved. 3. Acute hyponatremia, resolved. 4. Resolving acute metabolic encephalopathy. 5. Acute blood loss anemia. PLAN: Plan will be to continue supportive care. We will transfuse one unit PRBCs today. It is noted that the patient is still max assist on working with therapy and will likely not be approved for rehab facility and I discussed with the daughter this morning the likelihood the patient may require LTAC placement. We will discuss this with nurse case management to be prepared to explore this option if rehab is declined. The daughter states that she would prefer an LTAC in the [place] area. We will pass this on to the case briefer. Job ID: [id number] MTDD
[2018-05-15] MEDS: Micafungin 100 MG in Sodium Chloride 0.9% 100 ML IVPB SCH (15:31)
[2018-05-15] MEDS: Ferrous Sulfate 325 MG TAB PO SCH (18:05)
[2018-05-15] MEDS: [UNRECOGNIZED DRUG - OTHER] IV SCH (22:10)
[2018-05-15] MEDS: POTASSIUM ACETATE IV SCH (22:10)
[2018-05-15] MEDS: POTASSIUM CHLORIDE IV SCH (22:10)
[2018-05-15] MEDS: POTASSIUM PHOSPHATE IV SCH (22:10)
[2018-05-16] MEDS: MEROPENEM 1 GM/50 ML 1 GM in Premix Bag 1 BAG IVPB SCH ×3 (01:36→16:56)
[2018-05-16] MEDS: Levothyroxine 150 MCG TAB PO SCH (06:24)
[2018-05-16 09:05] LABS: #Eosinphils 0.3 thou/uL (0.0-0.7); #Monocytes 0.8 thou/uL (0.11-0.59); #Neutrophils 9.8 thou/uL (1.40-6.50); %Basophils 0.4 % (0.0-1.0); %Eosinophils 2.8 % (0.0-10.0); %Monocytes 6.4 % (0.0-10.0); %Neutrophils 82.4 % (42.0-75.0); Hemoglobin 8.6 g/dL (14.0-18.0); Mean Corpuscular Hemoglobin 30.1 pg (27.0-31.0); Mean Corpuscular Volume 94.2 fL (78.0-98.0); Platelet Count 542 thou/uL (130-400); Red Blood Cell (RBC) Count 2.85 mill/uL (4.70-6.10); White Blood Cell (WBC) Count 11.9 thou/uL (4.8-10.8)
[2018-05-16 09:22] LABS: Anion Gap 11 mmol/L (10-20); BUN (Urea Nitrogen) 29 mg/dL (8.4-25.7); Calc. Creatinine Clearance 114 mL/min (70-130); Calcium 7.6 mg/dL (7.8-10.44); Carbon Dioxide 22 mmol/L (23-31); Chloride 110 mmol/L (98-107); Estimated GFR-MDRD Greater than 90; Glucose 135 mg/dL (83-110); Magnesium 1.9 mg/dL (1.6-2.6); Phosphorus 2.4 mg/dL (2.3-4.7); Potassium 4.1 mmol/L (3.5-5.1); Sodium 139 mmol/L (136-145)
[2018-05-16] MEDS: Pantoprazole 40 MG VIAL IVP SCH (10:27)
[2018-05-16] MEDS: Finasteride 5 MG TAB PO SCH (10:28)
[2018-05-16] MEDS: Amiodarone 200 MG TAB PO SCH ×3 (10:28→20:36)
[2018-05-16] MEDS: Saccharomyces boulardii 250 MG CAP PO SCH (10:28)
[2018-05-16] MEDS: Ferrous Sulfate 325 MG TAB PO SCH ×2 (10:28→15:55)
[2018-05-16] MEDS: Ascorbic Acid 500 mg Chewable Tablet PO SCH (10:28)
[2018-05-16] MEDS: Micafungin 100 MG in Sodium Chloride 0.9% 100 ML IVPB SCH (10:29)
[2018-05-16] MEDS: Dextrose 5% in Water 1,000 ML IV SCH (12:23)
--- NOTE | 2018-05-16 12:58 | PRG ---
DATE OF SERVICE: 05/16/2018 SUBJECTIVE: The patient remains in the IMCU. He had no reported issues overnight. He has definite return of bowel function, tolerating his trickle tube feeds and TPN. The patient slept reportedly comfortably with his CPAP on and it was removed this morning, and he continues to oxygenate very well. Family reports that he fell asleep approximately an hour prior to me entering the room, but he was at his current baseline. He sleeps primarily, but when awake, will interact with his family. PHYSICAL EXAMINATION: VITAL SIGNS: Temperature 98.5, heart rate 78, blood pressure 110/55, respirations 23, and oxygen saturation 100% on 2 L via nasal cannula. GENERAL: The patient is currently resting comfortably in bed. He appears in no distress and is asleep, but he will open his eyes to verbal stimuli for me. LUNGS: Clear to auscultation with good inspiratory and expiratory effort. HEART: Regular rate and rhythm. ABDOMEN: Soft, flat and nontender with active bowel sounds. His midline incision wound VAC appears to be functioning properly and shows no signs of redness. EXTREMITIES: Have about 1+ edema. Otherwise, neurovascularly intact. LABORATORY FINDINGS: White blood cell count 11.9, hemoglobin 8.6, hematocrit 26.9, and platelets 542. Sodium 139, potassium 4.1, chloride 110, CO2 of 22, BUN 29, creatinine 0.77, glucose 135, magnesium 1.9, and phosphorus 2.4. There are no radiographs to review this morning. ASSESSMENT AND PLAN: 1. Status post exploratory laparotomy with extensive adhesiolysis with segmental small bowel resection for closed loop small bowel obstruction and return to operating room for re-exploratory laparotomy with enterotomy x3 for ischemic small-bowel perforations. 2. Acute hyponatremia, resolved. 3. Acute kidney injury, resolved. 4. Resolving acute metabolic encephalopathy. 5. Acute blood loss anemia, improved. PLAN: Plan will be to continue supportive care. We will discontinue his TPN. We will advance his tube feeds and request dietitians to notify of his goal rate now, and await placement decision. Of note, after rounding on other patients, I returned to the patient's room and he was out of bed into the neuro chair. Job ID: [id number]
[2018-05-17] MEDS: MEROPENEM 1 GM/50 ML 1 GM in Premix Bag 1 BAG IVPB SCH ×3 (01:35→18:39)
[2018-05-17 04:53] LABS: #Basophils 0.1 thou/uL (0.0-0.2); #Eosinphils 0.2 thou/uL (0.0-0.7); #Monocytes 0.8 thou/uL (0.11-0.59); #Neutrophils 8.2 thou/uL (1.40-6.50); %Basophils 0.6 % (0.0-1.0); %Eosinophils 1.8 % (0.0-10.0); %Lymphocytes 9.4 % (21.0-51.0); %Monocytes 8.1 % (0.0-10.0); %Neutrophils 80.1 % (42.0-75.0); Hemoglobin 8.6 g/dL (14.0-18.0); Mean Corpuscular HGB CONC 32.4 g/dL (32.0-36.0); Mean Corpuscular Hemoglobin 30.5 pg (27.0-31.0); Mean Corpuscular Volume 94.2 fL (78.0-98.0); Mean Platelet Volume 8.1 fL (7.4-10.4); Platelet Count 508 thou/uL (130-400); RBC Distribution Width 14.1 % (11.5-14.5); White Blood Cell (WBC) Count 10.3 thou/uL (4.8-10.8)
[2018-05-17 05:13] LABS: Anion Gap 10 mmol/L (10-20); BUN (Urea Nitrogen) 30 mg/dL (8.4-25.7); Calc. Creatinine Clearance 113 mL/min (70-130); Calcium 7.8 mg/dL (7.8-10.44); Carbon Dioxide 24 mmol/L (23-31); Chloride 112 mmol/L (98-107); Estimated GFR-MDRD Greater than 90; Glucose 96 mg/dL (83-110); Phosphorus 2.3 mg/dL (2.3-4.7); Potassium 4.1 mmol/L (3.5-5.1); Sodium 142 mmol/L (136-145)
[2018-05-17] MEDS: Levothyroxine 150 MCG TAB PO SCH (05:34)
[2018-05-17] MEDS: Ferrous Sulfate 325 MG TAB PO SCH ×2 (09:20→16:39)
[2018-05-17] MEDS: Finasteride 5 MG TAB PO SCH (09:21)
[2018-05-17] MEDS: Ascorbic Acid 500 mg Chewable Tablet PO SCH (09:21)
[2018-05-17] MEDS: Amiodarone 200 MG TAB PO SCH ×3 (09:21→20:28)
[2018-05-17] MEDS: Micafungin 100 MG in Sodium Chloride 0.9% 100 ML IVPB SCH (09:22)
[2018-05-17] MEDS: Saccharomyces boulardii 250 MG CAP PO SCH (09:22)
[2018-05-17] MEDS: Pantoprazole 40 MG VIAL IVP SCH (09:22)
--- NOTE | 2018-05-17 11:34 | PRG ---
DATE OF SERVICE: 05/17/2018 SUBJECTIVE: The patient is currently on the IMCU. He reportedly did well overnight and did not require his CPAP and resting comfortably. The patient had his TPN discontinued yesterday and tolerated his increase of his tube feeds, and today, the plan is to try to get him to go on his tube feeds. We will also ask Speech Therapy to re-evaluate him to see if he can progress his oral intake. OBJECTIVE: VITAL SIGNS: Temperature 98.2, heart rate 74, blood pressure 93/54, respirations 22, oxygen saturation 99% on 3L via nasal cannula. GENERAL: The patient is sleeping in bed. He was easily awakened with Dr. Che's voice and was able to converse with him and appeared to be at his baseline, though he was definitely tired this morning. LUNGS: Clear to auscultation bilaterally. HEART: Regular rate and rhythm. ABDOMEN: Soft and nontender with active bowel sounds. EXTREMITIES: Neurovascularly intact. Still 1+ edema. LABORATORY FINDINGS: White blood cell count 10.3, hemoglobin 8.6, hematocrit 26.4, and platelets 508. Sodium 142, potassium 4.1, chloride 112, CO2 of 24, BUN 30, creatinine 0.78, and glucose 96. Magnesium 2.0. Phosphorus 2.3. IMAGING STUDIES: There are no radiographs to review this morning. ASSESSMENT AND PLAN: 1. Status post exploratory laparotomy with extensive adhesiolysis with segmental small-bowel resection for closed-loop small-bowel obstruction and returned to the operating room for re-exploratory laparotomy with enterotomy x3 for small-bowel perforation. 2. Acute blood loss anemia, improved. 3. Continued gross hematuria. PLAN: Plan will be to continue supportive care. Increase tube feeds as tolerated. Speech evaluation to attempt to advance to p.o. diet. Discussion with Dr. Mora in regard to his hematuria. The patient will get a 3-phase CT scan and further workup as indicated by Dr. Mora. We will transfer the patient to the 3rd floor today, and again the discussion was held with the and after rounds with Case Management regarding likely LTAC placement. Case Management will discuss with the family and start the process today. The patient was moved to the neuro chair while we were there and he tolerated this fairly well, but it was noted that he had a drop in his blood pressure, at which time 1 unit of packed red blood cells was ordered and 500 mL of 5% albumin. We will re-evaluate the patient again later this afternoon. The patient was seen this morning with Dr. Che on rounds. Job ID: [id number]
[2018-05-17] MEDS ORDERED: Lidocaine 2% 11 ML SYR FS SCH (13:15)
--- NOTE | 2018-05-17 13:22 | CT ---
CT ABDOMEN AND PELVIS WITH AND WITHOUT CONTRAST: HISTORY: Groin pain. Hematuria. FINDINGS: There are moderate-sized layering bilateral pleural effusions. No pericardial effusion. Dobhoff tube tip projects over the gastric body. The right adrenal mass is similar and contains microscopic fat. There is cholelithiasis. Open wound, anterior abdomen. There is a large clot within the lumen of the urinary bladder, which measures 6.5 cm in AP dimension x 3 cm in width. On the delayed phase of contrast, there is contrast in the renal calices, pelves, a nd ureters. No dilatation. There is minimal contrast within the urinary bladder. The anterior-supe rior urinary bladder wall is very attenuated with gas within the wall of the urinary bladder and, alt evans there appears to be a perforation to the space of Retzius, this is likely just a severely atten uated, thin overlying wall of the urinary bladder, anterosuperiorly. Recent bowel resection. No dil ated loops of large or small bowel. Peripherally enhancing seroma along the right groin, inguinal ca nal, slightly decreased in complexity. The anterior right pelvic hematoma has resolved. The right gonadal vein is markedly distended. This is likely sequela of increased drainage from the right testicular mass, which is not interrogated on this examination. Mild stranding in the small bowel mesentery. Mild enhancement of the right paracolic gutter from a r esolving hematoma. IMPRESSION: 1. Resolving, improving lower right hemipelvic and inguinal canal hematomas. 2. Large clot within the urinary bladder without abnormal enhancing mass. 3. Attenuated anterior-superior wall of the urinary bladder, which contains gas, likely from a large trabecula. No definite evidence of bladder wall injury. 4. No filling defect within the renal calices, pelves, or ureters. 5. Moderate layering bilateral pleural effusion, which is similar. 6. Right adrenal mass is similar and contains microscopic fat. 7. Resolving peripherally enhancing seroma/hematoma, both paracolic gutters. POS: [facility]
--- NOTE | 2018-05-17 13:40 | ULT ---
BILATERAL LOWER EXTREMITY VENOUS DUPLEX EXAM: HISTORY: Patient is immobile. Leg pain. Unable to coagulate. FINDINGS: Real-time color Doppler evaluation of right and left lower extremities was performed from groin to ca lf. This includes evaluation of the common femoral, superficial, and profunda femoral, saphenous, po pliteal, and posterior tibial veins. This shows normal compressibility and augmentation. There is n o evidence of DVT. IMPRESSION: No evidence of deep vein thrombosis of either lower extremity. POS: [facility]
[2018-05-18] MEDS: MEROPENEM 1 GM/50 ML 1 GM in Premix Bag 1 BAG IVPB SCH ×3 (01:19→20:09)
[2018-05-18 05:21] LABS: #Eosinphils 0.1 thou/uL (0.0-0.7); #Neutrophils 7.1 thou/uL (1.40-6.50); %Basophils 0.5 % (0.0-1.0); %Eosinophils 1.6 % (0.0-10.0); %Lymphocytes 10.6 % (21.0-51.0); %Monocytes 10.9 % (0.0-10.0); %Neutrophils 76.4 % (42.0-75.0); Hemoglobin 8.5 g/dL (14.0-18.0); Mean Corpuscular HGB CONC 31.9 g/dL (32.0-36.0); Mean Corpuscular Hemoglobin 30.4 pg (27.0-31.0); Mean Corpuscular Volume 95.5 fL (78.0-98.0); Mean Platelet Volume 8.2 fL (7.4-10.4); Platelet Count 467 thou/uL (130-400); RBC Distribution Width 14.4 % (11.5-14.5); Red Blood Cell (RBC) Count 2.78 mill/uL (4.70-6.10); White Blood Cell (WBC) Count 9.3 thou/uL (4.8-10.8)
[2018-05-18 05:43] LABS: Anion Gap 11 mmol/L (10-20); BUN (Urea Nitrogen) 26 mg/dL (8.4-25.7); Calc. Creatinine Clearance 111 mL/min (70-130); Carbon Dioxide 20 mmol/L (23-31); Chloride 114 mmol/L (98-107); Estimated GFR-MDRD Greater than 90; Glucose 103 mg/dL (83-110); Phosphorus 2.3 mg/dL (2.3-4.7); Potassium 4.3 mmol/L (3.5-5.1); Sodium 141 mmol/L (136-145)
[2018-05-18] MEDS: Levothyroxine 150 MCG TAB PO SCH (05:53)
--- NOTE | 2018-05-18 07:26 | RAD ---
KUB: DATE: 05/18/18 COMPARISON: 05/10/18. HISTORY: Dobbhoff tube placement. FINDINGS: Single view of the upper abdomen shows a Dobbhoff tube in the stomach. There may be contrast in the c olon from previous contrast examination. IMPRESSION: Dobbhoff tube located in the stomach. POS: [facility]
[2018-05-18] MEDS: Micafungin 100 MG in Sodium Chloride 0.9% 100 ML IVPB SCH (10:29)
[2018-05-18] MEDS: Pantoprazole 40 MG VIAL IVP SCH (10:30)
[2018-05-18 10:34] LABS: Platelet Count 444 thou/uL (130-400)
[2018-05-18] MEDS: Ferrous Sulfate 325 MG TAB PO SCH ×2 (10:40→17:46)
[2018-05-18] MEDS: Finasteride 5 MG TAB PO SCH (10:41)
[2018-05-18] MEDS: Amiodarone 200 MG TAB PO SCH ×3 (10:41→21:38)
[2018-05-18] MEDS: Ascorbic Acid 500 mg Chewable Tablet PO SCH (10:41)
[2018-05-18] MEDS: Saccharomyces boulardii 250 MG CAP PO SCH (10:41)
[2018-05-18] MEDS ORDERED: traMADol HCl 50 MG TAB PO PRN (10:42)
[2018-05-18] MEDS ORDERED: ISOVUE-370 76%-LOCM 1 ML ONE (10:43)
[2018-05-18 10:56] LABS: INR-International Normal Ratio 1.2; Prothrombin Time 15.1 SEC (12.0-14.7)
[2018-05-18] MEDS ORDERED: Fentanyl 100 MCG/2 ML VIAL ONE (13:19)
[2018-05-18] MEDS ORDERED: PROPOFOL 200 MG/20 ML VIAL ONE (15:19)
[2018-05-18] MEDS ORDERED: Ondansetron PF 4 MG/2 ML Vial ONE (15:19)
[2018-05-18] MEDS ORDERED: PHENYLEPHRINE-NS 100 MCG/ML 10 ML SYRINGE ONE (15:19)
[2018-05-18] MEDS ORDERED: Lidocaine 1% PF 5 ML VIAL ONE (15:19)
[2018-05-18] MEDS: Furosemide 20 MG/2 ML VIAL SLOW IVP SCH (17:58)
--- NOTE | 2018-05-18 18:08 | PRG ---
DATE OF SERVICE: 05/18/2018 SUBJECTIVE: Mr. Tsai is an 82-year-old man, who is status post exploratory laparotomy with extensive adhesiolysis, segmental small bowel resection, and ultimate repair of ischemic small bowel perforations. The patient remains awake and more alert today. He is occasionally confused. He has poor oral intake, but tolerates tube feeds. He continues to have bowel movements. There continues to be gross hematuria. The patient did receive a transfusion of 1 unit of packed red blood cells yesterday for anemia of blood loss associated with relative hypotension. OBJECTIVE: VITAL SIGNS: His vital signs today includes blood pressure 107/69, pulse is 74 and irregular, respiratory rate is 11 to 18, temperature this morning was noted at 97 degrees Fahrenheit, and oxygen saturation 95% on 2 L by nasal cannula oxygen. HEENT: Reveals bilateral scleral edema. Pupils are otherwise equally round and reactive to light and accommodation. NECK: He has no jugular venous distention noted. HEART: Reveals irregular rate and irregular rhythm. LUNGS: Reveal bibasilar rhonchi. Breathing is otherwise regular and nonlabored. ABDOMEN: Soft, moderately distended, but nontender to palpation. Bowel sounds in all 4 quadrants appear normoactive. EXTREMITIES: Reveals 2+ radial and pedal pulses bilaterally. GENITOURINARY: Reveals stable and maybe slightly resolving scrotal edema. There is active gross hematuria. NEUROLOGIC: Reveals no focal deficits present. LABORATORY FINDINGS: Today include CBC with 9300 white blood cells and hemoglobin and hematocrit 8.5 and 26.6 respectively. Platelet count is 467,000. Metabolic profile; sodium 141, potassium is 4.3, chloride is 114, bicarb is 20, BUN is 26, creatinine is 0.79, glucose is 103, magnesium is 2.0, and phosphorus 2.3. IMPRESSION: 1. Resolving acute metabolic encephalopathy. 2. Stable status post exploratory laparotomy for ischemic bowel perforations. 3. Gross hematuria with acute blood loss anemia. 4. Acute hypophosphatemia. PLAN: Transfuse the patient with packed red blood cells. The patient have been evaluated by Urology for possible cystoscopy under general. We will continue with physical and occupational therapy. Discharge planning is in progress for possible transfer to LTAC once the patient is discharged stable from the standpoint of the gross hematuria. Above findings and plan discussed with the patient and his elderly at bedside. Job ID: [id number]
--- NOTE | 2018-05-18 20:40 | OP ---
DATE OF PROCEDURE: 05/18/2018 PREOPERATIVE DIAGNOSIS: Gross hematuria. POSTOPERATIVE DIAGNOSIS: Gross hematuria. PROCEDURE PERFORMED: Cysto evacuation of clot, fulguration of prostatic urethra and bladder neck. ANESTHESIA: General with oral LMA. ESTIMATED BLOOD LOSS: Probably about 100 mL of actual active bleeding. 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 He also had numerous large blood vessels on and around the bladder neck that were oozing. Two ureteral orifice, these did not appear to be showing any evidence of gross hematuria. He had heavy trabeculation with some cellules and small diverticula. I did not see anything to suggest a bladder cancer, bladder injury, or bladder stone. DRAINS PLACED: 22-[place] 3-way with 40 mL in the balloon. DESCRIPTION OF PROCEDURE: After obtaining written and verbal consent from the patient's , he was taken to the operating suite. He was given a general anesthetic and LMA intubation on his bed and then moved with the inflatable pad to the cystoscopic table. He was then placed in dorsal lithotomy position. PlexiPulses were on his lower extremities and turned on. His indwelling Caruso was removed. He was sterilely prepped and draped. Cystoscopy was done with a 24-[place] sheath. This was well lubricated, passed under direct vision through the male urethra into the urinary bladder with the aid of a visual obturator and 30-degree lens. He had a very large clot in the bladder. We then elliked out and reinspected it until there was no clot left. At this point, we went ahead and used our 30 and 70 degree lenses and examined the entire prostate. Once this was completed, we switched back to the 30-degree lens and we brought in a bladder tumor loop and used this to cauterize the intravesical lobe as well as the bladder neck region the oozing v vessels. We did this until he was clear. At this point, the instruments were removed. We placed a 22-[place] Caruso catheter, placed 40 mL in the balloon. It was hand irrigated. It was clear. We then placed 120 mL of sterile water in the bladder and occluded the irrigation port as well as the drainage port and kept it occluded for 10 minutes and then drained it. It was just a faint pink color. At this point, we went ahead and hooked the Caruso up to drainage bag and restarted the continuous bladder irrigation at a slow rate, took him out of the dorsal lithotomy position, removed him by the inflatable mattress across to his bed. He was awakened and extubated and taken by stretcher into the recovery room. Job ID: [id number]
[2018-05-19] MEDS: MEROPENEM 1 GM/50 ML 1 GM in Premix Bag 1 BAG IVPB SCH ×3 (01:06→17:56)
[2018-05-19 05:04] LABS: #Eosinphils 0.1 thou/uL (0.0-0.7); #Lymphocytes 0.7 thou/uL (1.20-3.40); #Monocytes 0.9 thou/uL (0.11-0.59); #Neutrophils 7.4 thou/uL (1.40-6.50); %Basophils 0.5 % (0.0-1.0); %Eosinophils 1.1 % (0.0-10.0); %Monocytes 9.9 % (0.0-10.0); %Neutrophils 80.6 % (42.0-75.0); Hemoglobin 9.7 g/dL (14.0-18.0); Mean Corpuscular HGB CONC 31.6 g/dL (32.0-36.0); Mean Corpuscular Hemoglobin 30.5 pg (27.0-31.0); Mean Corpuscular Volume 96.5 fL (78.0-98.0); Mean Platelet Volume 8.3 fL (7.4-10.4); Platelet Count 420 thou/uL (130-400); RBC Distribution Width 14.6 % (11.5-14.5); Red Blood Cell (RBC) Count 3.17 mill/uL (4.70-6.10); White Blood Cell (WBC) Count 9.2 thou/uL (4.8-10.8)
[2018-05-19] MEDS: Furosemide 20 MG/2 ML VIAL SLOW IVP SCH ×3 (05:23→20:58)
[2018-05-19] MEDS: Levothyroxine 150 MCG TAB PO SCH (05:23)
[2018-05-19 05:38] LABS: Anion Gap 9 mmol/L (10-20); BUN (Urea Nitrogen) 27 mg/dL (8.4-25.7); Calc. Creatinine Clearance 102 mL/min (70-130); Calcium 7.6 mg/dL (7.8-10.44); Carbon Dioxide 22 mmol/L (23-31); Chloride 114 mmol/L (98-107); Estimated GFR-MDRD 84; Glucose 127 mg/dL (83-110); Phosphorus 2.9 mg/dL (2.3-4.7); Potassium 4.2 mmol/L (3.5-5.1); Sodium 141 mmol/L (136-145)
[2018-05-19] MEDS ORDERED: Metolazone 2.5 MG TAB PO SCH (08:30)
--- NOTE | 2018-05-19 08:31 | RAD ---
CHEST 1 VIEW: COMPARISON: 05/07/2018. HISTORY: Pulmonary insufficiency. FINDINGS: There is a Dobbhoff feeding tube with the distal tip in the left upper quadrant. Advancement/reposit ioning is recommended. Left-sided transvenous pacemaker has lead position terminating on the region of the right atrium and right ventricle. There is cardiomegaly. There are bilateral pleural effusion s with associated parenchymal changes. Pulmonary vessels are prominent. There is no pneumothorax. IMPRESSION: 1. Congestive heart failure. 2. Repositioning of Dobbhoff feeding is recommended. Dobbhoff feeding tube is currently in the left upper quadrant, presumed to be in the stomach. POS: [facility]
[2018-05-19] MEDS: Saccharomyces boulardii 250 MG CAP PO SCH (09:30)
[2018-05-19] MEDS ORDERED: Magnesium 2 GM/50 ML 2 GM in Premix Bag 1 BAG IVPB SCH (09:30)
[2018-05-19] MEDS: Magnesium Oxide 400 MG TAB PO SCH (09:30)
[2018-05-19] MEDS: Pantoprazole 40 MG GRANULES PACKET PER TUBE SCH (09:31)
[2018-05-19] MEDS: Ascorbic Acid 500 mg Chewable Tablet PO SCH (09:31)
[2018-05-19] MEDS: Amiodarone 200 MG TAB PO SCH ×3 (09:31→20:58)
[2018-05-19] MEDS: Ferrous Sulfate 325 MG TAB PO SCH ×2 (09:31→17:56)
[2018-05-19] MEDS: Finasteride 5 MG TAB PO SCH (09:31)
[2018-05-19] MEDS: Micafungin 100 MG in Sodium Chloride 0.9% 100 ML IVPB SCH (09:32)
[2018-05-19 09:47] VITALS: BMI 33.3
--- NOTE | 2018-05-19 15:20 | PRG ---
DATE OF SERVICE: 05/19/2018 SUBJECTIVE: Mr. Tsai is an 82-year-old man, who is status post abdominal explorations and repair of ischemic perforations of the small bowel. The patient is more awake and alert today. He is postop day #1, status post cystoscopy and fulguration of bleeding prostatic and bladder neck tissues. There has not been any gross hematuria since return from the operating room. The patient was transfused with packed red blood cells yesterday and urinary output has been adequate overnight. The patient has been on no oxygen supplementation since last night. OBJECTIVE: VITAL SIGNS: This morning include blood pressure 110/70, pulse is 83, respiratory rate is 27, temperature 97.1 degrees Fahrenheit, and oxygen saturation 97% on room air. HEENT: Pupils are equal, round, and reactive to light and accommodation. He has no jugular venous distention noted. HEART: Reveals irregular rate and irregular rhythm. LUNGS: Reveal scattered basilar rhonchi. Breathing, regular and nonlabored. ABDOMEN: Soft and nondistended. He has mild tenderness to palpation with no gross rebound tenderness present. EXTREMITIES: Reveals 2+ radial and pedal pulses bilaterally. No ankle edema is present. NEUROLOGIC: Reveals no focal deficits present. LABORATORY FINDINGS: Today includes CBC with 9200 white blood cells, hemoglobin and hematocrit of 9.7 and 30.6 respectively. Platelet count is 420,000. Metabolic profile; sodium 141, potassium is 4.2, chloride is 114, bicarb is 22, BUN is 27, creatinine is 0.87, glucose is 127, magnesium 2.0, and phosphorus is 2.9. I have personally reviewed the chest x-ray, which was obtained this morning and remarkable for cardiomegaly with bilateral pleural effusions. The pulmonary vasculature appears engorged. IMPRESSION: 1. Acute congestive heart failure. 2. Stable acute blood loss anemia. 3. Resolving acute metabolic encephalopathy. PLAN: 1. Continue with aggressive, but guarded diuresis. 2. Continue with Physical and Occupational Therapy. 3. Anticipate transfer to LTAC once the patient is more hemodynamically stable. Above findings and plan discussed with the patient and his at bedside. We will ask Speech and Language Pathology to continue to try with swallow function tests and increase oral intake as indicated. Job ID: [id number]
[2018-05-20] MEDS: MEROPENEM 1 GM/50 ML 1 GM in Premix Bag 1 BAG IVPB SCH ×2 (02:18→10:14)
[2018-05-20] MEDS: Furosemide 20 MG/2 ML VIAL SLOW IVP SCH ×3 (02:19→16:34)
[2018-05-20 04:18] LABS: #Basophils 0.1 thou/uL (0.0-0.2); #Eosinphils 0.2 thou/uL (0.0-0.7); #Lymphocytes 0.8 thou/uL (1.20-3.40); #Monocytes 0.9 thou/uL (0.11-0.59); #Neutrophils 7.7 thou/uL (1.40-6.50); %Basophils 0.6 % (0.0-1.0); %Eosinophils 2.1 % (0.0-10.0); %Lymphocytes 8.2 % (21.0-51.0); %Monocytes 9.1 % (0.0-10.0); Hemoglobin 9.9 g/dL (14.0-18.0); Mean Corpuscular HGB CONC 32.2 g/dL (32.0-36.0); Mean Corpuscular Hemoglobin 30.8 pg (27.0-31.0); Mean Corpuscular Volume 95.7 fL (78.0-98.0); Platelet Count 388 thou/uL (130-400); RBC Distribution Width 14.7 % (11.5-14.5); Red Blood Cell (RBC) Count 3.21 mill/uL (4.70-6.10); White Blood Cell (WBC) Count 9.6 thou/uL (4.8-10.8)
[2018-05-20 04:41] LABS: Anion Gap 12 mmol/L (10-20); BUN (Urea Nitrogen) 28 mg/dL (8.4-25.7); Calc. Creatinine Clearance 94 mL/min (70-130); Calcium 7.7 mg/dL (7.8-10.44); Carbon Dioxide 24 mmol/L (23-31); Chloride 106 mmol/L (98-107); Estimated GFR-MDRD 76; Glucose 128 mg/dL (83-110); Magnesium 1.9 mg/dL (1.6-2.6); Phosphorus 2.2 mg/dL (2.3-4.7); Potassium 3.4 mmol/L (3.5-5.1); Sodium 139 mmol/L (136-145)
[2018-05-20] MEDS: Levothyroxine 150 MCG TAB PO SCH (05:34)
[2018-05-20] MEDS ORDERED: ADMIXTURE FEE CHEMO IVPB SCH (07:45)
[2018-05-20] MEDS ORDERED: MAGNESIUM IVPB SCH (07:45)
[2018-05-20] MEDS ORDERED: Potassium Phosphate 30 MMOL in Sodium Chloride 0.9% 500 ML IVPB SCH (08:00)
[2018-05-20] MEDS ORDERED: Potassium Phosphate 30 MMOL in Sodium Chloride 0.9% 250 ML 250 ML IVPB SCH (08:00)
[2018-05-20] MEDS ORDERED: Magnesium 2 GM/50 ML 2 GM in Premix Bag 1 BAG IVPB SCH (08:45)
[2018-05-20] MEDS ORDERED: Magnesium Sulfate 2 GM in Sodium Chloride 0.9% 100 ML IVPB SCH (09:15)
[2018-05-20] MEDS: Saccharomyces boulardii 250 MG CAP PO SCH (09:21)
[2018-05-20] MEDS: Amiodarone 200 MG TAB PO SCH ×3 (09:21→20:45)
[2018-05-20] MEDS: Magnesium Oxide 400 MG TAB PO SCH (09:23)
[2018-05-20] MEDS: Finasteride 5 MG TAB PO SCH (09:23)
[2018-05-20] MEDS: Ascorbic Acid 500 mg Chewable Tablet PO SCH (09:23)
[2018-05-20] MEDS: Ferrous Sulfate 325 MG TAB PO SCH ×2 (09:23→16:34)
[2018-05-20] MEDS: Pantoprazole 40 MG GRANULES PACKET PER TUBE SCH (09:25)
[2018-05-20] MEDS ORDERED: Potassium Phosphate 30 MMOL, Magnesium Sulfate 2 GM in Sodium Chloride 0.9% 500 ML IVPB SCH (10:00)
[2018-05-20] MEDS: Micafungin 100 MG in Sodium Chloride 0.9% 100 ML IVPB SCH (11:33)
--- NOTE | 2018-05-20 15:52 | PRG ---
DATE OF SERVICE: 05/20/2018 SUBJECTIVE: Mr. Tsai is awake and alert today. He is quite deconditioned. He tolerates oral intake, though appetite is not quite good. He tolerates tube feeds at goal, having bowel movements. Urinary output is adequate. There is no gross hematuria since his last trip to the operating room. There has not been any continuous bladder irrigation over the last 36 hours. OBJECTIVE: VITAL SIGNS: Today include blood pressure 102/56, pulse is 76, respiratory rate is 22, temperature 97.3 degrees Fahrenheit, oxygen saturation is 98% on room air. HEENT: Reveals pupils are equal, round, and reactive to light and accommodation. He has no jugular venous distention noted. HEART: Reveals regular rate and rhythm. No murmurs or gallops auscultated. LUNGS: Clear to auscultation bilaterally. Breathing, regular unlabored. ABDOMEN: Soft. Incision is inspected. Fascia is poorly healing, otherwise no gross purulence noted. There is no drainage from the incisional wound nevertheless. There is granulation of the rest of the wound except for the midline fascia. The fascia however remains approximated. NEUROLOGIC: Reveals no focal deficits present. LABORATORY FINDINGS: Today includes a CBC with 9600 white blood cells, hemoglobin and hematocrit 9.9 and 30.7 respectively. Platelet count is 388,000. Metabolic profile; sodium 139, potassium 3.4, chloride is 106, bicarb is 24, BUN 28, creatinine is 0.95, glucose 128, magnesium 1.9, phosphorus 2.2. IMPRESSION: 1. Resolving acute metabolic encephalopathy. 2. Debility in an elderly man, who is status post multiple abdominal operations and resolving ischemic enteritis secondary to closed-loop small bowel obstruction. 3. Acute hypomagnesemia. 4. Acute hypophosphatemia. 5. Acute hypokalemia. 6. Resolved gross hematuria. 7. Resolving acute congestive heart failure. PLAN: 1. Continue gentle diuresis. 2. Correct abnormal electrolytes. 3. Increase activity per Physical and Occupational therapy. 4. Anticipate transfer to LTAC once Urology is okay with the genitourinary system. 5. Final disposition with regard to the Caruso catheter will be provided by Urology upon transfer. Job ID: [id number]
[2018-05-20] MEDS: Furosemide 40 MG TAB PO SCH (20:45)
[2018-05-21 05:57] LABS: Band 2 % (5-11); Eosinophils 1 % (0-10); Hemoglobin 11.3 g/dL (14.0-18.0); Lymphocytes 8 % (21-51); MDiff Complete? YES; Mean Corpuscular HGB CONC 32.4 g/dL (32.0-36.0); Mean Corpuscular Hemoglobin 31.2 pg (27.0-31.0); Mean Corpuscular Volume 96.1 fL (78.0-98.0); Monocytes 8 % (0-10); Neutrophil 81 % (42-75); Platelet Count 315 thou/uL (130-400); RBC Distribution Width 15.2 % (11.5-14.5); Red Blood Cell (RBC) Count 3.63 mill/uL (4.70-6.10); White Blood Cell (WBC) Count 8.9 thou/uL (4.8-10.8)
[2018-05-21 06:20] LABS: ALT (SGPT) 35 U/L (8-55); AST (SGOT) 26 U/L (5-34); Albumin 2.6 g/dL (3.4-4.8); Alkaline Phosphatase 178 U/L (40-150); Anion Gap 12 mmol/L (10-20); BUN (Urea Nitrogen) 26 mg/dL (8.4-25.7); Bilirubin, Total 0.7 mg/dL (0.2-1.2); Calc. Creatinine Clearance 103 mL/min (70-130); Carbon Dioxide 28 mmol/L (23-31); Chloride 102 mmol/L (98-107); Estimated GFR-MDRD 85; Glucose 118 mg/dL (83-110); Magnesium 2.1 mg/dL (1.6-2.6); Phosphorus 2.8 mg/dL (2.3-4.7); Potassium 3.3 mmol/L (3.5-5.1); Protein, Total 5.6 g/dL (5.8-8.1); Sodium 139 mmol/L (136-145)
[2018-05-21] MEDS: Levothyroxine 150 MCG TAB PO SCH (06:25)
[2018-05-21] MEDS ORDERED: Potassium Phosphate 30 MMOL in Sodium Chloride 0.9% 250 ML 250 ML IVPB SCH (07:45)
[2018-05-21] MEDS ORDERED: Tamsulosin HCl 0.4 MG CAP PO SCH (09:00)
[2018-05-21] MEDS: Ferrous Sulfate 325 MG TAB PO SCH (09:03)
[2018-05-21] MEDS: Finasteride 5 MG TAB PO SCH (09:03)
[2018-05-21] MEDS: Saccharomyces boulardii 250 MG CAP PO SCH (09:03)
[2018-05-21] MEDS: Magnesium Oxide 400 MG TAB PO SCH (09:03)
[2018-05-21] MEDS: Furosemide 40 MG TAB PO SCH (09:03)
[2018-05-21] MEDS: Pantoprazole 40 MG GRANULES PACKET PER TUBE SCH (09:03)
[2018-05-21] MEDS: Ascorbic Acid 500 mg Chewable Tablet PO SCH (09:03)
[2018-05-21] MEDS: Amiodarone 200 MG TAB PO SCH (09:03)
[2018-05-21] MEDS: Micafungin 100 MG in Sodium Chloride 0.9% 100 ML IVPB SCH (09:06)
[2018-05-21 11:37] VITALS: BP 116/73; TEMP 98.2
--- NOTE | 2018-05-22 02:00 | DIS ---
DATE OF ADMISSION: 04/29/2018 DATE OF DISCHARGE: 05/21/2018 ADMISSION DIAGNOSES: Closed-loop small bowel obstruction and peritonitis. DISCHARGE DIAGNOSES: Closed-loop small bowel obstruction and peritonitis, extensive adhesions and strangulated proximal ileus, hematuria, ischemic bowel perforation, metabolic encephalopathy, and acute congestive heart failure exacerbation. CONSULTING PHYSICIANS: Dr. Mora and Dr. Lopez, Cardiology. PROCEDURES: April 29, he had an ex-lap adhesiolysis, segmental small bowel resection with primary anastomosis, and NG tube placement. May 05, he had an ex-lap enterorrhaphy x3, abdominal washout, fascial closure and VAC placement. On May 18, he has cystoscopy, fulguration of prostatic urethra and bladder neck. HOSPITAL COURSE: Mr. Tsai is an 82-year-old male patient, who reported to the emergency department with right upper quadrant pain on Plavix. He received a CT scan, which demonstrated he had a closed-loop small-bowel obstruction and he was also positive for peritonitis. He went immediately to the operating room with Dr. Che and the patient was in septic shock. He received an ex-lap adhesiolysis, segmental small-bowel resection with primary anastomosis, and NG tube placement. Postoperatively, he was placed in the ICU for several days and remained intubated on IV antibiotics for septic shock. Eventually, he was extubated but was not having bowel movements and unable to tolerate tube feeds. He received a repeat CT scan, which demonstrated ischemic bowel perforation for which he went back to the OR on May 05 and received an ex-lap enterorrhaphy x3, abdominal washout, fascial closure, and a VAC placement. Postoperatively, he was extubated. On his initial OR visit, he did develop some hematuria and subsequently, Dr. Mora was consulted, who started continuous irrigation. Eventually, the patient went for cystoscopy and had fulguration of the prostatic injuries for bladder neck which resolved his hematuria. The patient was discharged to LTAC facility with his Caruso with plans to try discontinuing the Caruso and doing a void trial in 5 to 7 days. He was tolerating his tube feeds at his max goal on a full liquid diet. At the time of discharge, his pain was well controlled. He had no signs of infection. He was working with Physical Therapy. He was alert and oriented x1 to x2. DISCHARGE DISPOSITION: LTAC. DISCHARGE CONDITION: Satisfactory. PHYSICAL EXAMINATION: GENERAL: Elderly deconditioned male, lying in bed. NEURO: GCS is 14 to 15. Alert and orient x1 to x2. Gross motor and sensation intact in all 4 extremities. HEENT: Pupils equal, round, reactive to light. PULMONARY: Equal chest rise and fall. Clear breath sounds bilaterally. No signs of acute distress. CARDIOVASCULAR: Regular rate and rhythm. No murmurs, gallops, or rubs. GASTROINTESTINAL: Soft, nontender, and nondistended with midline abdominal wound. Clean and dry with Kerlix in place. No signs of acute wound infection. EXTREMITIES: Gross motor and sensation intact. Moves all 4 extremities spontaneously. No swelling noted. 2+ pulses in all extremities. DISCHARGE INSTRUCTIONS: The patient was discharged to LTAC facility. Activity as tolerated. On tube feeds Pivot 1.5 at 65 an hour with additional full liquid diet and Ensure t.i.d. He is to continue finasteride and Flomax, can LTAC to try a void trial and discontinue Caruso in 5 to 10 days. B.i.d. wet-to-dry abdominal dressing changes. Speech to evaluate swallow for advancement of diet. Will follow up with Urology, Dr. Mora and Dr. Lopez in 2 weeks, as well as Dr. Che in 2 weeks. DISCHARGE MEDICATIONS: Include: 1. Allopurinol. 2. Amiodarone. 3. Vitamin C. 4. Ferrous sulfate. 5. Finasteride. 6. Lasix. 7. DuoNeb. 8. Synthroid. 9. Magnesium oxide. 10. Creon. 11. Protonix. 12. Potassium chloride. 13. Florastor. 14. Senokot. 15. Flomax. 16. Ultram. FOLLOWUP: He will follow up in [address] Mora, Urology; Dr. Lopez, Cardiology; and Dr. Che, Surgery. He will complete CBC and BMP before followup with Dr. Che in 2 weeks. This is merely a summary of the patient's hospitalization. For full details, please see his medical record in its entirety. Job ID: [id number]
[2018-05-24 09:41] LABS: Actual Bicarbonate (HCO3a) 21.8 mEq/L (22-28); Analyzer IN Cardio OR; Base Excess (BEa) -1.9 mEq/L (-2.0 to +3.0); CO2 Tension 32.9 mmHg (35.0-45.0); Carboxyhemoglobin (COHb) 0.3 gm% (0.0-3.0); Hemoglobin (Hb) 9.5 g/dL (14.0-18.0); O2 Tension (PaO2) 92.4 mmHg (> 60.0); Potassium - ABG Lab 3.56 mmol/L (3.70-5.30); Puncture Site ALINE; pH, Arterial 7.44 (7.35-7.45)
[2018-05-24 09:42] LABS: Actual Bicarbonate (HCO3a) 23.3 mEq/L (22-28); Analyzer IN Cardio OR; Base Excess (BEa) -2.8 mEq/L (-2.0 to +3.0); CO2 Tension 46.2 mmHg (35.0-45.0); Hemoglobin (Hb) 10.2 g/dL (14.0-18.0); Potassium - ABG Lab 3.99 mmol/L (3.70-5.30); Puncture Site ALINE; pH, Arterial 7.32 (7.35-7.45)
== END 2018-05-21 13:45 | DRG 329 ==
LOC: SCSER 08:04 → ERS 15:22 → CCU 20:35 → 2NO 05-11 20:28 → CCU 05-11 20:29 → IMCU/EMU 05-12 11:52 → SURG A 05-19 13:42
PROVIDERS: ADMIT Surgery; ATTEND Surgery
PROC: 0DB80ZZ Excision of Small Intestine, Open Approach (ICD-10-PCS; principal; 2018-04-29)
PROC: 0WJG4ZZ Inspection of Peritoneal Cavity, Percutaneous Endoscopic Approach (ICD-10-PCS; 2018-04-29)
PROC: 0DNW0ZZ Release Peritoneum, Open Approach (ICD-10-PCS; 2018-04-29)
PROC: 02HV33Z Insertion of Infusion Device into Superior Vena Cava, Percutaneous Approach (ICD-10-PCS; 2018-04-29)
PROC: 3E043XZ Introduction of Vasopressor into Central Vein, Percutaneous Approach (ICD-10-PCS; 2018-04-29)
PROC: 5A1945Z Respiratory Ventilation, 24-96 Consecutive Hours (ICD-10-PCS; 2018-04-29)
PROC: 0B9M8ZX Drainage of Bilateral Lungs, Via Natural or Artificial Opening Endoscopic, Diagnostic (ICD-10-PCS; 2018-05-05)
PROC: 0T9B70Z Drainage of Bladder with Drainage Device, Via Natural or Artificial Opening (ICD-10-PCS; 2018-05-05)
PROC: 0TJB0ZZ Inspection of Bladder, Open Approach (ICD-10-PCS; 2018-05-05)
PROC: 0DQ80ZZ Repair Small Intestine, Open Approach (ICD-10-PCS; 2018-05-05)
PROC: 5A1945Z Respiratory Ventilation, 24-96 Consecutive Hours (ICD-10-PCS; 2018-05-05)
PROC: 30233N1 Transfusion of Nonautologous Red Blood Cells into Peripheral Vein, Percutaneous Approach (ICD-10-PCS; 2018-05-06)
PROC: 0W3R8ZZ Control Bleeding in Genitourinary Tract, Via Natural or Artificial Opening Endoscopic (ICD-10-PCS; 2018-05-18)
DX: K56.52 Intestinal adhesions [bands] with complete obstruction (principal); A41.9 Sepsis, unspecified organism; K65.8 Other peritonitis; R65.21 Severe sepsis with septic shock; G93.41 Metabolic encephalopathy; J96.01 Acute respiratory failure with hypoxia; K55.021 Focal (segmental) acute infarction of small intestine; K63.1 Perforation of intestine (nontraumatic); I50.43 Acute on chronic combined systolic (congestive) and diastolic (congestive) heart failure; E87.3 Alkalosis; N17.9 Acute kidney failure, unspecified; D62 Acute posthemorrhagic anemia; I47.2 Ventricular tachycardia; K56.2 Volvulus; I25.10 Atherosclerotic heart disease of native coronary artery without angina pectoris; I48.2 Chronic atrial fibrillation; N40.1 Benign prostatic hyperplasia with lower urinary tract symptoms; R31.0 Gross hematuria; E87.6 Hypokalemia; E83.39 Other disorders of phosphorus metabolism; E83.42 Hypomagnesemia; B96.1 Klebsiella pneumoniae [K. pneumoniae] as the cause of diseases classified elsewhere; Z53.31 Laparoscopic surgical procedure converted to open procedure; N43.2 Other hydrocele; E03.9 Hypothyroidism, unspecified; N40.0 Benign prostatic hyperplasia without lower urinary tract symptoms; N32.89 Other specified disorders of bladder; M10.9 Gout, unspecified; R40.2414 Glasgow coma scale score 13-15, 24 hours or more after hospital admission; Z85.038 Personal history of other malignant neoplasm of large intestine; Z95.0 Presence of cardiac pacemaker; Z79.01 Long term (current) use of anticoagulants; Z79.82 Long term (current) use of aspirin
CPT/HCPCS: 36415; 36416; 36430; 71045; 71275; 74018; 74022; 74176; 74178; 74250; 76770; 76870; 80048; 80053; 80076; 81001; 82140; 82274; 82533; 82805; 83605; 83690; 83735; 83880; 84100; 84134; 84145; 84484; 85007; 85025; 85027; 85576; 85610; 85730; 86140; 86850; 86870; 86900; 86901; 86904; 86922; 87040; 87077; 87086; 87103; 87149; 87186; 87324; 87449; 88307; 93005; 93010; 93306; 93970; 94002; 94003; 94640; 94660; 96365; 96375; 96376; A4217; C9113; J0131; J0670; J1265; J1644; J1650; J1720; J1940; J2001; J2185; J2248; J2250; J2270; J2405; J2543; J2550; J2704; J2765; J3010; J3475; J3480; J3490; J7050; J7070; J7620; P9016; P9035; P9045; P9047; Q9963; Q9966; Q9967; Q9968; S0028

== ENCOUNTER 2018-08-18 09:40 | Observation (INO) | payer BC, MEDICARE ==
[2018-08-18] MEDS ORDERED: Fentanyl 100 MCG/2 ML VIAL ONE (10:28)
[2018-08-18 10:41] LABS: #Basophils 0.1 thou/uL (0.0-0.2); #Eosinphils 0.2 thou/uL (0.0-0.7); #Lymphocytes 0.7 thou/uL (1.20-3.40); #Monocytes 0.4 thou/uL (0.11-0.59); #Neutrophils 4.6 thou/uL (1.40-6.50); %Basophils 1.5 % (0.0-1.0); %Eosinophils 4.1 % (0.0-10.0); %Lymphocytes 11.2 % (21.0-51.0); %Monocytes 7.2 % (0.0-10.0); Hemoglobin 13.8 g/dL (14.0-18.0); Mean Corpuscular Hemoglobin 29.7 pg (27.0-31.0); Mean Corpuscular Volume 87.3 fL (78.0-98.0); Mean Platelet Volume 6.1 fL (7.4-10.4); Platelet Count 276 thou/uL (130-400); RBC Distribution Width 14.4 % (11.5-14.5); Red Blood Cell (RBC) Count 4.63 mill/uL (4.70-6.10)
[2018-08-18 10:52] LABS: ALT (SGPT) 14 U/L (8-55); AST (SGOT) 19 U/L (5-34); Albumin 3.5 g/dL (3.4-4.8); Alkaline Phosphatase 83 U/L (40-150); Anion Gap 15 mmol/L (10-20); BUN (Urea Nitrogen) 17 mg/dL (8.4-25.7); Bilirubin, Total 0.6 mg/dL (0.2-1.2); Calc. Creatinine Clearance 0 mL/min (70-130); Calcium 8.7 mg/dL (7.8-10.44); Carbon Dioxide 21 mmol/L (23-31); Chloride 106 mmol/L (98-107); Estimated GFR-MDRD 60; Globulin 2.5 g/dL (2.4-3.5); Glucose 89 mg/dL (83-110); Lipase 14 U/L (8-78); Potassium 4.6 mmol/L (3.5-5.1); Sodium 137 mmol/L (136-145)
[2018-08-18 11:53] LABS: Bilirubin Negative (Negative); Blood, Urine Negative (Negative); Clarity Clear (Clear); Glucose, Urine (Dipstick) Negative (Negative); Leukocyte Negative (Negative); Nitrite Negative (Negative); Protein, Urine (Dipstick) Negative (Neg-Trace); Urobilinogen 0.2 mg/dL (0.2-1.0); pH, Urine 6.5 (5.0-9.0)
[2018-08-18 11:54] LABS: Specific Gravity, Urine 1.001 (1.002-1.036)
--- NOTE | 2018-08-18 11:55 | CT ---
Exam: CT thoracic spine without contrast History fall. Pain. Comparison none FINDINGS: Limited evaluation mediastinum due to the lack of IV contrast hydration. No mediastinal mas s or adenopathy hematoma. Heart is enlarged. There is no significant pericardial fluid. Coronary calcifications identified. Atherosclerosis of a nonaneurysmal aorta. Small bilateral effusions. Chronic changes of the visualized lung parenchyma There is a complex mass involving the right adrenal gland measuring 2.5 x 3.4 cm. Attenuation coeffic ient is 17-36 Hounsfield units. Second nodule in the left adrenal gland measures 1.3 x 1.5 cm and has an attenuation coefficient 8 Hounsfield units. Limited evaluation the contents of the central spinal canal and neural foramina. No evidence of signi ficant central canal stenosis. Neural foramina are patent. Hemangioma at the T3 level is noted. Thoracic spine vertebral body heights are maintained. No fractur e. There is diffuse bony mineralization. Visualized ribs do not demonstrate any definite posttraumatic change. IMPRESSION: 1. No evidence of a thoracic spine fracture. There is diffuse bony mineralization. 2. Indeterminate right adrenal lesion. Nonemergent adrenal mass protocol CT or MRI of the abdomen can be formed 3. Small bilateral effusions.
--- NOTE | 2018-08-18 12:01 | CT ---
Exam: Lumbar spine CT without contrast HISTORY: Fall. Pain. FINDINGS: Limited evaluation of the solid organs and alimentary canal due to motion. Atherosclerosis of a nonan eurysmal aorta. Anastomosis at the sigmoid colon is noted. Indeterminate hypodensity in the midline of the pelvis may be associated with the bladder (axial image #159, series 4). Limited incomplete kaleb luation There is diffuse bone demineralization. No evidence of an acute lumbar spine fracture. Sclerosis with a Schmorl's node along the inferior endplate of L2 and L3 is noted. Endplate changes are similar to the previous examination. No spondylolisthesis or spondylolysis. No retroperitoneal paraspinal mass, lymphadenopathy or hematoma Limited evaluation the contents of the central spinal canal and neural foramina due to technique L1-L2: Vacuum disc phenomenon. No high-grade central canal stenosis or high-grade foraminal narrowing L2-L3: No high-grade central canal stenosis. Mild to moderate right foraminal narrowing. Left neural foramen is patent L3-L4: No high-grade central canal stenosis. Moderate right and mild left neural foraminal narrowing L4-L5: Generalized disc bulge, ligament flavum thickening and facet hypertrophy result in mild centra l canal stenosis. Bilaterally, neural foramina are patent L5-S1: No significant central canal stenosis. Bilaterally, neural foramina are patent IMPRESSION: 1. Diffuse bony mineralization 2. Chronic endplate changes. 3. No fracture. 4. No evidence of high-grade central canal stenosis or high-grade foraminal narrowing 5. Indeterminate hypodensity in the midline of the pelvis, likely representing a incompletely evaluat ed urinary bladder. Dedicated imaging if needed.
--- NOTE | 2018-08-18 12:12 | CT ---
CT CERVICAL SPINE WITH CORONAL AND SAGITTAL REFORMATIONS AND NO IV CONTRAST: HISTORY: Fall, neck pain FINDINGS: Multilevel degenerative changes are present. No fracture, subluxation or facet malalignment is identified. There is fluid in the right mastoid air cells. No prevertebral soft tissue swelling is apparent. The visualized lung apices are unremarkable. IMPRESSION: No CT evidence for fracture or traumatic subluxation.
--- NOTE | 2018-08-18 13:42 | RAD ---
PORTABLE CHEST 1 VIEW: Date: 08/18/18 Time: 1147 hours HISTORY: Fall, chest pain. FINDINGS/IMPRESSION: Comparison made with exam of 05/19/18. The heart is enlarged. Left-sided pacemaker device remains in place. The lungs are well expanded with out lobar consolidation, pneumothoraces, leonardo pulmonary edema, or large effusions. POS: [facility]
[2018-08-18 17:02] LABS: Troponin I 0.023 ng/mL (< 0.028)
[2018-08-18 20:28] LABS: Troponin I 0.017 ng/mL (< 0.028)
[2018-08-19] MEDS ORDERED: Acetaminophen 325 MG TAB PO PRN (00:13)
[2018-08-19] MEDS ORDERED: Acetaminophen 650 MG Suppository PR PRN (00:13)
[2018-08-19] MEDS ORDERED: ALPRAZolam 0.25 MG TAB PO PRN (00:15)
[2018-08-19] MEDS ORDERED: Polyethylene Glycol 3350 17 GM Packet PO PRN (00:15)
[2018-08-19] MEDS: Levothyroxine Sodium 75 MCG TAB PO SCH (06:10)
[2018-08-19 06:19] LABS: #Eosinphils 0.2 thou/uL (0.0-0.7); #Lymphocytes 0.8 thou/uL (1.20-3.40); #Monocytes 0.5 thou/uL (0.11-0.59); #Neutrophils 4.3 thou/uL (1.40-6.50); %Basophils 0.8 % (0.0-1.0); %Lymphocytes 13.2 % (21.0-51.0); %Monocytes 8.6 % (0.0-10.0); %Neutrophils 73.5 % (42.0-75.0); Hemoglobin 12.9 g/dL (14.0-18.0); Mean Corpuscular HGB CONC 31.3 g/dL (32.0-36.0); Mean Corpuscular Hemoglobin 29.3 pg (27.0-31.0); Mean Corpuscular Volume 93.6 fL (78.0-98.0); Mean Platelet Volume 6.8 fL (7.4-10.4); Platelet Count 286 thou/uL (130-400); RBC Distribution Width 14.4 % (11.5-14.5); White Blood Cell (WBC) Count 5.8 thou/uL (4.8-10.8)
[2018-08-19 06:33] LABS: Anion Gap 12 mmol/L (10-20); BUN (Urea Nitrogen) 16 mg/dL (8.4-25.7); Calc. Creatinine Clearance 77 mL/min (70-130); Calcium 8.4 mg/dL (7.8-10.44); Carbon Dioxide 20 mmol/L (23-31); Chloride 109 mmol/L (98-107); Estimated GFR-MDRD 72; Glucose 85 mg/dL (83-110); Potassium 4.1 mmol/L (3.5-5.1); Sodium 137 mmol/L (136-145)
[2018-08-19] MEDS: Furosemide 40 MG TAB PO SCH (08:52)
[2018-08-19] MEDS: Midodrine HCl 5 MG TAB PO SCH ×2 (08:52→20:05)
[2018-08-19] MEDS: Allopurinol 100 MG TAB PO SCH (08:52)
[2018-08-19] MEDS: Amiodarone 200 MG TAB PO SCH ×3 (08:52→20:05)
[2018-08-19] MEDS: Ascorbic Acid 500 mg Chewable Tablet PO SCH ×2 (08:52→20:05)
[2018-08-19] MEDS: Tamsulosin HCl 0.4 MG CAP PO SCH (08:53)
[2018-08-19] MEDS: Finasteride 5 MG TAB PO SCH (08:53)
--- NOTE | 2018-08-19 09:09 | HP ---
CHIEF COMPLAINT: Generalized weakness. HISTORY OF PRESENT ILLNESS: Mr. Tsai is a pleasant 83-year-old man, with a recent fall approximately a week ago while at [employer], who states he was being assessed for inpatient rehab, however, has been transitioned home in the meantime while awaiting response from insurance for approval to have him undergo inpatient rehab. The patient states that he has continued to do very very poorly as far as his mobility goes. He is unable to get out of bed and mobilize due to weakness in the bilateral legs. He feels this is due to general deconditioning that has occurred ever since he fell. The patient has been extremely sedentary, not even getting up out of bed to go to the toilet because he felt he could not make it in time. He therefore has had a catheter placed. The patient states he feels well in himself and reports mild lower back discomfort. He did have another fall yesterday evening. The patient was seen in the emergency department and underwent imaging studies including CT-spine of the cervical and lumbar spine showing no evidence for fracture. The patient states he has been patiently waiting for a decision from inpatient rehab on his admission/transition of care. He states the main reason why he is here is that his is no longer able to cope with him and provide assistance the way he requires due to PAST MEDICAL HISTORY: 1. Neuropathy. 2. CHF. 3. Coronary artery disease. 4. Arrhythmia. 5. AFib. 6. Pacemaker. 7. History of ablation. 8. History of colon cancer, status post resection. 9. Sick sinus syndrome. 10. UTI. 11. Perforated bowel, status post repair. 12. Small bowel obstruction. 13. Urinary retention. 14. Hypertension. 15. Hypothyroidism. 16. Gout. 17. Anemia. 18. Enlarged prostate. PAST SURGICAL HISTORY: 1. Multiple colon surgeries including resection. 2. Right knee replacement. 3. Pacemaker placement. SOCIAL HISTORY: The patient denies any alcohol use, drug use, or tobacco use. ALLERGIES: NO KNOWN DRUG ALLERGIES. CURRENT MEDICATIONS: 1. Acetaminophen. 2. Allopurinol. 3. Alprazolam. 4. Amiodarone. 5. Ascorbic acid. 6. Ferrous sulfate. 7. Finasteride. 8. Lasix. 9. Guaifenesin. 10. Levothyroxine. 11. Magnesium. 12. Midodrine. 13. Milk of magnesia. 14. MiraLAX. 15. Omeprazole. 16. Pantoprazole. 17. Potassium chloride. 18. Florastor. 19. Tamsulosin. 20. Tramadol. 21. Trazodone. PHYSICAL EXAMINATION: GENERAL: The patient appears obese, well developed, and in no acute distress. He is visibly sedentary and with reduced energy level. HEENT: Normocephalic and atraumatic. Pupils are equal, round, and reactive to light. Sclerae icterus. Oropharynx is clear. NECK: Supple. No lymphadenopathy. LUNGS: Clear to auscultation bilaterally without wheezes, rales, or rhonchi. CARDIAC: Regular rate and rhythm without audible murmurs, rubs, or gallops. ABDOMEN: Soft, nontender, nondistended. Normoactive bowel sounds present. EXTREMITIES: No guarding or rigidity. The patient has a linear wound measures 6 cm without any evidence of cellulitis or purulent discharge. This is present in the mid abdomen. EXTREMITIES: No lower leg swelling or edema. NEUROLOGIC: Alert and oriented x3. Hard of hearing. LABORATORY DATA: White blood count 6, hemoglobin 13.8, hematocrit 40.4, platelets 276. Sodium 137, potassium 4.6, chloride 106, BUN 17, creatinine 1.17, GFR 60, glucose 89, lactic acid 1.1, calcium 8.7, total bilirubin 0.6. LFTs unremarkable. Troponin negative x2. Albumin 3.5. Urinalysis negative. IMAGING DATA: 1. Chest x-ray, 08/18/2018. Heart is enlarged. Left-sided pacemaker device in place. Lungs well-expanded without any lobar consolidation, pneumothoraces, leonardo pulmonary edema or large pleural effusions. 2. Cervical spine CT. No CT evidence for fracture or traumatic subluxation. 3. Thoracic spine CT, 08/18/2018. No evidence of a thoracic spine fracture. Diffuse bony mineralization. Indeterminate right adrenal lesion. Nonemergent adrenal mass protocol CT or MRI of the abdomen can be performed. Small bilateral pleural effusions. 4. Lumbar spine CT, 08/18/2018. Diffuse bony demineralization. Chronic endplate changes. No fracture. No evidence of high-grade central canal stenosis or high-grade foraminal narrowing. Indeterminate hypodensity in the midline of the pelvis, likely representing incompletely evaluated urinary bladder. IMPRESSION AND PLAN: Mr. Tsai is a very pleasant 83-year-old man who appears to be admitted due to general deconditioning and inability to function at home due to lack of support. The patient states his unable to carry him or assist him with activities of daily living. The patient states he was told he would receive informations regarding whether or not he was approved for inpatient rehab. He is without any complaints at present and states he feels well in his usual self. We will continue to monitor his vital signs. We will resume home medications for hypertension, hypothyroidism, and gout. Consult has been placed to our rehab screening as well as PT/OT. We will recheck labs in the a.m. Disposition to be determined as per primary care team. Full code status. His surrogate decision maker would be his son, Stephen Tsai. The patient's case was discussed with attending who agrees with plan of care as described above. Job ID: [id number]
[2018-08-19 11:25] VITALS: BMI 29.7
--- NOTE | 2018-08-19 14:11 | PDOC.PN ---
- Subjective Encounter Start Date: 08/19/18 Encounter Start Time: 14:10 Patient sitting up in chair with at bedside. He reports doing well today, denies chest pain, palpitations, shortness of breath. He reports recent mechanical fall and generalized weakness. He is waiting auth for inpatient rehab. - Objective Resuscitation Status - Order Detail: 08/19/18 00:13 Resuscitation Status Routine Co-Sign Provider: Resuscitation Status: FULL: Full Resuscitation MAR Reviewed: Yes Vital Signs & Weight: Vital Signs (12 hours) Temp Pulse Pulse Pulse Resp BP BP 08/19/18 09:10 73 78 99/56 L 114/67 08/19/18 07:30 97.9 F 76 18 08/19/18 04:20 97.9 F 73 18 BP Pulse Ox 08/19/18 09:10 08/19/18 07:30 106/62 95 08/19/18 04:20 108/64 95 Weight Admit Weight 210 lb 11.2 oz Weight 207 lb 11.2 oz I&O: 08/18/18 08/19/18 08/20/18 06:59 06:59 06:59 Intake Total 240 Output Total 525 Balance -285 Result Diagrams: 08/19/18 05:47 08/19/18 05:47 Radiology Reviewed by me: Yes Phys Exam - Physical Examination Constitutional: NAD HEENT: moist MMs, oral pharynx no lesions Neck: supple Respiratory: no wheezing, clear to auscultation bilateral Cardiovascular: RRR, no significant murmur Gastrointestinal: soft, positive bowel sounds Musculoskeletal: no edema, pulses present Neurological: normal sensation, moves all 4 limbs Lymphatic: no nodes Psychiatric: normal affect, A&O x 3 Skin: normal turgor, cap refill <2 seconds Dx/Plan (1) Generalized weakness Code(s): R53.1 - WEAKNESS Status: Acute (2) Afib Code(s): I48.91 - UNSPECIFIED ATRIAL FIBRILLATION Status: Chronic Qualifiers: Atrial fibrillation type: permanent Qualified Code(s): I48.2 - Chronic atrial fibrillation (3) CHF (congestive heart failure) Code(s): I50.9 - HEART FAILURE, UNSPECIFIED Status: Chronic (4) HTN (hypertension) Code(s): I10 - ESSENTIAL (PRIMARY) HYPERTENSION Status: Chronic (5) Pacemaker Code(s): Z95.0 - PRESENCE OF CARDIAC PACEMAKER Status: Chronic - Plan cont current plan of care, plan discussed w/ family, PT/OT * Patient with generalized weakness secondary to deconditioning. * Await authorization for inpatient rehab * Patient transitioning to medicare August 21 * Continue current medical management * PT/OT * Caruso cath in place * Wound care for dressing changes
[2018-08-19] MEDS: Famotidine/PF 20 mg/2ml Vial SLOW IVP SCH ×2 (16:21→20:06)
[2018-08-19] MEDS: Pantoprazole 40 MG GRANULES PACKET PO SCH (16:21)
[2018-08-19] MEDS: traZODone HCl 50 MG TAB PO SCH (20:06)
[2018-08-20] MEDS: Levothyroxine Sodium 75 MCG TAB PO SCH (05:40)
[2018-08-20] MEDS: Furosemide 40 MG TAB PO SCH (09:47)
[2018-08-20] MEDS: Finasteride 5 MG TAB PO SCH (09:47)
[2018-08-20] MEDS: Allopurinol 100 MG TAB PO SCH (09:47)
[2018-08-20] MEDS: Amiodarone 200 MG TAB PO SCH ×3 (09:47→20:40)
[2018-08-20] MEDS: Midodrine HCl 5 MG TAB PO SCH ×2 (09:47→20:39)
[2018-08-20] MEDS: Tamsulosin HCl 0.4 MG CAP PO SCH (09:48)
[2018-08-20] MEDS: Pantoprazole 40 MG GRANULES PACKET PO SCH (09:48)
[2018-08-20] MEDS: Ascorbic Acid 500 mg Chewable Tablet PO SCH ×2 (09:48→20:40)
[2018-08-20] MEDS: Famotidine/PF 20 mg/2ml Vial SLOW IVP SCH ×2 (09:49→20:39)
--- NOTE | 2018-08-20 16:17 | PDOC.PN ---
- Subjective Encounter Start Date: 08/20/18 Encounter Start Time: 16:13 Patient doing well today, awaiting placement. He denies chest pain, shortness of breath. His insurance updates tomorrow. As of now, no beds available at Inpatient rehab. - Objective Resuscitation Status - Order Detail: 08/19/18 00:13 Resuscitation Status Routine Co-Sign Provider: Resuscitation Status: FULL: Full Resuscitation MAR Reviewed: Yes Vital Signs & Weight: Vital Signs (12 hours) Temp Pulse Pulse Resp BP BP BP 08/20/18 12:15 98.1 F 77 18 97/54 L 08/20/18 11:03 77 118/69 08/20/18 08:15 97.6 F 74 18 107/64 Pulse Ox 08/20/18 12:15 93 L 08/20/18 11:03 08/20/18 08:15 95 Weight Admit Weight 210 lb 11.2 oz Weight 204 lb 8 oz I&O: 08/19/18 08/20/18 08/21/18 06:59 06:59 06:59 Intake Total 240 1280 Output Total 525 2630 Balance -285 -1350 Result Diagrams: 08/19/18 05:47 08/19/18 05:47 Radiology Reviewed by me: Yes Phys Exam - Physical Examination Constitutional: NAD HEENT: moist MMs, oral pharynx no lesions Neck: no nodes, supple Respiratory: no wheezing, clear to auscultation bilateral Cardiovascular: RRR, no significant murmur Gastrointestinal: soft, positive bowel sounds Dressing applied to lower anterior abdomen Musculoskeletal: no edema Neurological: non-focal, moves all 4 limbs Lymphatic: no nodes Psychiatric: normal affect, A&O x 3 Skin: cap refill <2 seconds Dx/Plan (1) Generalized weakness Code(s): R53.1 - WEAKNESS Status: Acute (2) Afib Code(s): I48.91 - UNSPECIFIED ATRIAL FIBRILLATION Status: Chronic Qualifiers: Atrial fibrillation type: permanent Qualified Code(s): I48.2 - Chronic atrial fibrillation (3) CHF (congestive heart failure) Code(s): I50.9 - HEART FAILURE, UNSPECIFIED Status: Chronic (4) HTN (hypertension) Code(s): I10 - ESSENTIAL (PRIMARY) HYPERTENSION Status: Chronic (5) Pacemaker Code(s): Z95.0 - PRESENCE OF CARDIAC PACEMAKER Status: Chronic - Plan cont current plan of care, plan discussed w/ family, PT/OT * Continue current management * PT/OT * Insurance updated tomorrow * Case management assisting with disposition * Hopeful for discharge when bed available and approval made
[2018-08-20] MEDS: traZODone HCl 50 MG TAB PO SCH (20:40)
[2018-08-21] MEDS: Levothyroxine Sodium 75 MCG TAB PO SCH (05:39)
--- NOTE | 2018-08-21 08:25 | PDOC.EVN ---
Event Note - Event Note Event Note: I have reviewed the case and agree with assessment and plan and physical finding documented by [facility], at this point waiting for his placement
[2018-08-21] MEDS: Midodrine HCl 5 MG TAB PO SCH (08:44)
[2018-08-21] MEDS: Amiodarone 200 MG TAB PO SCH ×2 (08:44→16:26)
[2018-08-21] MEDS: Allopurinol 100 MG TAB PO SCH (08:44)
[2018-08-21] MEDS: Finasteride 5 MG TAB PO SCH (08:44)
[2018-08-21] MEDS: Tamsulosin HCl 0.4 MG CAP PO SCH (08:44)
[2018-08-21] MEDS: Ascorbic Acid 500 mg Chewable Tablet PO SCH (08:44)
[2018-08-21] MEDS: Furosemide 40 MG TAB PO SCH (08:44)
[2018-08-21 11:24] VITALS: BP 108/66; TEMP 97.8
[2018-08-21] MEDS: Famotidine/PF 20 mg/2ml Vial SLOW IVP SCH (16:26)
== END 2018-08-21 15:45 | disposition home or self-care (01) ==
LOC: SCSER 09:40 → 2NO 19:15
PROVIDERS: ADMIT Emergency Medicine; ATTEND Emergency Medicine
DX: R53.81 Other malaise (principal); R29.6 Repeated falls; I11.0 Hypertensive heart disease with heart failure; I50.9 Heart failure, unspecified; I48.2 Chronic atrial fibrillation; E03.9 Hypothyroidism, unspecified; I49.5 Sick sinus syndrome; G62.9 Polyneuropathy, unspecified; M10.9 Gout, unspecified; I25.10 Atherosclerotic heart disease of native coronary artery without angina pectoris; D64.9 Anemia, unspecified; J90 Pleural effusion, not elsewhere classified; N40.1 Benign prostatic hyperplasia with lower urinary tract symptoms; R33.8 Other retention of urine; Z95.0 Presence of cardiac pacemaker; Z79.899 Other long term (current) drug therapy
CPT/HCPCS: 36415; 71045; 72125; 72128; 72131; 80048; 80053; 81003; 83605; 83690; 84484; 85025; 93005; 96361; 96374; 96375; 96376; G0378; J3010; S0028

== ENCOUNTER 2018-08-22 09:16 | Observation (INO) | payer MEDICARE, BC ==
[2018-08-22 10:03] LABS: #Eosinphils 0.1 thou/uL (0.0-0.7); #Lymphocytes 0.7 thou/uL (1.20-3.40); #Monocytes 0.5 thou/uL (0.11-0.59); #Neutrophils 5.8 thou/uL (1.40-6.50); %Basophils 0.3 % (0.0-1.0); %Eosinophils 1.3 % (0.0-10.0); %Lymphocytes 9.2 % (21.0-51.0); %Monocytes 7.4 % (0.0-10.0); %Neutrophils 81.7 % (42.0-75.0); Hemoglobin 13.5 g/dL (14.0-18.0); Mean Corpuscular HGB CONC 32.5 g/dL (32.0-36.0); Mean Corpuscular Hemoglobin 29.6 pg (27.0-31.0); Mean Corpuscular Volume 90.9 fL (78.0-98.0); Mean Platelet Volume 6.5 fL (7.4-10.4); Platelet Count 277 thou/uL (130-400); RBC Distribution Width 14.3 % (11.5-14.5); Red Blood Cell (RBC) Count 4.57 mill/uL (4.70-6.10); White Blood Cell (WBC) Count 7.1 thou/uL (4.8-10.8)
[2018-08-22 10:30] LABS: ALT (SGPT) 9 U/L (8-55); AST (SGOT) 12 U/L (5-34); Albumin 3.5 g/dL (3.4-4.8); Alkaline Phosphatase 87 U/L (40-150); Anion Gap 11 mmol/L (10-20); BUN (Urea Nitrogen) 17 mg/dL (8.4-25.7); Bilirubin, Total 0.8 mg/dL (0.2-1.2); Calc. Creatinine Clearance 0 mL/min (70-130); Calcium 9.1 mg/dL (7.8-10.44); Carbon Dioxide 27 mmol/L (23-31); Chloride 101 mmol/L (98-107); Estimated GFR-MDRD 52; Globulin 2.6 g/dL (2.4-3.5); Glucose 97 mg/dL (83-110); Potassium 3.7 mmol/L (3.5-5.1); Protein, Total 6.1 g/dL (5.8-8.1); Sodium 135 mmol/L (136-145)
[2018-08-22] MEDS ORDERED: ISOVUE-370 76%-LOCM 1 ML ONE (10:58)
[2018-08-22] MEDS ORDERED: Morphine 2 MG/ML SYRINGE ONE (11:18)
--- NOTE | 2018-08-22 11:46 | CT ---
Exam: CT angiogram of the thoracic aorta The endometrium of the abdominal aorta Chest CT with contrast Abdomen CT with COMPARISON: 04/29/2018 HISTORY: Chest pain. Difficulty breathing. TECHNIQUE: CT angiogram of the thoracic and abdominal aorta performed in the axial plane. Three-dimen sional reformatted images are submitted FINDINGS: Chest CT: Heterogeneous nodule in the left thyroid bed, incompletely evaluated measuring 1.4 x 1.5 cm . No mediastinal mass, lymphadenopathy or hematoma. Enlarged cardiac silhouette. No significant pericardial fluid. Trachea and central bronchi are patent. Small bilateral effusions. Dependent atele ctatic changes Right lung: No suspicious masses or consolidation. Stable 0.4 x 0.4 cm solid nodule in the right uppe r lobe. Left lung: No suspicious masses or consolidation. No pneumothorax Abdomen CT: Stable right adrenal gland mass measuring 3.6 x 2.7 cm. There is a punctate calcification with macroscopic fat. Otherwise, arterial phase enhancement of the solid organs. No gastrohepatic, retrocrural or periportal lymphadenopathy CT evidence of cholelithiasis without evidence of cholecystitis Symmetric enhancement the kidneys. No obstructive uropathy Limited evaluation of the alimentary canal. No evidence of bowel obstruction. No mesenteric mass, lymphadenopathy or free air. There is a small amount of perihepatic free fluid. CT ANGIOGRAM: Aortic valve is unremarkable. Ascending thoracic aorta and the origins of the great ves sels of the neck are unremarkable. Atherosclerosis of the aortic knob and proximal descending thoracic aorta. Tortuosity of the distal descending thoracic aorta. No evidence of aneurysm with rega rds of thoracic aorta. The abdominal aorta has a overall normal caliber. No evidence of aneurysm. There is atherosclerosis with fusiform dilatation of the proximal celiac artery. No evidence of assoc iated high-grade obstruction. Superior mesenteric artery, left and right renal arteries are unremarkable. Inferior mesenteric artery grossly patent. There is a vessel emanating from the anterio r right aspect of the aorta just inferior to the origin of the right renal artery which demonstrates multifocal nodularity. The aortic bifurcation is unremarkable. IMPRESSION: 1. No evidence of aneurysm or dissection with regards to the thoracic and abdominal aorta. 2. Solid nodule in the right upper lobe. 3. Cholelithiasis without evidence of cholecystitis. 4. Stable right adrenal gland lesion. 5. Nonspecific perihepatic fluid. 6. Indeterminate nodule in the left thyroid bed.
[2018-08-22 14:17] LABS: Bilirubin Small (Negative); Blood, Urine Moderate (Negative); Clarity CLOUDY (Clear); Glucose, Urine (Dipstick) Negative (Negative); Leukocyte Large (Negative); Nitrite Negative (Negative); Protein, Urine (Dipstick) 30 mg/dL (Neg-Trace); Specific Gravity, Urine 1.025 (1.002-1.036); pH, Urine 5.5 (5.0-9.0)
[2018-08-22 14:19] LABS: Bacteria/HPF 4+ HPF (None Seen); Pathc Cast-AUWi Flag 1.57 (0-2.49); Squamous Epithelial None Seen HPF (0-3)
[2018-08-22 14:34] LABS: Crystals/HPF 2+ CA OXALATE HPF (Negative); Hyaline Casts/LPF 0-3 HYALINE CAST LPF (0-3 Hyaline)
[2018-08-22] MEDS ORDERED: cefTRIAXone\\ROCEPHIN 1 GM VIAL ONE (16:00)
[2018-08-22] MEDS ORDERED: Polyethylene Glycol 3350 17 GM Packet PO PRN (16:51)
[2018-08-22] MEDS ORDERED: Midodrine HCl 5 MG TAB PO SCH (17:00)
[2018-08-22] MEDS ORDERED: Sodium Chloride 0.9% 1,000 ML IV SCH (17:30)
[2018-08-22] MEDS ORDERED: Senokot S 8.6-50 MG TAB PO PRN (17:38)
[2018-08-22] MEDS ORDERED: Acetaminophen 325 MG TAB PO PRN (17:38)
[2018-08-22] MEDS ORDERED: Lidocaine 5% Patch TD SCH (18:00)
--- NOTE | 2018-08-22 18:40 | HP ---
CHIEF COMPLAINT: Back pain, fall. HISTORY OF PRESENT ILLNESS: The patient is an 83-year-old male with past medical history of diastolic heart failure compensated, history of atrial fibrillation, history of ablation and pacemaker placement, and history of colon cancer, status post resection, who presents to the hospital with worsening weakness. The patient apparently was just recently here; however, due to the patient not getting a bed due to the facility being full, the patient at this time was discharged home. The plan was to admit the patient to senior care on Thursday; however, the patient's stated that they tried to get him up toward the bathroom, he has been having a lot of lower back pain to the point that he is unable to really do anything or even get up. The patient has had a prolonged hospital stay earlier this year due to the patient undergoing multiple abdominal surgeries. The last one was on May 21 that is when he was discharged. The patient had a closed-loop small bowel obstruction and peritonitis with extensive adhesions and a strangulated proximal ileus. The patient's stated that after that he has been very significantly deteriorated. The patient denies any nausea, vomiting, chest pain, shortness of breath, fevers, or chills. According to the , he has been eating well. She does not feel that he has been drinking enough water; however, per family, no new changes except for the fact that the patient has been very deconditioned and is unable to take care of himself at home. 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 His right lower extremity is always more cooler than the left, this is also per family. PAST MEDICAL HISTORY: The patient's past medical history is as of the followin. The patient has a history of neuropathy. 2. Heart failure. 3. CAD. 4. Atrial fibrillation. 5. Pacemaker. 6. History of ablation. 7. Multiple UTIs. 8. Perforated bowel, status post repair. 9. Small bowel obstructions. 10. Urinary retention. 11. Hypothyroidism. 12. Gout. 13. Anemia. 14. Enlarged prostate. PAST SURGICAL HISTORY: 1. He has had multiple colon surgeries including resection. 2. Right knee replacement. 3. Pacemaker placement. SOCIAL HISTORY: He denies any alcohol use, drug use, or smoking history. He is a full code. I did discuss this with the patient's daughter. He is currently a full code. Lives with the family. ALLERGIES: NO KNOWN DRUG ALLERGIES. CURRENT MEDICATIONS: The patient is on the followin. Midodrine 5 mg b.i.d. 2. Levothyroxine 75 mcg daily. 3. Finasteride 5 mg daily. 4. Ferrous sulfate 325 daily. 5. Lasix 80 mg daily. 6. Allopurinol 100 mg q.a.m. 7. Protonix 40 mg daily. REVIEW OF SYSTEMS: All negative except for the ones mentioned above in the HPI. PHYSICAL EXAMINATION: VITAL SIGNS: As of the following; temperature of 98.7, heart rate 77, respiratory rate 18, 95% on room air, blood pressure 95/60. GENERAL: He is awake, alert, and oriented x3. Does not appear in any distress. HEENT: Normocephalic, atraumatic. No lymphadenopathy noted. Pupils are equal and reactive to light. CV: S1 and S2 present. No murmurs, rubs, or gallops. LUNGS: Clear to auscultation. No rhonchi or wheezes noted. ABDOMEN: Soft and nontender. Bowel sounds are present x2. EXTREMITIES: No edema. Pedal pulses are present x2. SKIN: He has some chronic vascular changes to his lower extremities, some discoloration. His right leg does appear more cooler than left. Pedal pulses are present bilaterally. NEUROVASCULAR: Oriented x3. The patient is able to move all 4 extremities. No neurovascular deficits noted. LABORATORY RESULTS: As of the following; sodium of 135, potassium of 3.7, BUN of 17, creatinine of 1.32. Troponin x1 is negative. Hematology; WBC 7.1, hemoglobin of 13.5, hematocrit of 41.5, and platelets of 277. No neutrophils. Urine did indicate leukocyte esterase was large, wbc's were greater than 50,000, bacteria was also present. ASSESSMENT AND PLAN: The patient is a very pleasant 83-year-old male, who presents to the hospital for placement and generalized weakness. 1. Generalized weakness, most likely secondary to the patient's chronic back pain. He has multiple factors for his generalized weakness. 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 He has significant muscle atrophy given the fact that he has had multiple admissions and the family states that he has been to multiple nursing homes and his mobility has become significantly worsened since then and also patient had two falls, one was unwitnessed fall at the senior care per the patient and then one was at home, he did have extensive workup done, which included a CT of the lumbar and the cervical spine, which did not show any acute processes. However, there was no MRI that was done on this patient. The other issue with this patient is due to his low blood pressure, there is a concern for giving him pain medications. The patient at home has only been taking Tylenol or some tramadol. I will order this patient Lidoderm patch. I will also increase his midodrine to 10 mg twice a day and also start him on some gentle hydration. I believe this patient might be a little dehydrated given the fact his urine is very concentrated. I will go ahead and start him on broad-spectrum antibiotics just because his blood pressure is much more lower than his normal baseline which is usually 98 or 100. He has been running in the low 70s. His lactic acid was normal. The patient is completely asymptomatic. The patient's Caruso catheter was according to the changed about a couple of months ago. I will also check a cortisol level on this patient and TSH. 2. Hypothyroidism. We will continue his home medications. 3. Diastolic heart failure, compensated. We will continue to monitor. 4. Deep venous thrombosis prophylaxis. We will put the patient on some sequential compression devices. Job ID: [id number]
[2018-08-22 19:57] VITALS: BMI 27.7
[2018-08-22] MEDS: Ferrous Sulfate 325 MG TAB PO SCH (20:17)
[2018-08-22] MEDS: Heparin 5,000 UNITS/ML VIAL SC SCH (20:19)
[2018-08-22] MEDS: Midodrine HCl 5 MG TAB PO SCH (20:19)
[2018-08-22] MEDS ORDERED: traZODone HCl 50 MG TAB PO SCH (21:00)
[2018-08-23 05:42] LABS: #Eosinphils 0.3 thou/uL (0.0-0.7); #Monocytes 0.5 thou/uL (0.11-0.59); #Neutrophils 3.5 thou/uL (1.40-6.50); %Basophils 0.6 % (0.0-1.0); %Monocytes 9.8 % (0.0-10.0); %Neutrophils 66.6 % (42.0-75.0); Mean Corpuscular HGB CONC 32.8 g/dL (32.0-36.0); Mean Corpuscular Hemoglobin 30.2 pg (27.0-31.0); Mean Corpuscular Volume 92.1 fL (78.0-98.0); Mean Platelet Volume 6.8 fL (7.4-10.4); Platelet Count 269 thou/uL (130-400); RBC Distribution Width 14.4 % (11.5-14.5); White Blood Cell (WBC) Count 5.3 thou/uL (4.8-10.8)
[2018-08-23 05:54] LABS: Anion Gap 10 mmol/L (10-20); BUN (Urea Nitrogen) 14 mg/dL (8.4-25.7); Calc. Creatinine Clearance 73 mL/min (70-130); Calcium 8.3 mg/dL (7.8-10.44); Carbon Dioxide 24 mmol/L (23-31); Chloride 106 mmol/L (98-107); Estimated GFR-MDRD 72; Glucose 119 mg/dL (83-110); Potassium 3.5 mmol/L (3.5-5.1); Sodium 136 mmol/L (136-145)
[2018-08-23] MEDS ORDERED: Lidocaine Patch Removal TOP SCH (06:00)
[2018-08-23] MEDS ORDERED: Levothyroxine 150 MCG TAB PO SCH (06:00)
[2018-08-23] MEDS: Heparin 5,000 UNITS/ML VIAL SC SCH (07:55)
[2018-08-23] MEDS: Ferrous Sulfate 325 MG TAB PO SCH (07:55)
[2018-08-23] MEDS: Midodrine HCl 5 MG TAB PO SCH (07:55)
[2018-08-23] MEDS ORDERED: Allopurinol 100 MG TAB PO SCH (09:00)
[2018-08-23] MEDS ORDERED: Finasteride 5 MG TAB PO SCH (09:00)
[2018-08-23] MEDS ORDERED: cefTRIAXone\\ROCEPHIN 1 GM in Sodium Chloride 0.9% 100 ML IVPB SCH (09:00)
[2018-08-23] MEDS ORDERED: Saccharomyces boulardii 250 MG CAP PO SCH (09:00)
[2018-08-23 11:30] VITALS: BP 102/67; TEMP 97.6
--- NOTE | 2018-08-23 23:03 | DIS ---
DATE OF ADMISSION: 08/22/2018 DATE OF DISCHARGE: 08/23/2018 DISCHARGE DIAGNOSES: 1. Generalized weakness. 2. Hypotension. 3. Urinary tract infection. 4. Hypothyroidism. 5. Benign prostatic hyperplasia. HOSPITAL COURSE: The patient is an 83-year-old male, who recently was discharged from the hospital on August 21 since the insurance did not approve his stay at nursing facility. The patient was brought into the hospital yesterday that was August 22 for worsening lower back pain and also inability to walk. The patient at this time was seen in the ER. He just had some weakness in his lower extremities, however, nothing had progressed from his previous hospital stay. The patient was found to be hypotensive. He was given some IV hydration in the ER. I did review his chart. The patient did have an echocardiogram in April that indicated an EF of 50% to 55%. While he was in the hospital yesterday, he did have a CT dissection protocol, which did not indicate any acute abnormalities except for a few findings, which the family had been updated and they are aware of. The findings were he had a small nodule in his right upper lobe of the lung and he has got an indeterminate nodule in the left thyroid bed and also a small adrenal gland lesion. The patient's blood pressure improved. He does have the Caruso catheter, which has been changed about 3 months ago. I will continue his antibiotics. He is currently on ceftriaxone. I will change it to Omnicef. I asked the family to follow up with the cultures. The patient will be discharged home today. I have made the following changes in his medications. The patient was on amiodarone 200 mg t.i.d., I changed it to 200 mg b.i.d. per cardiology's recommendations from May. I did specify with the daughter that she needs to follow up with Cardiology and PCP to see if that dose needs to be further reduced to 200 mg daily. Also, his TSH was 24, so I did make adjustments to his Synthroid. I did increase it from 75 mcg to 100 mcg. I also have told the daughter that he needs to follow up TSH in about 4 weeks to check his levels. PHYSICAL EXAMINATION: VITAL SIGNS: On discharge, his vitals were 97.6, 74, 16, 95% on room air, 102/67. GENERAL: He is awake, alert, and oriented x3. Does not appear in distress. CV: S1 and S2 present. No murmurs, rubs, or gallops. ABDOMEN: Soft, nontender. Bowel sounds are present. EXTREMITIES: No edema. I have consulted Wound Care for his open wound on his abdominal cavity. HOME MEDICATIONS: As of the followin. Amiodarone 200 mg b.i.d. 2. Lasix 20 mg p.o. daily p.r.n. I have decreased his dose of 80 mg and I have made it p.r.n. because when he came to the hospital, he was significantly dehydrated. 3. Synthroid 100 mcg daily. 4. Lidoderm patch one to the back area. 5. Alprazolam 0.25 q.6 hours p.r.n. 6. Allopurinol 100 mg daily. 7. Iron 300 mg twice a day. 8. Finasteride 5 mg daily. 9. Magnesium oxide 400 mg daily. 10. Midodrine 5 mg b.i.d. 11. Protonix 40 mg daily. 12. MiraLAX 17 g p.o. daily p.r.n. 13. Florastor 250 mg daily. 14. Tamsulosin 0.4 mg daily. 15. Tramadol 50 mg q.6 hours. 16. Mucinex 600 mg b.i.d. FOLLOWUP: The patient again will follow up with his primary care doctor and also with Cardiology. Job ID: [id number]
[2018-08-24] MEDS ORDERED: Levothyroxine Sodium 75 MCG TAB PO SCH (06:00)
== END 2018-08-23 15:18 ==
LOC: ERS 09:16 → T4-B 15:45
PROVIDERS: ADMIT Internal Medicine; ATTEND Internal Medicine
DX: R53.1 Weakness (principal); I95.9 Hypotension, unspecified; M54.5 Low back pain; I50.30 Unspecified diastolic (congestive) heart failure; I48.91 Unspecified atrial fibrillation; I25.10 Atherosclerotic heart disease of native coronary artery without angina pectoris; E03.9 Hypothyroidism, unspecified; M10.9 Gout, unspecified; G62.0 Drug-induced polyneuropathy; T45.1X5A Adverse effect of antineoplastic and immunosuppressive drugs, initial encounter; N39.0 Urinary tract infection, site not specified; N40.0 Benign prostatic hyperplasia without lower urinary tract symptoms; K80.20 Calculus of gallbladder without cholecystitis without obstruction; R91.1 Solitary pulmonary nodule; E27.8 Other specified disorders of adrenal gland; Z85.038 Personal history of other malignant neoplasm of large intestine; Z79.899 Other long term (current) drug therapy; Z90.49 Acquired absence of other specified parts of digestive tract; Z95.0 Presence of cardiac pacemaker; Z98.890 Other specified postprocedural states
CPT/HCPCS: 71275; 80048; 82533 ×2; 83605; 84484; 85025; 87077; 87086; 87186; 93005; 94760; 96361 ×2; 96365; 96375; 97139; 99285; G0378; 36415; 80053; 81003; 81015; 84443; J0696; J1644; J2270; J3490; Q9966

== ENCOUNTER 2018-10-19 12:09 | Observation (INO) | payer MEDICARE, BC ==
[~2018-10-19 12:09] MED LIST: ISOVUE-370 76%-LOCM 1 ML ONE
[2018-10-19 12:55] LABS: Bacteria/HPF 3+ HPF (None Seen); Bilirubin Negative (Negative); Blood, Urine Trace (Negative); Clarity Clear (Clear); Glucose, Urine (Dipstick) Normal (Negative); Leukocyte 250 Leu/uL (Negative); Mucous/LPF 1+ LPF (<2+); Nitrite Negative (Negative); Protein, Urine (Dipstick) 30 mg/dL (Neg-Trace); Squamous Epithelial None Seen HPF (0-3); WBC/HPF 21-50 HPF (0-3)
[2018-10-19 13:23] LABS: #Eosinphils 0.1 thou/uL (0.0-0.7); #Lymphocytes 0.6 thou/uL (1.20-3.40); #Monocytes 0.7 thou/uL (0.11-0.59); #Neutrophils 6.8 thou/uL (1.40-6.50); %Basophils 0.4 % (0.0-1.0); %Eosinophils 1.7 % (0.0-10.0); %Lymphocytes 7.3 % (21.0-51.0); %Neutrophils 82.7 % (42.0-75.0); Hemoglobin 12.1 g/dL (14.0-18.0); Mean Corpuscular HGB CONC 33.1 g/dL (32.0-36.0); Mean Corpuscular Hemoglobin 30.5 pg (27.0-31.0); Mean Corpuscular Volume 92.2 fL (78.0-98.0); Mean Platelet Volume 7.3 fL (7.4-10.4); Platelet Count 278 thou/uL (130-400); Red Blood Cell (RBC) Count 3.98 mill/uL (4.70-6.10); White Blood Cell (WBC) Count 8.3 thou/uL (4.8-10.8)
[2018-10-19] MEDS ORDERED: cefTRIAXone\\ROCEPHIN 2 GM VIAL ONE (13:26)
[2018-10-19 13:44] LABS: ALT (SGPT) 19 U/L (8-55); AST (SGOT) 19 U/L (5-34); Albumin 2.8 g/dL (3.4-4.8); Alkaline Phosphatase 93 U/L (40-150); Anion Gap 8 mmol/L (10-20); BUN (Urea Nitrogen) 22 mg/dL (8.4-25.7); Bilirubin, Total 0.6 mg/dL (0.2-1.2); Calc. Creatinine Clearance 0 mL/min (70-130); Calcium 8.5 mg/dL (7.8-10.44); Carbon Dioxide 24 mmol/L (23-31); Chloride 106 mmol/L (98-107); Estimated GFR-MDRD 79; Globulin 2.8 g/dL (2.4-3.5); Glucose 94 mg/dL (83-110); Lipase 13 U/L (8-78); Potassium 4.3 mmol/L (3.5-5.1); Protein, Total 5.6 g/dL (5.8-8.1); Sodium 134 mmol/L (136-145)
--- NOTE | 2018-10-19 14:09 | RAD ---
XR Chest 1 View Portable History: Chest pain Comparison: Radiograph August 18, 2018 Findings: Heart size is enlarged. Small effusions. Mild pulmonary venous congestion. Pulmonary arteri es are dilated. There is sclerosis in the right humeral neck is similar. No acute osseous abnormality. The aorta is e ctatic. Dual-lead pacer is similar. Impression: Cardiomegaly, mild pulmonary venous congestion, and small effusions.
--- NOTE | 2018-10-19 15:34 | CT ---
CT OF THE ABDOMEN AND PELVIS WITH IV CONTRAST: 10/19/18 HISTORY: Right lower quadrant abdominal pain, abdominal distention. COMPARISON: Studies on 08/22/18, 05/17/18 and 03/23/16. FINDINGS: There is small bilateral pleural effusions and associated bibasilar consolidation likely related to p assive atelectasis. Pleural effusion on the left has developed in the interim with slight enlargement of the right pleural effusion. The heart remains enlarged. Though the left subclavian cardiac pacemaking device is again partially i noy. There is a stable heterogeneous right adrenal lesion with evidence of fat density within the h eterogeneous lesion. This is unchanged in size and appearance compared to multiple prior exams. The l esion measures approximately 3.5 cm. Small bilateral pleural effusions with associated passive atelectasis are seen. The left pleural effu sions has developed in the interim with slight enlargement of the right pleural effusion. The heart r emains enlarged and dual cardiac pacemaking leads are again present. There is increased density material as well as calculi seen within the gallbladder lumen. There is a 3.5 cm heterogeneous right adrenal lesion unchanged in appearance or size compared to prio r exams. The liver, spleen, pancreas, and left adrenal gland demonstrate a normal CT appearance. A Caruso catheter is present in the urinary bladder which is mostly incompletely distended. Foci of ga s are seen within the urinary bladder, probably attributable to the Caruso catheter. Small amount of free fluid is seen adjacent to the liver and with a tiny amount of fluid adjacent to the spleen. Abdominal aorta is normal in caliber with vascular calcifications seen in the abdominal a karina and involving the iliac arteries. Postsurgical changes in the region of the rectosigmoid junction are seen with surgical clips in the p karen. Small to moderate amount of retained fecal material is scattered within the colon with gaseous distention of the colon. The appendix is not visualized, but no secondary signs to suggest appendicitis are visualized. There are enlarged vessels within the right hemiscrotum with prominent vascular appearing mass within the right hemiscrotum. Testicular ultrasound examination is recommended for further evaluation. The hypervascular mass-like area measures 6.5 cm x 4.7 cm. There is enlargement of the right gonadal vein . Compression fracture T9 vertebral body which has developed in the interim compared to study on 08/22/18 . There is stable prominent degenerative changes at the inferior end plate L2 vertebral body likely r elated to prominent Schmorl's nodes in this region with adjacent reactive changes. IMPRESSION: 1. Findings suggestive of right scrotal mass with multiple adjacent enhancing vessels with promi nence of the gonadal vein. Testicular ultrasound is recommended for further evaluation. 2. Cardiomegaly. 3. Small bilateral pleural effusions and associated passive atelectasis. 4. Stable right adrenal lesion. 5. Small amount of ascites. 6. Postsurgical changes of loops of bowel in the upper abdomen as well as in the region of the r ectosigmoid junction. 7. Small to moderate amount of retained fecal material in the colon. 8. Compression fracture T9 vertebral body which has developed in the interim compared to study o n 08/22/18. 9. Cholelithiasis with sludge in the gallbladder lumen. 10. Stable enlargement of the prostate gland. Code T POS: ROBERTO
[2018-10-19] MEDS ORDERED: Senokot S 8.6-50 MG TAB PO PRN (17:47)
[2018-10-19] MEDS ORDERED: Acetaminophen 325 MG TAB PO PRN (17:47)
[2018-10-19] MEDS ORDERED: Furosemide 20 MG/2 ML VIAL SLOW IVP SCH (18:00)
[2018-10-19] MEDS: Midodrine HCl 5 MG TAB PO SCH (20:41)
[2018-10-19] MEDS: Famotidine 20 MG TAB PO SCH (20:42)
--- NOTE | 2018-10-19 21:53 | HP ---
PRIMARY CARE PHYSICIAN: Romulo Gallegos MD. CHIEF COMPLAINT: Back pain. HISTORY OF PRESENT ILLNESS: Mr. Tsai is an 83-year-old man who reported to the emergency room today for evaluation of back pain, which his reports that he has been complaining about since July. He had multiple bowel surgeries in earlier this year. [facility] and has gained enough strength back where he is primarily wheelchair bound, but he does have home health and PT coming several times a week. noticed that starting on Thursday his normal activities being able to transfer, get around with a couple of steps with the walker, being able to transfer himself to the bed and to the wheelchair and back worsened. He was unable to move much without being fatigued and she worried that he might have developed a urinary tract infection as he has an indwelling catheter. While she was here, she said that she wanted his back to be re-evaluated, because he fell in August and has been complaining of. She said that is his primary complaint. When he did the x-rays, CT scans in July of 2018, thoracic spine was negative for any acute process. On the CT scan here today of abdomen and pelvis, he was noted to have a compression fracture at T9, which had developed in the interim compared to the study on 08/22/2018. On that CT scan, he also had findings suggestive of a right scrotal mass, which was also detected in April with a testicular ultrasound. He does have some cardiomegaly and small bilateral pleural effusions. Stable right adrenal lesions. Small amount of ascites. Postsurgical changes to loose a bowel. Wfyzt-ap-vfftqodd amount of retained fecal matter in the colon. Cholelithiasis with sludge in the gallbladder lumen. Stable enlargement of the prostate gland. Laboratory results in the emergency room, positive for UTI. Urinalysis positive for blood, leukocyte esterase, red blood cells, white blood cells and 3+ bacteria that was sent off for culture. Chemistry: BNP 612. Troponin 0.027. White blood cell count 8.3, hemoglobin 12.1, hematocrit 36.7, and platelet count is 278. During exam on this visit, the patient was getting fitted for a TLSO brace for the compression fracture and once it was placed, the patient started yelling and stating that his back hurt much worse with the brace on and begged to have it taken off. We compromised and the patient agree to wear brace anytime he was not lying in bed. I did talk to the extensively about what to do with the compression fracture as an outpatient, but that the brace was the best thing to keep his spine stable. The patient also was hypotensive in the emergency room with initial pressures 90/53, it went down to 85/55. He was given a liter and half of fluid and that rebounded. The patient's does state that he has a history of hypotension and is on midodrine to help with the pressure. Prior to leaving the emergency room, his blood pressure had come back to normal, which for the patient is in the low 100 systolic. The patient admitted to medical floor for management of UTI, generalized weakness. An initial hypotension has rebounded with some fluid resuscitation. We will ask OT/PT to evaluate and Case Management to see, if by chance that he might need some more PT home health, whether he would best qualify for another inpatient stay. PAST MEDICAL HISTORY: 1. Neuropathy. 2. Heart failure. 3. CAD. 4. Atrial fib. 5. Pacemaker. 6. History of ablation. 7. Multiple UTIs. 8. Perforated bowel, status post repair. 9. Small bowel obstruction. 10. Urinary retention. 11. Hypothyroidism. 12. Gout. 13. Anemia. 14. Enlarged prostate. 15. Testicular mass. PAST SURGICAL HISTORY: 1. Multiple colon surgeries including resection. 2. Right knee replacement. 3. Pacemaker placement. SOCIAL HISTORY: Denies any drug use. Alcohol or smoking history. Lives at home with his family. HOME MEDICATIONS: Per the ER record has not been fully reconciled. 1. Levothyroxine 100 mcg p.o. once daily. 2. Lasix 20 mg p.o. every other day. 3. Potassium chloride 1 tab 20 mEq once daily. 4. Allopurinol 100 mg p.o. once daily. 5. Amiodarone 200 mg b.i.d. 6. Finasteride 5 mg p.o. once daily. 7. Midodrine 5 mg p.o. b.i.d. 8. Gabapentin 2 tabs once daily at bedtime. 9. Lasix once daily in the morning. 10. Lyrica 50 mg p.o. once daily at bedtime. ALLERGIES: NONE. REVIEW OF SYSTEMS: The patient reports some back pain. Reports generalized weakness. PHYSICAL EXAMINATION: VITAL SIGNS: Blood pressure is 101/67, pulse is 77, respirations are 18, temp is 98.7, pO2 sats 96% on room air. CONSTITUTIONAL: The patient appears nontoxic. He was initially in some mild pain distress after the TLSO brace was first fitted. He was yelling to get it removed as it increased his back pain, so brace was reluctantly removed. After that, patient relaxed and was no longer in any pain distress. HEAD: Atraumatic and normocephalic. Eyes, pupils equally round and reactive to light. Extraocular muscles are intact. ENT: Mouth exam is normal. Mucous membranes are moist. NECK: Normal range of motion. Trachea is midline. RESPIRATORY: Chest expansion is equal. Breath sounds are clear. CARDIOVASCULAR: Heart sounds are normal. Regular rate and rhythm. ABDOMEN: Nontender. Healing scar to lower abdomen. : There is a Caruso catheter in place. BACK: No tenderness. No CVA tenderness. EXTREMITIES: Upper extremity, normal inspection, normal range of motion. Lower extremity, 2+ pitting edema. Pulses equal bilaterally. NEUROLOGIC: The patient is alert and oriented to person, place, and time. Speech is normal. SKIN: Warm, dry and normal in color. IMAGING: EKG in the emergency room shows electronically paced rate is 74. It is unchanged from the previous EKG on 08/22/2018. PLAN/ASSESSMENT: 1. Urinary tract infection with some initial worsening of hypotension, which has improved with some fluids and Rocephin given in the ER. We will continue this. Urine sent off for culture. The patient did have some urine culture positive for Klebsiella in August of this year and it was sensitive to the Rocephin, so we will continue this. The patient has had multiple urine cultures that grew out Klebsiella, the patient is complaining of pain. We will continue antibiotics and culture. 2. Hypotension. We will continue Midodrine. We will trend. 3. Hypothyroidism. Continue home medication. We will check a TSH and T4 in the morning. 4. History of gout. We will continue home medications. 5. Urinary retention secondary to enlarged prostate. Caruso is currently in place. We will restart home medications. 6. Generalized weakness, possibly related to #1. We will ask PT/OT for evaluation. Also consult Case Management. 7. Gastrointestinal and deep venous thrombosis prophylaxis will be started. 8. Hospital course is dependent on clinical findings. Job ID: [id number]
[2018-10-20 04:42] LABS: #Eosinphils 0.3 thou/uL (0.0-0.7); #Lymphocytes 0.8 thou/uL (1.20-3.40); #Monocytes 0.5 thou/uL (0.11-0.59); #Neutrophils 4.3 thou/uL (1.40-6.50); %Basophils 0.7 % (0.0-1.0); %Eosinophils 5.4 % (0.0-10.0); %Lymphocytes 13.1 % (21.0-51.0); %Monocytes 8.7 % (0.0-10.0); %Neutrophils 72.2 % (42.0-75.0); Hemoglobin 12.4 g/dL (14.0-18.0); Mean Corpuscular Hemoglobin 30.5 pg (27.0-31.0); Mean Corpuscular Volume 92.4 fL (78.0-98.0); Mean Platelet Volume 7.4 fL (7.4-10.4); Platelet Count 289 thou/uL (130-400); Red Blood Cell (RBC) Count 4.06 mill/uL (4.70-6.10)
[2018-10-20 05:21] LABS: ALT (SGPT) 17 U/L (8-55); AST (SGOT) 14 U/L (5-34); Alkaline Phosphatase 101 U/L (40-150); Anion Gap 12 mmol/L (10-20); BUN (Urea Nitrogen) 20 mg/dL (8.4-25.7); Bilirubin, Total 0.7 mg/dL (0.2-1.2); Calc. Creatinine Clearance 102 mL/min (70-130); Calcium 8.5 mg/dL (7.8-10.44); Carbon Dioxide 25 mmol/L (23-31); Chloride 104 mmol/L (98-107); Estimated GFR-MDRD 72; Free T4 (Free Thyroxine) 0.96 ng/dL (0.70-1.48); Globulin 2.9 g/dL (2.4-3.5); Glucose 84 mg/dL (83-110); Potassium 3.6 mmol/L (3.5-5.1); Protein, Total 5.9 g/dL (5.8-8.1); Sodium 137 mmol/L (136-145); Thyroid Stimulating Hormone 5.2805 uIU/mL (0.35-4.94)
[2018-10-20 05:32] VITALS: BMI 27.1
[2018-10-20] MEDS: Famotidine 20 MG TAB PO SCH ×2 (09:40→20:59)
[2018-10-20] MEDS: Midodrine HCl 5 MG TAB PO SCH ×2 (09:41→20:59)
[2018-10-20] MEDS ORDERED: Furosemide 20 MG TAB PO SCH (11:45)
[2018-10-20] MEDS ORDERED: cefTRIAXone\\ROCEPHIN 1 GM in Sodium Chloride 0.9% 100 ML IVPB SCH (16:00)
[2018-10-20] MEDS ORDERED: Gabapentin 100 MG CAP PO SCH (21:00)
[2018-10-20] MEDS ORDERED: Pregabalin 50 MG CAP PO SCH (21:00)
[2018-10-20] MEDS ORDERED: Midodrine HCl 5 MG TAB PO SCH (21:00)
[2018-10-20] MEDS: Enoxaparin Sodium 80 MG/0.8 ML SYRINGE SC SCH (21:01)
[2018-10-20] MEDS: Amiodarone 200 MG TAB PO SCH (21:02)
--- NOTE | 2018-10-20 21:33 | PRG ---
DATE OF SERVICE: 10/20/2018 SUBJECTIVE: Mr. Tsai is a pleasant, elderly, gentleman with past medical history significant for multiple abdominal surgeries including small bowel resection in April of this year and multiple hospitalizations resulting in generalized debility and weakness, who presented to the hospital with chief complaint of dysuria as well as back pain. The patient has been admitted with UTI as well as T9 compression fracture. He has been unable to tolerate the TLSO clamshell orthotic prescribed for him. OT and PT could not get the brace fitted while the patient was seated, and he is not tolerating it secondary to pain. Otherwise, he has no complaints to me today. He has no chest pain or shortness of breath. He has no nausea or vomiting. He is tolerating a diet well. He states he is having regular bowel movements. OBJECTIVE: VITAL SIGNS: Blood pressure 105/68, pulse is 71, O2 saturation is 100% on room air, temperature is 97.4. GENERAL: This is an elderly male, resting comfortably in bed, in no acute distress. HEENT: Head is atraumatic and normocephalic. Mucous membranes are moist. NECK: Trachea is midline. No obvious JVD. CV: S1 and S2. Regular rate and rhythm. No appreciable murmurs, rubs, or gallops. LUNGS: Regular respiratory rate and pattern. Overall clear to auscultation. EXTREMITIES: No appreciable edema, but positive for multiple varices. LABORATORY DATA: White blood cell count 6.0, hemoglobin 12.4, hematocrit 37.5, platelets are 289. Sodium 137, potassium 3.6, BUN is 20, creatinine is 1, albumin is 3. BNP was elevated at 612. TSH 5.2, free T4 of 0.96. Urinalysis was positive for 3+ bacteria along with leukocyte esterase, rbc, and wbc. ASSESSMENT: 1. Back pain resulting in decreased mobility secondary to T9 compression fracture. 2. Urinary tract infection, awaiting culture results. 3. Falls and generalized debility secondary to multiple hospitalizations. 4. Status post multiple abdominal surgeries with history of ischemic bowel including small bowel resection in April 2018, with continued surgical wound. 5. Atrial fibrillation with elevated CHADS-VASc, preserved ejection fraction, not a candidate for anticoagulation secondary to frequent falls. 6. Status post AVJ ablation with pacemaker dependence. PLAN: At this time, I have called [facility] to have them come out and hopefully give us options for a different type of brace rather than clamshell. At this time, his , who is also elderly, cannot fit the patient properly in this brace or get it on him, neither can PT or OT today. If deemed appropriate, the patient and his family are receptive to rehab. The patient's greatest desire is to be able to walk again independently. At this time, he is largely in a wheelchair, but can transfer himself, get himself up, and has been able to ambulate in the recent past. Regarding his atrial fibrillation, I will start Lovenox for both DVT and stroke prophylaxis. We will continue his home medications as well. We are awaiting his urine cultures, and we will continue empiric antibiotics for now. Wound Care has also been consulted regarding his abdominal scar. Job ID: [id number]
[2018-10-21] MEDS ORDERED: Tamsulosin HCl 0.4 MG CAP PO SCH (09:00)
[2018-10-21] MEDS ORDERED: Levothyroxine 150 MCG TAB PO SCH (09:00)
[2018-10-21] MEDS ORDERED: Finasteride 5 MG TAB PO SCH (09:00)
[2018-10-21] MEDS ORDERED: Allopurinol 300 MG TAB PO SCH (09:00)
[2018-10-21] MEDS ORDERED: Furosemide 40 MG TAB PO SCH (09:00)
[2018-10-21] MEDS: Enoxaparin Sodium 80 MG/0.8 ML SYRINGE SC SCH (09:03)
[2018-10-21] MEDS: Midodrine HCl 5 MG TAB PO SCH (09:04)
[2018-10-21] MEDS: Famotidine 20 MG TAB PO SCH (09:05)
[2018-10-21] MEDS: Amiodarone 200 MG TAB PO SCH (09:05)
[2018-10-21 17:03] VITALS: BP 95/60; TEMP 97.6
--- NOTE | 2018-10-22 13:36 | DIS ---
DATE OF ADMISSION: 10/19/2018 DATE OF DISCHARGE: 10/21/2018 CHIEF COMPLAINT: On admission: Back pain. DISCHARGE DIAGNOSES: 1. Back pain secondary to T9 compression fracture after a fall in August 2018. 2. Urinary tract infection, culture positive for Pseudomonas and Escherichia coli. 3. Falls and generalized debility secondary to multiple hospitalizations. 4. Status post multiple abdominal surgeries with history of ischemic bowel including small-bowel resection in April 2018, with continued nonhealing surgical wound. 5. Atrial fibrillation with elevated CHADs-VASc, preserved ejection fraction, not a candidate for anticoagulation secondary to frequent falls. 6. Status post AVJ ablation with pacemaker dependence. 7. Varicocele of right testis, stable. BRIEF HOSPITAL COURSE: Mr. Tsai is a pleasant elderly gentleman with past medical history as outlined above, who has had multiple hospitalizations since April of this year, along with continuing generalized weakness and debility. He presented to the emergency department in this hospitalization with chief complaint of back pain. He did undergo a CT of the abdomen and pelvis with IV contrast, which was compared to studies performed on 08/22, of this year . There was an interval development of a T9 compression fracture. He was initially fitted with a clamshell TLSO brace, however, he initially did not tolerate this, with PT, OT and nursing staff having difficulties getting him into the brace. I called [facility], who returned, and cut the brace and re-fitted it, so that the patient could tolerate it. His pain was much relieved with refitting of the brace. The patient does have an indwelling Caruso catheter, and urinalysis revealed findings consistent with UTI. His culture was positive for Klebsiella and Pseudomonas. Pharmacy recommending levofloxacin at discharge for continued coverage. I had extensive conversations with both PT and OT, who believe that the patient is a safe discharge for home with continued use of the brace and outpatient physical therapy. On the day of my interview at discharge, the patient has no complaints. He is anxious to go home, and he has good support there with his and daughter. All findings were discussed with the patient. He has no complaints of chest pain or shortness of breath and feels well today. DISCHARGE CONDITION: Stable. DISCHARGE DISPOSITION: Home with prison and PT. 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 Box at [facility]. I have advised them to carefully consider anticoagulation secondary to his elevated CHADs-VASc. He is not deemed a candidate in the past secondary to frequent falls. No changes were made to his home medications: He will continue his regimen, with the addition of levofloxacin 250 mg daily x3 days. He will wear his brace for the next 8-12 weeks, and follow up with his primary care physician, Dr. Gallegos for further imaging. If he deems Neurosurgery consult necessary, this may be performed as an outpatient. He will continue wearing the brace at all times except when he is sleeping. All questions were answered to the patient's and the family's satisfaction. He will be discharged home in good condition today. Job ID: [id number]
--- NOTE | 2018-10-25 17:01 | EKG ---
Test Reason : Blood Pressure : / mmHG Vent. Rate : 074 BPM Atrial Rate : 074 BPM P-R Int : 080 ms QRS Dur : 174 ms QT Int : 496 ms P-R-T Axes : 084 267 076 degrees QTc Int : 550 ms Electronic ventricular pacemaker No changes from AUG-2018 Confirmed by ABDOULAYE BARNES ([id number]), science editor LAVERN SPEAR ([id number] on 10/25/2018 5:00:58 PM Referred By: Confirmed By:ABDOULAYE BARNES
== END 2018-10-21 16:23 | disposition home or self-care (01) ==
LOC: ERS 12:09 → T4-B 17:38
PROVIDERS: ADMIT Internal Medicine; ATTEND Internal Medicine
DX: S22.070A Wedge compression fracture of T9-T10 vertebra, initial encounter for closed fracture (principal); N39.0 Urinary tract infection, site not specified; I95.9 Hypotension, unspecified; E03.9 Hypothyroidism, unspecified; M10.9 Gout, unspecified; N40.1 Benign prostatic hyperplasia with lower urinary tract symptoms; R33.8 Other retention of urine; R53.1 Weakness; I25.10 Atherosclerotic heart disease of native coronary artery without angina pectoris; I48.91 Unspecified atrial fibrillation; G62.9 Polyneuropathy, unspecified; I11.0 Hypertensive heart disease with heart failure; I50.9 Heart failure, unspecified; J90 Pleural effusion, not elsewhere classified; R18.8 Other ascites; K80.20 Calculus of gallbladder without cholecystitis without obstruction; Z90.49 Acquired absence of other specified parts of digestive tract; Z95.0 Presence of cardiac pacemaker; Z96.651 Presence of right artificial knee joint; Z79.899 Other long term (current) drug therapy
CPT/HCPCS: 71045; 74177; 80053; 83605; 83690; 83880; 84439; 84484; 85025; 87040; 87077; 87086; 87184; 87186; 93005; 96361; 96365; 96372 ×2; 96375; 96376; 97116; 97139 ×4; 97530 ×3; 99285; G0378 ×4; L0639; 36415; 81003; 81015; 84443; J0696; J1650; J1940; J3490; Q9966

== ENCOUNTER 2018-12-09 10:18 | Outpatient (CLI) | payer MEDICARE, BC ==
--- NOTE | 2018-12-09 11:29 | RAD ---
Frontal and lateral imaging of the thoracic spine: 12/09/2018 HISTORY: Compression fracture of the thoracic spine FINDINGS: There is prominence of the cardiac silhouette, only partially imaged on this exam. There is a dual lead transvenous pacing device. There is an anterior wedge compression fracture of one of the lower thoracic vertebral bodies, which is felt to represent the T9 level. This fracture demonstrates approximately 50% loss of vertebral body height anteriorly. No additional fractures appreciated on this examination. Lateral examination of the upper thoracic spine is limited secondary to obliquity and overlapping osseous structures. IMPRESSION: Anterior wedge compression fracture of the lower thoracic spine as detailed above.
== END 2018-12-09 10:19 | disposition home or self-care (01) ==
LOC: TBSIIMAG 10:18
PROVIDERS: ATTEND Neurological Surgery
DX: S22.000A Wedge compression fracture of unspecified thoracic vertebra, initial encounter for closed fracture (principal); M54.6 Pain in thoracic spine
CPT/HCPCS: 72072

== ENCOUNTER 2019-01-06 10:27 | Outpatient (CLI) | payer MEDICARE, BC ==
--- NOTE | 2019-01-06 11:23 | RAD ---
THORACIC SPINE FRONTAL AND LATERAL IMAGIN01/06/2019 HISTORY: Re-evaluate thoracic spine compression fracture. COMPARISON: 12/09/2018 FINDINGS: Dual-lead transvenous pacing device noted. Cardiac silhouette is prominent. Pulmonary arterial vascul ature is prominent as well. There is an anterior wedge compression fracture involving the T9 vertebral body with approximately 45 % loss of vertebral body height anteriorly. This is not significantly changed when compared to the exam. No new fracture is evident. IMPRESSION: Stable anterior wedge compression fracture of the T9 vertebral body. POS: TPC
== END 2019-01-06 10:28 | disposition home or self-care (01) ==
LOC: TBSIIMAG 10:27
PROVIDERS: ATTEND Neurological Surgery
DX: S22.070D Wedge compression fracture of T9-T10 vertebra, subsequent encounter for fracture with routine healing (principal)
CPT/HCPCS: 72072

== ENCOUNTER 2019-01-08 09:35 | Emergency (ER) | payer MEDICARE, BC ==
[2019-01-08 10:41] LABS: #Basophils 0.1 thou/uL (0.0-0.2); #Eosinphils 0.2 thou/uL (0.0-0.7); #Lymphocytes 0.7 thou/uL (1.20-3.40); #Monocytes 0.5 thou/uL (0.11-0.59); #Neutrophils 4.4 thou/uL (1.40-6.50); %Basophils 1.3 % (0.0-1.0); %Eosinophils 4.1 % (0.0-10.0); %Lymphocytes 12.1 % (21.0-51.0); %Monocytes 8.4 % (0.0-10.0); %Neutrophils 74.2 % (42.0-75.0); Hemoglobin 12.2 g/dL (14.0-18.0); Mean Corpuscular HGB CONC 32.4 g/dL (32.0-36.0); Mean Corpuscular Hemoglobin 29.7 pg (27.0-31.0); Mean Corpuscular Volume 91.6 fL (78.0-98.0); Mean Platelet Volume 6.8 fL (7.4-10.4); Platelet Count 255 thou/uL (130-400); RBC Distribution Width 13.7 % (11.5-14.5); Red Blood Cell (RBC) Count 4.11 mill/uL (4.70-6.10)
[2019-01-08 10:45] LABS: INR-International Normal Ratio 1.1; PTT 29.2 SEC (22.9-36.1); Prothrombin Time 14.2 SEC (12.0-14.7)
[2019-01-08 10:52] LABS: ALT (SGPT) 16 U/L (8-55); AST (SGOT) 17 U/L (5-34); Albumin 3.4 g/dL (3.4-4.8); Alkaline Phosphatase 133 U/L (40-110); Anion Gap 14 mmol/L (10-20); BUN (Urea Nitrogen) 22 mg/dL (8.4-25.7); Bilirubin, Total 0.7 mg/dL (0.2-1.2); Calc. Creatinine Clearance 0 mL/min (70-130); Calcium 8.9 mg/dL (7.8-10.44); Carbon Dioxide 25 mmol/L (23-31); Chloride 108 mmol/L (98-107); Estimated GFR-MDRD 71; Glucose 89 mg/dL (83-110); Potassium 3.9 mmol/L (3.5-5.1); Protein, Total 6.4 g/dL (5.8-8.1); Sodium 143 mmol/L (136-145)
[2019-01-08 11:30] LABS: Bacteria/HPF 2+ HPF (None Seen); RBC/HPF Greater than 50 HPF (0-3); Squamous Epithelial None Seen HPF (0-3); WBC/HPF 21-50 HPF (0-3)
== END 2019-01-08 11:50 | disposition home or self-care (01) ==
LOC: SCSER 09:35
DX: R31.0 Gross hematuria (principal); I48.91 Unspecified atrial fibrillation; E03.9 Hypothyroidism, unspecified; M10.9 Gout, unspecified; D64.9 Anemia, unspecified; I50.9 Heart failure, unspecified; Z79.899 Other long term (current) drug therapy
CPT/HCPCS: 51703; 80053; 81015; 85025; 85610; 85730; 87077; 87086; 87186